=== PATIENT | female | born 1965 | race Caucasian/White ===

== ENCOUNTER 2019-08-20 13:11 | Emergency (ER) | payer OTHER, SELFPAY ==
[2019-08-20 13:34] VITALS: BP 133/61; PULSE 93; RESP 20; TEMP 37; O2SAT 96
--- NOTE | 2019-08-20 14:01 | ED.SKABFB ---
HPI - Skin/Abscess/Foreign Bdy General Chief complaint: Skin/Abscess/Foreign Body Stated complaint: Tick bite on stomach Time Seen by Provider: 08/20/19 14:11 Source: patient and RN notes reviewed Mode of arrival: ambulatory Limitations: no limitations History of Present Illness HPI narrative: 54-year-old female presents with concern for sore on her abdomen. Reports she is currently being treated with doxycycline since August 15, 2019 for a tick bite. Reports the area where she pulled the tick off is red and tender with a scab. Reports she has been using antibiotic ointment. Reports the tick bite was 1 month ago, the area became red 1 week after the bite. Reports her doctor saw the tick bite area on August 14 when she prescribed the doxycycline. She reports the area has not worsened since August 14. In a separate complaint she reports exacerbation of chronic neck pain. She denies any weakness in any extremity, decreased range of motion of the neck. MD complaint: insect bite/sting Related Data Home Medications Medication Instructions Recorded Confirmed tramadol 50 mg PO DAILY 08/20/19 08/20/19 Allergies Allergy/AdvReac Type Severity Reaction Status Date / Time cephalexin Allergy Intermediate Swelling Verified 08/20/19 13:52 ciprofloxacin Allergy Intermediate Swelling Verified 08/20/19 13:52 egg Allergy Unknown Unknown Unverified 08/20/19 13:52 sulfamethoxazole Allergy Unknown Rash Verified 08/20/19 13:52 trimethoprim Allergy Unknown Rash Verified 08/20/19 13:52 Review of Systems Review of Systems: Narrative: CONSTITUTIONAL: Denies malaise, chills, sweats, or fever. CARDIOVASCULAR: Denies chest pain, palpitations RESPIRATORY: Denies dyspnea. GASTROINTESTINAL: Denies abdominal pain, nausea, vomiting SKIN: Reports red tender area with scab where she sustained a tick bite on her abdomen MUSCULOSKELETAL: Denies back pain, joint pain, or myalgia. Reports chronic neck pain NEUROLOGIC: Denies numbness, weakness, or headache. All systems reviewed & are unremarkable except as noted in HPI and below PMFSH Comments At time of signature, agree with nursing past medical, surgical, social and family history. There is no relevant family history pertinent to the presenting complaint Exam Narrative: Exam Narrative: GENERAL: Well-appearing, well-nourished, and in no acute distress. HEAD: Normocephalic, atraumatic. EYES: PERRLA, conjunctivae clear, and EOMI. No nystagmus. ENT: Nares clear. Mucous membranes moist. NECK: Supple. CHEST: No respiratory distress. Speaks in full sentences. HEART: Regular rate and rhythm. EXTREMITIES: Normal range of motion. No edema. Normal strength and sensation. SKIN: Warm, dry, no rash. 3 cm x 2 cm area of erythema with mild induration, superficial no fluctuation, center scab approximately 0.5 cm NEURO: Alert and oriented x3. No focal deficits. Cranial nerves II through XII grossly intact PSYCH: Normal mood and affect Course Course Emergency Course: Discussed with patient treatment of insect bite, discussed not adding an additional antibiotic for cellulitis because the area has not evolved in the last 3 weeks, erythema is superficial. Patient is aware of diagnosis, understands and agrees to treatment plan. Anticipatory guidance given. Patient agrees to follow-up as directed and is aware of reasons to seek care at the emergency department. Portions of this record may have been created with voice recognition software Vital Signs Vital signs: Vital Signs Temperature 98.6 F 08/20/19 13:34 Pulse Rate 93 08/20/19 13:34 Respiratory Rate 08/20/19 13:34 Blood Pressure 133/61 08/20/19 13:34 Pulse Oximetry 96 08/20/19 13:34 Temperature 98.6 F 08/20/19 13:34 Pulse Rate 93 08/20/19 13:34 Respiratory Rate 08/20/19 13:34 Blood Pressure 133/61 08/20/19 13:34 Pulse Oximetry 96 08/20/19 13:34 Reviewed. MDM - Skin/Abscess/Foreign Bdy MDM Narrative Medical decision making connor
== END 2019-08-20 14:25 | disposition home or self-care (01) ==
PROVIDERS: Emergency Provider Nurse Practitioner; PCP Internal Medicine
DX: S30.861A Insect bite (nonvenomous) of abdominal wall, initial encounter (principal); M54.2 Cervicalgia; G89.29 Other chronic pain; W57.XXXA Bitten or stung by nonvenomous insect and other nonvenomous arthropods, initial encounter; I10 Essential (primary) hypertension; E11.9 Type 2 diabetes mellitus without complications; E78.00 Pure hypercholesterolemia, unspecified; Z79.4 Long term (current) use of insulin
CPT/HCPCS: 99211; G0463

== ENCOUNTER 2019-09-21 14:49 | Emergency (ER) | payer OTHER, SELFPAY ==
[2019-09-21 14:52] VITALS: BP 149/83; PULSE 94; RESP 20; TEMP 36.7; O2SAT 98
--- NOTE | 2019-09-21 15:15 | ED.SKABFB ---
HPI - Skin/Abscess/Foreign Bdy General Stated complaint: right breast abcess Time Seen by Provider: 09/21/19 15:15 Source: patient and RN notes reviewed History of Present Illness HPI narrative: Patient is a 54-year-old female who presents the urgent care with complaints of a possible abscess to the right breast. Patient states that she had a cyst removed from the exact same area approximately 2 to 3 years ago and it has now returned. Patient was treated with Augmentin on 08-28 for possible abscess of the breast and it has not worked . Patient states that in the past they also treated her with antibiotics and then sent her to surgery immediately after her doctor's appointment. Patient states that it is present in the exact same form. Denies of any fever, chills, nausea, vomiting. Denies any change in the area. States it is very painful. Denies of any history of breast cancer. Patient is anxious but otherwise no other acute distress noted. Patient aware of the plan of care. Related Data Home Medications Medication Instructions Recorded Confirmed albuterol sulfate 1 puff INHALATION DIRECTED PRN 08/20/19 09/21/19 albuterol sulfate 2.5 mg INHALATION DIRECTED PRN 08/20/19 09/21/19 cariprazine [Vraylar] 3 mg PO DAILY 08/20/19 09/21/19 cetirizine 10 mg PO DAILY 08/20/19 09/21/19 cholecalciferol (vitamin D3) 1,000 unit PO DAILY 08/20/19 09/21/19 [Vitamin D3] duloxetine 60 mg PO BID 08/20/19 09/21/19 famotidine 20 mg PO BID 08/20/19 09/21/19 gabapentin 300 mg PO DAILY 08/20/19 09/21/19 glimepiride 4 mg PO DAILY 08/20/19 09/21/19 hydrochlorothiazide 12.5 mg PO TID 08/20/19 09/21/19 hydroxyzine HCl 50 mg PO DAILY 08/20/19 09/21/19 ibuprofen 600 mg PO Q8-12H PRN 08/20/19 09/21/19 insulin glargine [Basaglar KwikPen 0 unit SUBCUT DIRECTED 08/20/19 09/21/19 U-100 Insulin] insulin lispro [Admelog SoloStar 0 unit SUBCUT DIRECTED 08/20/19 09/21/19 U-100 Insulin] losartan 50 mg PO DAILY 08/20/19 09/21/19 nicotine 1 patch TRANSDERMAL DAILY 08/20/19 09/21/19 pravastatin 40 mg PO DAILY 08/20/19 09/21/19 ropinirole 2 mg PO POST-TRANSFUSION 08/20/19 09/21/19 sitagliptin [Januvia] 100 mg PO DAILY 08/20/19 09/21/19 tramadol 50 mg PO DAILY 08/20/19 09/21/19 umeclidinium [Incruse Ellipta] 1 inh INHALATION DAILY 08/20/19 09/21/19 Allergies Allergy/AdvReac Type Severity Reaction Status Date / Time cephalexin Allergy Intermediate Swelling Verified 08/20/19 13:52 ciprofloxacin Allergy Intermediate Swelling Verified 08/20/19 13:52 egg Allergy Unknown Unknown Unverified 08/20/19 13:52 sulfamethoxazole Allergy Unknown Rash Verified 08/20/19 13:52 trimethoprim Allergy Unknown Rash Verified 08/20/19 13:52 peanut Allergy Rash Verified 09/21/19 15:11 Review of Systems Review of Systems: Narrative: CONSTITUTIONAL: Denies fever, chills, or sweats. EYES: Denies visual changes, redness, or discharge. ENT: Denies rhinorrhea, congestion, sore throat, or otalgia. CARDIOVASCULAR: Denies chest pain, palpitations, or edema. RESPIRATORY: Denies cough or dyspnea. GASTROINTESTINAL: Denies abdominal pain, nausea, vomiting, or diarrhea. GENITOURINARY: Denies dysuria or hematuria. SKIN: Reports of an abscess to the right breast MUSCULOSKELETAL: Denies back pain, joint pain, or myalgia. NEUROLOGIC: Denies headache, numbness, or weakness. All other systems reviewed are negative, except as documented in HPI. PMFSH Comments At the time of my signature, I reviewed and agree with the nursing past medical, surgical, social, and family history. There is no relevant family history pertinent to the patient complaint. Exam Narrative: Exam Narrative: GENERAL: This is a well-nourished, well-developed patient, in no apparent distress. HEAD: normocephalic, atraumatic. EYES: PERRL. Sclera clear/white. Vision is grossly intact. EARS: External ears normal NOSE: External nose normal with no obvious nasal discharge, nares without redness, no rhinorrhea. THROAT: Mucous
== END 2019-09-21 15:35 | disposition home or self-care (01) ==
PROVIDERS: Emergency Provider Nurse Practitioner Family; PCP Internal Medicine
DX: N63.10 Unspecified lump in the right breast, unspecified quadrant (principal); E78.00 Pure hypercholesterolemia, unspecified; J45.909 Unspecified asthma, uncomplicated; I10 Essential (primary) hypertension; K21.9 Gastro-esophageal reflux disease without esophagitis; E11.9 Type 2 diabetes mellitus without complications; Z79.4 Long term (current) use of insulin; Z79.84 Long term (current) use of oral hypoglycemic drugs
CPT/HCPCS: 99213; G0463

== ENCOUNTER 2019-11-26 16:42 | Emergency (ER) | payer OTHER, SELFPAY ==
[2019-11-26 16:48] VITALS: BP 146/66; PULSE 102; RESP 20; TEMP 36.8; O2SAT 96
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
[2019-11-26] MEDS: SILVER SULFADIAZINE 1% CR 50 GM JAR (*BKC) 1 APPLIC TOPICAL (17:30)
[2019-11-26] MEDS: KETOROLAC (*BKC) 60 MG/2 ML VIAL IM (17:30)
== END 2019-11-26 18:02 | disposition home or self-care (01) ==
PROVIDERS: Emergency Provider Nurse Practitioner Family
DX: T22.112A Burn of first degree of left forearm, initial encounter (principal); X10.2XXA Contact with fats and cooking oils, initial encounter; M19.90 Unspecified osteoarthritis, unspecified site; J45.909 Unspecified asthma, uncomplicated; E11.9 Type 2 diabetes mellitus without complications; K21.9 Gastro-esophageal reflux disease without esophagitis; E78.00 Pure hypercholesterolemia, unspecified; I10 Essential (primary) hypertension
CPT/HCPCS: 16020; 96372; 99213; A9270; G0463; J1885

== ENCOUNTER 2020-01-08 17:29 | Emergency (ER) | payer OTHER, SELFPAY ==
--- NOTE | ~2020-01-08 | XR_ITS ---
EXAMINATION: XR hand RT min 3V INDICATION: Right hand pain TECHNIQUE: Three views of the right hand are obtained. COMPARISON: Left wrist radiograph dated 06/18/2018 FINDINGS: There is no fracture, dislocation, or subluxation. The bones, soft tissues, and joint space s are normal. IMPRESSION: 1. No acute osseous abnormality. Reviewed, dictated and finalized at location A.
[2020-01-08 17:34] VITALS: BP 130/75; PULSE 105; RESP 20; TEMP 36.9; O2SAT 96
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
== END 2020-01-08 18:40 | disposition home or self-care (01) ==
PROVIDERS: Emergency Provider Registered Nurse; PCP Internal Medicine
DX: S60.221D Contusion of right hand, subsequent encounter (principal); W22.09XD Striking against other stationary object, subsequent encounter; M19.90 Unspecified osteoarthritis, unspecified site; K21.9 Gastro-esophageal reflux disease without esophagitis; E11.9 Type 2 diabetes mellitus without complications; E78.00 Pure hypercholesterolemia, unspecified; I10 Essential (primary) hypertension
CPT/HCPCS: 73130; 99213; G0463

== ENCOUNTER 2020-01-21 13:51 | Emergency (ER) | payer OTHER, SELFPAY ==
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
[2020-01-21 14:01] VITALS: BP 128/81; PULSE 101; RESP 20; TEMP 36.5; O2SAT 98
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
== END 2020-01-21 15:30 | disposition home or self-care (01) ==
PROVIDERS: Emergency Provider Registered Nurse; PCP Internal Medicine
DX: R07.89 Other chest pain (principal); M54.2 Cervicalgia; S70.11XA Contusion of right thigh, initial encounter; S70.12XA Contusion of left thigh, initial encounter; S80.12XA Contusion of left lower leg, initial encounter; V47.5XXA Car driver injured in collision with fixed or stationary object in traffic accident, initial encounter; F17.210 Nicotine dependence, cigarettes, uncomplicated; M19.90 Unspecified osteoarthritis, unspecified site; E11.9 Type 2 diabetes mellitus without complications; K21.9 Gastro-esophageal reflux disease without esophagitis; E78.00 Pure hypercholesterolemia, unspecified; I10 Essential (primary) hypertension
CPT/HCPCS: 71046; 72050; 99214; G0463

== ENCOUNTER 2020-03-12 14:12 | Emergency (ER) | payer OTHER, SELFPAY ==
[2020-03-12 14:22] VITALS: BP 185/115; PULSE 104; RESP 20; TEMP 36.9; O2SAT 97
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
== END 2020-03-12 14:50 | disposition home or self-care (01) ==
PROVIDERS: Emergency Provider Nurse Practitioner; PCP Internal Medicine
DX: T22.212A Burn of second degree of left forearm, initial encounter (principal); X77.8XXA Intentional self-harm by other hot objects, initial encounter; F17.210 Nicotine dependence, cigarettes, uncomplicated; M19.90 Unspecified osteoarthritis, unspecified site; J45.909 Unspecified asthma, uncomplicated; E11.9 Type 2 diabetes mellitus without complications; K21.9 Gastro-esophageal reflux disease without esophagitis; E78.00 Pure hypercholesterolemia, unspecified; I10 Essential (primary) hypertension; F43.10 Post-traumatic stress disorder, unspecified
CPT/HCPCS: 16020; 99212; G0463

== ENCOUNTER 2020-08-09 16:28 | Emergency (ER) | payer OTHER, SELFPAY ==
[2020-08-09 16:36] VITALS: BP 128/90; PULSE 98; RESP 16; TEMP 36.8; O2SAT 99
--- NOTE | 2020-08-09 16:38 | ED.SKABFB ---
HPI - Skin/Abscess/Foreign Bdy General Chief complaint: Skin/Abscess/Foreign Body Stated complaint: Fish hook in hand Time Seen by Provider: 08/09/20 16:38 Source: patient and RN notes reviewed History of Present Illness HPI narrative: Patient is a 55-year-old female who presents the urgent care with complaints of a fishhook stuck in the right hand. Patient states that she was trying to pull in a large turtle while fishing prior to arrival and the hook went through her right hand. Patient states that she has attempted to pull it out with pliers but it is really stuck . Patient is not up-to-date on her tetanus. No other acute complaints. No acute distress noted. Patient aware of the plan of care. Some parts of this dictation were generated by voice recognition software and may contain typographical and/or grammatical inaccuracies. Related Data Home Medications Medication Instructions Recorded Confirmed cariprazine [Vraylar] 4.5 mg PO DAILY 08/20/19 08/09/20 cetirizine 10 mg PO DAILY 08/20/19 08/09/20 cholecalciferol (vitamin D3) 1,000 unit PO DAILY 08/20/19 08/09/20 [Vitamin D3] duloxetine 60 mg PO BID 08/20/19 08/09/20 hydrochlorothiazide 12.5 mg PO TID 08/20/19 08/09/20 hydroxyzine HCl 50 mg PO DAILY 08/20/19 08/09/20 ibuprofen 600 mg PO Q8-12H PRN 08/20/19 08/09/20 losartan 50 mg PO DAILY 08/20/19 08/09/20 pravastatin 40 mg PO DAILY 08/20/19 08/09/20 ropinirole 2 mg PO POST-TRANSFUSION 08/20/19 08/09/20 tramadol 50 mg PO DAILY 08/20/19 08/09/20 Humalog Mix 75-25(U-100)Insuln 75 sliding scale dose SUBCUT 11/26/19 08/09/20 TIDWMEAL pen needle, diabetic [Unifine 11/26/19 01/08/20 Pentips] empagliflozin [Jardiance] 10 mg PO DAILY 01/08/20 08/09/20 umeclidinium [Incruse Ellipta] 1 inh INHALATION HS 01/08/20 08/09/20 albuterol sulfate 03/12/20 03/12/20 gabapentin 300 mg PO DAILY 03/12/20 08/09/20 albuterol sulfate [Ventolin HFA] 90 mcg INHALATION PRN PRN 08/09/20 08/09/20 Allergies Allergy/AdvReac Type Severity Reaction Status Date / Time cephalexin Allergy Intermediate Swelling Verified 08/09/20 16:45 ciprofloxacin Allergy Intermediate Swelling Verified 08/09/20 16:45 egg Allergy Unknown Unknown Verified 08/09/20 16:45 sulfamethoxazole Allergy Unknown Rash Verified 08/09/20 16:45 trimethoprim Allergy Unknown Rash Verified 08/09/20 16:45 peanut Allergy Rash Verified 08/09/20 16:45 Review of Systems Review of Systems: Narrative: CONSTITUTIONAL: Denies fever, chills, or sweats. EYES: Denies visual changes, redness, or discharge. ENT: Denies rhinorrhea, congestion, sore throat, or otalgia. CARDIOVASCULAR: Denies chest pain, palpitations, or edema. RESPIRATORY: Denies cough or dyspnea. GASTROINTESTINAL: Denies abdominal pain, nausea, vomiting, or diarrhea. GENITOURINARY: Denies dysuria or hematuria. SKIN: Reports of a fishhook stuck in the right hand MUSCULOSKELETAL: Denies back pain, joint pain, or myalgia. NEUROLOGIC: Denies headache, numbness, or weakness. All other systems reviewed are negative, except as documented in HPI. [facility] Past Medical History Medical History Anxiety Arthritis Asthma Depression Diabetes History of gastroesophageal reflux (GERD) Hx of migraines Hypercholesteremia Hypertension Neck pain Post traumatic stress disorder (PTSD) Surgical History Surgical History History of carpal tunnel surgery bilateral Hx of tubal ligation Family History Family History Father , COPD Smoker in home Mother Diabetes mellitus Grandparent Ovarian cancer Social History Social History (Updated 01/23/20 @ 16:09 by Valentina Joe NP) Smoking packs per day: 0.5 Smoking cigarettes per day: 10.0 Years smoked: 50 Smoking pack-years: 25.00 Smoking status: Current every day smoker Tobacco type: cigarettes S
[2020-08-09] MEDS: TETANUS,DIPHTHERIA,AC PERTUSSIS ADULT (0.5 ML) BOOSTRIX IM (17:10)
== END 2020-08-09 17:23 | disposition home or self-care (01) ==
PROVIDERS: Emergency Provider Nurse Practitioner Family; PCP Internal Medicine
DX: S61.441A Puncture wound with foreign body of right hand, initial encounter (principal); X58.XXXA Exposure to other specified factors, initial encounter; Z23 Encounter for immunization; F17.210 Nicotine dependence, cigarettes, uncomplicated; M19.90 Unspecified osteoarthritis, unspecified site; E11.9 Type 2 diabetes mellitus without complications; K21.9 Gastro-esophageal reflux disease without esophagitis; E78.00 Pure hypercholesterolemia, unspecified; I10 Essential (primary) hypertension; F41.9 Anxiety disorder, unspecified; F32.9 Major depressive disorder, single episode, unspecified; F43.10 Post-traumatic stress disorder, unspecified
CPT/HCPCS: 10120; 90471; 90715; 99213; G0463

== ENCOUNTER 2020-11-29 17:41 | Emergency (ER) | payer OTHER, SELFPAY ==
--- NOTE | ~2020-11-29 | XR_ITS ---
XR foot LT min 3V DATE: 11/29/2020 17:58 INDICATION: Dropped rock on top of foot. Dorsal distal bruising and pain TECHNIQUE: 4 views COMPARISON: None FINDINGS: Plantar calcaneal enthesopathy. No fracture or dislocation, periosteal reaction or bone adelfo truction. Joint spaces are preserved. No erosive change. IMPRESSION: No fracture or dislocation Plantar calcaneal enthesopathy Reviewed, dictated and finalized at location A.
[2020-11-29 17:47] VITALS: BP 142/95; PULSE 105; RESP 16; TEMP 36.2; O2SAT 97
--- NOTE | 2020-11-29 18:00 | PC.NURSE ---
PT DECLINED ICE AND WHEELCHAIR FOR COMFORT
--- NOTE | 2020-11-29 18:16 | ED.LOWEXIN ---
HPI - Extremity Injury (Lower) General Chief Complaint: Extremity Injury, Lower Stated Complaint: Left foot injury Time Seen by Provider: 11/29/20 18:16 Source: patient History of Present Illness HPI Narrative: Patient presents with left foot bruising and tenderness. Patient states 3 days ago she dropped a heavy rock on her left foot. Patient is here on the advice of her daughter to have an x-ray of her foot. Related Data Home Medications Medication Instructions Recorded Confirmed cariprazine [Vraylar] 4.5 mg PO DAILY 08/20/19 11/29/20 cetirizine 10 mg PO DAILY 08/20/19 11/29/20 cholecalciferol (vitamin D3) 1,000 unit PO DAILY 08/20/19 11/29/20 [Vitamin D3] duloxetine 60 mg PO BID 08/20/19 11/29/20 hydrochlorothiazide 12.5 mg PO TID 08/20/19 11/29/20 hydroxyzine HCl 50 mg PO DAILY 08/20/19 11/29/20 ibuprofen 600 mg PO Q8-12H PRN 08/20/19 11/29/20 losartan 50 mg PO DAILY 08/20/19 11/29/20 pravastatin 40 mg PO DAILY 08/20/19 11/29/20 ropinirole 2 mg PO POST-TRANSFUSION 08/20/19 11/29/20 tramadol 50 mg PO DAILY 08/20/19 11/29/20 Humalog Mix 75-25(U-100)Insuln 40 units SUBCUT BID 11/26/19 11/29/20 pen needle, diabetic [Unifine 11/26/19 01/08/20 Pentips] empagliflozin [Jardiance] 10 mg PO DAILY 01/08/20 11/29/20 umeclidinium [Incruse Ellipta] 1 inh INHALATION HS 01/08/20 11/29/20 albuterol sulfate 2.5 mg INHALATION Q4-6H 03/12/20 03/12/20 gabapentin 300 mg PO DAILY 03/12/20 11/29/20 albuterol sulfate [Ventolin HFA] 90 mcg INHALATION PRN PRN 08/09/20 11/29/20 Allergies Allergy/AdvReac Type Severity Reaction Status Date / Time cephalexin Allergy Intermediate Swelling Verified 08/09/20 16:45 ciprofloxacin Allergy Intermediate Swelling Verified 08/09/20 16:45 egg Allergy Unknown Unknown Verified 08/09/20 16:45 sulfamethoxazole Allergy Unknown Rash Verified 08/09/20 16:45 trimethoprim Allergy Unknown Rash Verified 08/09/20 16:45 peanut Allergy Rash Verified 08/09/20 16:45 Review of Systems Review of Systems: CONSTITUTIONAL: Denies fever, chills, or sweats. EYES: Denies visual changes, redness, or discharge. ENT: Denies rhinorrhea, congestion, sore throat, or otalgia. CARDIOVASCULAR: Denies chest pain, palpitations, or edema. RESPIRATORY: Denies cough or dyspnea. GASTROINTESTINAL: Denies abdominal pain, nausea, vomiting, or diarrhea. GENITOURINARY: Denies dysuria or hematuria. SKIN: Denies rash or itching. MUSCULOSKELETAL: Denies back pain, joint pain, or myalgia. NEUROLOGIC: Denies headache, numbness, or weakness. PSYCHIATRIC: Denies anxiety or depression. [facility] Past Medical History Medical History Anxiety Arthritis Asthma Depression Diabetes History of gastroesophageal reflux (GERD) Hx of migraines Hypercholesteremia Hypertension Neck pain Post traumatic stress disorder (PTSD) Surgical History Surgical History History of carpal tunnel surgery bilateral Hx of tubal ligation Family History Family History Father , COPD Smoker in home Mother Diabetes mellitus Grandparent Ovarian cancer Social History Social History (Updated 01/23/20 @ 16:09 by Valentina Joe NP) Smoking packs per day: 0.5 Smoking cigarettes per day: 10.0 Years smoked: 50 Smoking pack-years: 25.00 Smoking status: Current every day smoker Tobacco type: cigarettes Second hand tobacco smoke exposure: No Alcohol intake: never Substance use: never Gender identity (if verbalized by the patient): Female Comments At time of signature, agree with nursing past medical, surgical, social and family history. There is no relevant family history pertinent to the presenting complaint Exam Narrative: GENERAL: Well-appearing, well-nourished, and in no acute distress. HEAD: Normocephalic, atraumatic. EYES: PERRLA and EOMI. ENT: Nares clear, no r
== END 2020-11-29 18:37 | disposition home or self-care (01) ==
PROVIDERS: Emergency Provider Nurse Practitioner Family; PCP Internal Medicine
DX: S90.32XA Contusion of left foot, initial encounter (principal); W20.8XXA Other cause of strike by thrown, projected or falling object, initial encounter; F17.219 Nicotine dependence, cigarettes, with unspecified nicotine-induced disorders; M19.90 Unspecified osteoarthritis, unspecified site; J45.909 Unspecified asthma, uncomplicated; E11.9 Type 2 diabetes mellitus without complications; K21.9 Gastro-esophageal reflux disease without esophagitis; E78.00 Pure hypercholesterolemia, unspecified; I10 Essential (primary) hypertension; F41.9 Anxiety disorder, unspecified
CPT/HCPCS: 73630; 99213; G0463

== ENCOUNTER 2021-08-20 17:36 | Emergency (ER) | payer OTHER, SELFPAY ==
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
[2021-08-20 17:51] VITALS: BP 178/92; PULSE 118; RESP 16; TEMP 37.2; O2SAT 96
[2021-08-20 18:03] VITALS: BP 178/92; PULSE 118; RESP 16; TEMP 37.2; O2SAT 96
== END 2021-08-20 18:20 | disposition home or self-care (01) ==
PROVIDERS: Emergency Provider Nurse Practitioner; PCP Physician Assistant
DX: S69.91XA Unspecified injury of right wrist, hand and finger(s), initial encounter (principal); W22.09XA Striking against other stationary object, initial encounter; F17.210 Nicotine dependence, cigarettes, uncomplicated; M19.90 Unspecified osteoarthritis, unspecified site; J45.909 Unspecified asthma, uncomplicated; E11.9 Type 2 diabetes mellitus without complications; K21.9 Gastro-esophageal reflux disease without esophagitis; E78.00 Pure hypercholesterolemia, unspecified; I10 Essential (primary) hypertension
CPT/HCPCS: 73130; 99213; G0463

== ENCOUNTER 2022-09-20 14:41 | Emergency (ER) | payer OTHER, SELFPAY ==
[2022-09-20 14:46] VITALS: BP 143/87; PULSE 96; RESP 20; TEMP 36.1; O2SAT 96
--- NOTE | 2022-09-20 14:47 | ED.EYEPROB ---
HPI - Eye Problem General Chief complaint: Eye Problems Stated complaint: outside of left eye pain Time Seen by Provider: 09/20/22 14:47 Source: patient and RN notes reviewed History of Present Illness HPI Narrative: Patient is a 57-year-old female presents to urgent care with complaints of pain to the inner canthus of the left eye. Patient states that she has had minimal drainage but mostly pain. Denies any known injury or changes in vision. No acute distress noted. Patient states that she has used a warm compress. Patient aware of the care. Some parts of this dictation were generated by voice recognition software and may contain typographical and/or grammatical inaccuracies. Related Data Home Medications Medication Instructions Recorded Confirmed cetirizine 10 mg tablet 10 mg PO DAILY 08/20/19 08/20/21 cholecalciferol (vitamin D3) 25 1,000 unit PO DAILY 08/20/19 08/20/21 mcg (1,000 unit) tablet (Vitamin D3) hydrochlorothiazide 12.5 mg capsule 12.5 mg PO TID 08/20/19 08/20/21 ibuprofen 600 mg tablet 600 mg PO Q8-12H PRN Pain 08/20/19 08/20/21 losartan 50 mg tablet 50 mg PO DAILY 08/20/19 08/20/21 pravastatin 40 mg tablet 40 mg PO DAILY 08/20/19 08/20/21 ropinirole 2 mg tablet 2 mg PO POST-TRANSFUSION 08/20/19 08/20/21 tramadol 50 mg tablet 50 mg PO DAILY 08/20/19 08/20/21 Humalog Mix 75-25(U-100)Insuln 40 units subcut BID 11/26/19 08/20/21 pen needle, diabetic 32 gauge x 11/26/19 01/08/2032 (Unifine Pentips) empagliflozin 10 mg tablet 10 mg PO DAILY 01/08/20 08/20/21 (Jardiance) umeclidinium 62.5 mcg/actuation 1 inh inhalation HS 01/08/20 08/20/21 blister powder for inhalation (Incruse Ellipta) albuterol sulfate 2.5 mg/3 mL 2.5 mg inhalation Q4-6H 03/12/20 08/20/21 (0.083 %) solution for nebulization gabapentin 300 mg capsule 300 mg PO DAILY 03/12/20 08/20/21 albuterol sulfate 90 mcg/actuation 90 mcg inhalation PRN PRN 08/09/20 08/20/21 aerosol inhaler (Ventolin HFA) Shortness Of Breath Or Wheezing Allergies Allergy/AdvReac Type Severity Reaction Status Date / Time cephalexin Allergy Intermediate Swelling Verified 08/20/21 17:47 ciprofloxacin Allergy Intermediate Swelling Verified 08/20/21 17:47 egg Allergy Unknown Unknown Verified 08/20/21 17:47 sulfamethoxazole Allergy Unknown Rash Verified 08/20/21 17:47 trimethoprim Allergy Unknown Rash Verified 08/20/21 17:47 peanut Allergy Rash Verified 08/20/21 17:47 Review of Systems Review of Systems: CONSTITUTIONAL: Denies fever, chills, or sweats. EYES: Denies visual changes, redness, or discharge. Reports pain to the inner canthus of the ENT: Denies rhinorrhea, congestion, sore throat, or otalgia. CARDIOVASCULAR: Denies chest pain, palpitations, or edema. RESPIRATORY: Denies cough or dyspnea. GASTROINTESTINAL: Denies abdominal pain, nausea, vomiting, or diarrhea. GENITOURINARY: Denies dysuria or hematuria. SKIN: Denies rash or itching. MUSCULOSKELETAL: Denies back pain, joint pain, or myalgia. NEUROLOGIC: Denies headache, numbness, or weakness. All other systems reviewed are negative, except as documented in HPI. [facility] Past Medical History Medical History Anxiety Arthritis Asthma Depression Diabetes History of gastroesophageal reflux (GERD) Hx of migraines Hypercholesteremia Hypertension Neck pain Post traumatic stress disorder (PTSD) Surgical History Surgical History History of carpal tunnel surgery bilateral Hx of tubal ligation Family History Family History Father , COPD Smoker in home Mother Diabetes mellitus Grandparent Ovarian cancer Social History Social History (Updated 01/23/20 @ 16:09 by Valentina Joe NP) Smoking packs per day: 0.5 Smoking cigarettes per day: 10.0 Years smoked: 50 Smoking pack-years: 25.00 Smoking
== END 2022-09-20 15:10 | disposition home or self-care (01) ==
PROVIDERS: Emergency Provider Nurse Practitioner Family; PCP Internal Medicine
DX: H00.015 Hordeolum externum left lower eyelid (principal); F17.210 Nicotine dependence, cigarettes, uncomplicated; M19.90 Unspecified osteoarthritis, unspecified site; E11.9 Type 2 diabetes mellitus without complications; K21.9 Gastro-esophageal reflux disease without esophagitis; E78.00 Pure hypercholesterolemia, unspecified; I10 Essential (primary) hypertension
CPT/HCPCS: 99213; G0463

== ENCOUNTER 2023-06-08 19:50 | Emergency (ER) | payer OTHER, SELFPAY ==
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
[2023-06-08 19:56] VITALS: BP 155/95; PULSE 88; RESP 20; TEMP 37; O2SAT 99
--- NOTE | 2023-06-08 20:00 | ED.LOWEXIN ---
HPI - Extremity Injury (Lower) General Stated Complaint: Fall Injury/Right Knee Time Seen by Provider: 06/08/23 20:04 Source: patient Mode of arrival: ambulatory Limitations: no limitations History of Present Illness HPI Narrative: 58 y/o female presented for c/o right knee pain after a fall prior to arrival. States she tripped over a rug and may have twisted her knee. Endorses pain with ambulating. Denies numbness, tingling or weakness, denies deformity or swelling at this time. Denies any other injury. Pt drove herself. Related Data Home Medications Medication Instructions Recorded Confirmed cetirizine 10 mg tablet 10 mg PO DAILY 08/20/19 06/08/23 cholecalciferol (vitamin D3) 25 1,000 unit PO DAILY 08/20/19 06/08/23 mcg (1,000 unit) tablet (Vitamin D3) hydrochlorothiazide 12.5 mg capsule 12.5 mg PO TID 08/20/19 06/08/23 ibuprofen 600 mg tablet 600 mg PO Q8-12H PRN Pain 08/20/19 06/08/23 pen needle, diabetic 32 gauge x 11/26/19 06/08/23/32 (Unifine Pentips) empagliflozin 10 mg tablet 10 mg PO DAILY 01/08/20 06/08/23 (Jardiance) albuterol sulfate 2.5 mg/3 mL 2.5 mg inhalation Q4-6H 03/12/20 06/08/23 (0.083 %) solution for nebulization gabapentin 300 mg capsule 300 mg PO DAILY 03/12/20 06/08/23 albuterol sulfate 90 mcg/actuation 90 mcg inhalation PRN PRN 08/09/20 06/08/23 aerosol inhaler (Ventolin HFA) Shortness Of Breath Or Wheezing atorvastatin 40 mg tablet 40 mg PO DAILY 06/08/23 06/08/23 insulin lispro protamine-lispro 35 unit subcut BID 06/08/23 06/08/23 100 unit/mL (75-25) subcutaneous pen lidocaine 5 % topical patch 1 patch topical DAILY 06/08/23 06/08/23 Allergies Allergy/AdvReac Type Severity Reaction Status Date / Time cephalexin Allergy Intermediate Swelling Verified 06/08/23 20:02 ciprofloxacin Allergy Intermediate Swelling Verified 06/08/23 20:02 egg Allergy Unknown Unknown Verified 06/08/23 20:02 sulfamethoxazole Allergy Unknown Rash Verified 06/08/23 20:02 trimethoprim Allergy Unknown Rash Verified 06/08/23 20:02 peanut Allergy Rash Verified 06/08/23 20:02 Review of Systems Review of Systems: CONSTITUTIONAL: Denies body aches, fever, chills CARDIOVASCULAR: Denies chest pain, palpitations, or edema. RESPIRATORY: Denies cough or dyspnea. GASTROINTESTINAL: Denies abdominal pain, nausea, vomiting, or diarrhea. SKIN: Denies rash, itching, or wounds. MUSCULOSKELETAL: Reports right knee pain Denies back pain, or myalgia. NEUROLOGIC: Denies numbness, tingling, or weakness. All systems reviewed & are unremarkable except as noted in HPI and below PMFSH Past Medical History Medical History Anxiety Arthritis Asthma Depression Diabetes History of gastroesophageal reflux (GERD) Hx of migraines Hypercholesteremia Hypertension Neck pain Post traumatic stress disorder (PTSD) Surgical History Surgical History History of carpal tunnel surgery bilateral Hx of tubal ligation Family History Family History Father , COPD Smoker in home Mother Diabetes mellitus Grandparent Ovarian cancer Social History Social History Smoking packs per day: 0.5 Smoking cigarettes per day: 10.0 Years smoked: 50 Smoking pack-years: 25.00 Smoking status: Current every day smoker Tobacco type: cigarettes Second hand tobacco smoke exposure: No Alcohol intake: never Substance use: never Living arrangements: with family Occupation/Education: unemployed Gender identity (if verbalized by the patient): Female Comments At time of signature, I have reviewed and agree with nursing past medical, surgical, social and family history unless otherwise noted. Please see nursing chart for further information. There is no relevant family history pertinent to
== END 2023-06-08 20:53 | disposition home or self-care (01) ==
PROVIDERS: Emergency Provider Nurse Practitioner Family; PCP Internal Medicine
DX: M25.561 Pain in right knee (principal); F17.210 Nicotine dependence, cigarettes, uncomplicated; M19.90 Unspecified osteoarthritis, unspecified site; J45.909 Unspecified asthma, uncomplicated; Z79.4 Long term (current) use of insulin; E11.9 Type 2 diabetes mellitus without complications; K21.9 Gastro-esophageal reflux disease without esophagitis; E78.00 Pure hypercholesterolemia, unspecified; I10 Essential (primary) hypertension
CPT/HCPCS: 73564; 99213; G0463

== ENCOUNTER 2023-08-18 10:51 | Emergency (ER) | payer OTHER, SELFPAY ==
[2023-08-18 10:56] VITALS: BP 140/70; PULSE 91; RESP 18; TEMP 36.4; O2SAT 97
--- NOTE | 2023-08-18 11:07 | ED.EAR ---
HPI - Ear Problem General Chief complaint: Ear Stated complaint: Left Ear Pain Time Seen by Provider: 08/18/23 11:09 Source: patient Mode of arrival: ambulatory Limitations: no limitations History of Present Illness HPI Narrative: 58-year-old female presented for complaint of left ear pain over the past few days. Endorses slight decrease in hearing. Taking ibuprofen without any improvement. Tinnitus, dizziness, nausea vomiting, fevers or chills. MD Complaint: ear pain Related Data Home Medications Medication Instructions Recorded Confirmed cholecalciferol (vitamin D3) 25 1,000 unit PO DAILY 08/20/19 08/18/23 mcg (1,000 unit) tablet (Vitamin D3) pen needle, diabetic 32 gauge x 11/26/19 08/18/23 (Unifine Pentips) empagliflozin 10 mg tablet 10 mg PO DAILY 01/08/20 08/18/23 (Jardiance) albuterol sulfate 2.5 mg/3 mL 2.5 mg inhalation Q4-6H 03/12/20 08/18/23 (0.083 %) solution for nebulization gabapentin 300 mg capsule 300 mg PO DAILY 03/12/20 08/18/23 albuterol sulfate 90 mcg/actuation 90 mcg inhalation PRN PRN 08/09/20 08/18/23 aerosol inhaler (Ventolin HFA) Shortness Of Breath Or Wheezing insulin lispro protamine-lispro 35 unit subcut BID 06/08/23 08/18/23 100 unit/mL (75-25) subcutaneous pen aripiprazole 10 mg tablet 10 mg PO DAILY 08/18/23 08/18/23 ciprofloxacin HCl 0.3 % eye drops See Rx Instructions .Route .COMPLEX 08/18/23 08/18/23 escitalopram oxalate 10 mg tablet 10 mg PO DAILY 08/18/23 08/18/23 Allergies Allergy/AdvReac Type Severity Reaction Status Date / Time cephalexin Allergy Intermediate Swelling Verified 08/18/23 11:06 ciprofloxacin Allergy Intermediate Swelling Verified 08/18/23 11:06 egg Allergy Unknown Unknown Verified 08/18/23 11:06 sulfamethoxazole Allergy Unknown Rash Verified 08/18/23 11:06 trimethoprim Allergy Unknown Rash Verified 08/18/23 11:06 peanut Allergy Rash Verified 08/18/23 11:06 Review of Systems Review of Systems: CONSTITUTIONAL: Denies malaise, chills, or fever. EYES: Denies visual changes, redness, or discharge. ENT: Denies rhinorrhea, congestion, sinus pain, and sore throat. Reports ear pain CARDIOVASCULAR: Denies chest pain, palpitations, or edema. RESPIRATORY: Denies cough or dyspnea. GASTROINTESTINAL: Denies abdominal pain, nausea, vomiting, diarrhea SKIN: Denies rash or itching. MUSCULOSKELETAL: Denies myalgia. NEUROLOGIC: Denies headache. All systems reviewed & are unremarkable except as noted in HPI and below PMFSH Past Medical History Medical History Anxiety Arthritis Asthma Depression Diabetes History of gastroesophageal reflux (GERD) Hx of migraines Hypercholesteremia Hypertension Neck pain Post traumatic stress disorder (PTSD) Surgical History Surgical History History of carpal tunnel surgery bilateral Hx of tubal ligation Family History Family History Father , COPD Smoker in home Mother Diabetes mellitus Grandparent Ovarian cancer Social History Social History Smoking packs per day: 0.5 Smoking cigarettes per day: 10.0 Years smoked: 50 Smoking pack-years: 25.00 Smoking status: Current every day smoker Tobacco type: cigarettes Second hand tobacco smoke exposure: No Alcohol intake: never Substance use: never Living arrangements: with family Occupation/Education: unemployed Gender identity (if verbalized by the patient): Female Comments At time of signature, agree with nursing past medical, surgical, social and family history. There is no relevant family history pertinent to the presenting complaint Exam Narrative: GENERAL: Well-appearing EYES: PERRLA, conjunctivae clear ENT: Nares clear. Mucous membranes moist. Right TM pearly fuller with dull light refle
== END 2023-08-18 11:22 | disposition home or self-care (01) ==
PROVIDERS: Emergency Provider Nurse Practitioner Family; PCP Internal Medicine
DX: H60.92 Unspecified otitis externa, left ear (principal); F17.210 Nicotine dependence, cigarettes, uncomplicated; M19.90 Unspecified osteoarthritis, unspecified site; J45.909 Unspecified asthma, uncomplicated; E11.9 Type 2 diabetes mellitus without complications; K21.9 Gastro-esophageal reflux disease without esophagitis; E78.00 Pure hypercholesterolemia, unspecified; I10 Essential (primary) hypertension; F41.9 Anxiety disorder, unspecified; F32.A Depression, unspecified
CPT/HCPCS: 99213; G0463

== ENCOUNTER 2024-08-31 18:20 | Emergency (ER) | payer OTHER, SELFPAY ==
--- OUTSIDE RECORDS SUMMARY | 2024-08-31 18:23 | XMS_ITS | Referral Summary ---
Author Organization [facility] Address [address] [place] [id number] Care Team Providers Care Tuber Helper Name Role Phone Len Ramsey MD Primary Care Provider [phone] Gill Drew MINK SLICER Unavailable [phone] Allergies Active Allergy Reactions Criticality Noted Date Comments Adhesive Rash Medium 12/10/2017 redness and blistering Caffeine Hives Medium 02/28/2016 Cephalexin Swelling Medium Chocolate Hives Medium 09/28/2017 Ciprofloxacin Swelling Medium Egg Derived Hives,Other (See comments) Medium 02/28/2016 Pt does not know Eggshell Membrane Hives Medium 09/28/2017 Metformin Diarrhea Low 12/24/2015 Nsaids (Non-Steroidal Anti-Inflammatory Drug) Itching Low 06/14/2018 Nuts Other (See comments) Low 07/16/2016 Pt does not know Shellfish Containing Products Hives Medium 09/28/2017 Sulfa (Sulfonamide Antibiotics) Vomiting Low 05/16/2018 Sulfasalazine Other (See comments) Low 07/16/2016 Pt does not know [place] Hives Medium 02/28/2016 Medications cetirizine (ZyrTEC) 10 mg tablet take 1 tablet (10MG) by oral route every day 0 0 Active rOPINIRole (REQUIP) 2 mg tablet Take 1 tablet (2 mg total) by mouth nightly Active hydroCHLOROthia zide (MICROZIDE) 12.5 mg capsule Take 1 capsule (12.5 mg total) by mouth daily Active losartan (COZAAR) 50 mg tablet Take 1 tablet (50 mg total) by mouth daily Active albuterol HFA (PROVENTIL HFA,VENTOLIN HFA,PROAIR HFA) 90 mcg/actuation inhalerIndicati ons:Bronchospas tic Pulmonary Disease Inhale 2 puffs every 4 (four) hours as needed for wheezing or shortness of breath 1 Inhaler 9 Active ibuprofen (ADVIL,MOTRIN) 600 mg tablet 0 Active gabapentin (NEURONTIN) 300 mg capsule 0 Active Incruse Ellipta 62.5 mcg/actuation blister with device 0 Active albuterol 2.5 mg /3 mL (0.083 %) nebulizer solution 2 Active atorvastatin (LIPITOR) 40 mg tablet 2 Active famotidine (PEPCID) 20 mg tablet 2 Active lamoTRIgine (LaMICtal) 25 mg tablet 2 Active lidocaine (LIDODERM) 5 % 3 Active baclofen (LIORESAL) 20 mg tablet 3 Active pen needle, diabetic 32 gauge x 5/32 needle Use to inject insulin up to 4times/day. E11.65 400 each 3 3 Active insulin degludec-liragl utide (XULTOPHY) 100 unit-3.6 mg /mL (3 mL) insulin pen penIndications: type 2 diabetes mellitus Inject 30 Units under the skin daily E11.65 30 mL 4 4 Active empagliflozin (JARDIANCE) 25 mg tabletIndicatio ns:type 2 diabetes mellitus Take 1 tablet (25 mg total) by mouth daily e11.65 90 tablet 3 4 12/08/19 25 Active cyclobenzaprine (FLEXERIL) 10 mg tablet TAKE 1 TABLET BY MOUTH THREE TIMES DAILY FOR UP TO 10 DAYS NEEDED FOR SHOULDER PAIN 4 Active lancets misc 1 each by other route daily Use to monitor blood sugar 2x daily. E11.65 200 each 3 4 Active blood-glucose meter kit Use daily as directed for monitoring of blood sugar for diabetes. E11.65 1 kit 4 Active blood glucose diagnostic (glucose blood) strip Check blood sugar 2x times a day or as directed. E11.65 200 each 4 4 Active Active Problems Problem Noted Date Diagnosed Date Class 2 severe obesity due t o excess calories with serious comorbidity and body mass index (BMI) of 39.0 to 39.9 in adult 12/16/2021 Assessment & Plan (04/03/2024 3:20 PM DISASTER RECOVERY ANALYST): This is a chronic condition which continues to improve Most likely due to insulin deficiency related to Uncontrolled diabetes 14 lbs. Weight loss since last office visit Encouraged healthy eating which includes a low carb diet. Avoiding processed foods, sweets and fried foods. Encouraged 30 minutes of walking at least 5 days per week Discussed that exercise can be broken down into small sessions- for example 2- 15 minutes sessions or 3- 10 minutes sessions. Assessment & Plan (12/13/2023 2:34 PM CDT): This is a chronic condition which continues 3 lbs. Weight loss since last office visit Encouraged healthy eating which includes a low carb diet. Avoiding processed foods, sweets and fried foods. Encouraged 30 minutes of walking at least 5 days per week Assessment & Plan (04/21/2023 2:20 PM DISASTER RECOVERY ANALYST): This is a chronic condition which continues to improve 2 lb weight loss since last office visit Encouraged healthy eating, small portion sizes and exercise Discussed eating vegetables such as tomatoes, lettuce, pickles Assessment & Plan (01/19/2023 2:41 PM CDT): This is a chronic condition which continues 10 lb weight loss since last office visit due to [id number] diabetes Encouraged to take medications eat healthy and exercise Assessment & Plan (06/23/2022 11:06 AM CDT): This is a chronic condition which is improving with 10lb weight loss since last office visit. Encouraged healthy eating and exercise Continue Victoza to promote weight loss Assessment & Plan (03/24/2022 7:46 AM DISASTER RECOVERY ANALYST): This is a chronic condition which is worsening Encouraged healthy eating and exercise Continue Victoza to promote weight loss Assessment & Plan (12/16/2021 10:12 AM CDT): This is a chronic condition which is worsening Encouraged healthy eating and exercise Continue Victoza to promote weight loss Hyperlipidemia associated with type 2 diabetes kaitlin padgett 09/30/2020 Assessment & Plan (04/03/2024 3:21 PM DISASTER RECOVERY ANALYST): This is a chronic condition which is elevated, not at goal . Goal is LDL less than 70 Continue atorvastatin Encouraged to eat healthy, include fresh fruits and vegetables daily and avoid eating fried foods more than once per week. Assessment & Plan (12/13/2023 2:33 PM CDT): This is a chronic condition which is not at goal . Goal is LDL less than 70 Continue atorvastatin. Most likely not taking this medication Encouraged to eat healthy, include fresh fruits and vegetables daily and avoid eating fried foods more than once per week. Assessment & Plan (04/21/2023 2:19 PM DISASTER RECOVERY ANALYST): This is a chronic condition which is not at goal of LDL less than 70 Continue atorvastatin Encouraged to eat healthy, include fresh fruits and vegetables daily and avoid eating fried foods more than once per week. Encouraged to take medications as prescribed. Assessment & Plan (01/19/2023 2:41 PM CDT): This is a chronic condition which is not at goal of LDL less than 70 due to lack of medication compliance Continue atorvastatin Encouraged to eat healthy, include fresh fruits and vegetables daily and avoid eating fried foods more than once per week. Encouraged to take medications as prescribed. Assessment & Plan (10/16/2022 2:36 PM CDT): This is a chronic condition which is not at goal of LDL less than 70 Continue atorvastatin Encouraged to eat healthy, include fresh fruits and vegetables daily and avoid eating fried foods more than once per week. Encouraged to take medications as prescribed. Assessment & Plan (06/23/2022 11:05 AM CDT): This is a chronic condition which is not at goal of less than 70. Personally reviewed lipid panel. continue atorvastatin 40 mg daily (high intensity). Encouraged to eat healthy, include fresh fruits and vegetables daily and avoid eating fried foods more than once per week. Please take medications as prescribed. Assessment & Plan (03/24/2022 7:45 AM DISASTER RECOVERY ANALYST): This is a chronic condition which is not at goal. Goal is less than 70. Personally reviewed lipid panel. continue atorvastatin 40 mg daily (high intensity). Encouraged to eat healthy, include fresh fruits and vegetables daily and avoid eating fried foods more than once per week. Please take medications as prescribed. Assessment & Plan (12/16/2021 10:14 AM CDT): This is a chronic condition which is not at goal. Goal is less than 70. Personally reviewed lipid panel. continue atorvastatin 40 mg daily (high intensity). Encouraged to eat healthy, include fresh fruits and vegetables daily and avoid eating fried foods more than once per week. Please take medications as prescribed. Assessment & Plan (09/15/2021 2:33 PM CDT): This is a chronic condition which is worsening and not at goal. Goal is less than 70. Personally reviewed lipid panel. continue atorvastatin 40 mg daily (high intensity). Encouraged to eat healthy, include fresh fruits and vegetables daily and avoid eating fried foods more than once per week. Please take medications as prescribed. Assessment & Plan (06/13/2021 1:54 PM DISASTER RECOVERY ANALYST): This is a chronic condition which is worsening and not at goal. Goal is less than 70. Personally reviewed lipid panel. LDL -156 on atorvastatin 40 mg daily (high intensity). Encouraged to eat healthy, include fresh fruits and vegetables daily and avoid eating fried foods more than once per week. Please take medications as prescribed. Assessment & Plan (03/31/2021 2:15 PM DISASTER RECOVERY ANALYST): This is a chronic condition which is worsening and not at goal. Goal is less than 70. Personally reviewed lipid panel. LDL -156 on atorvastatin 40 mg daily (high intensity). Encouraged to eat healthy, include fresh fruits and vegetables daily and avoid eating fried foods more than once per week. Please take medications as prescribed. Assessment & Plan (02/12/2021 1:52 PM DISASTER RECOVERY ANALYST): This is a chronic condition which is worsening and not at goal. Goal is less than 70. Personally reviewed lipid panel. LDL -156 (09/23) changed Pravastatin (moderate intensity) to atorvastatin 40 mg daily (high intensity). Encouraged to eat healthy, include fresh fruits and vegetables daily and avoid eating fried foods more than once per week. Please take medications as prescribed. Assessment & Plan (12/31/2020 1:09 PM CDT): This is a chronic condition which is worsening and not at goal. Goal is less than 70. Personally reviewed lipid panel. LDL -156 (09/23) changed Pravastatin (moderate intensity) to atorvastatin 40 mg daily (high intensity). Encouraged to eat healthy, include fresh fruits and vegetables daily and avoid eating fried foods more than once per week. Please take medications as prescribed. Assessment & Plan (09/30/2020 2:02 PM CDT): This is a chronic condition which is worsening and not at goal. Goal is less than 70. Personally reviewed lipid panel. LDL -156 (09/23) changed Pravastatin (moderate intensity) to atorvastatin 40 mg daily (high intensity). Encouraged to eat healthy, include fresh fruits and vegetables daily and avoid eating fried foods more than once per week. Please take medications as prescribed. Hypertension associated with diabetes 06/28/2020 Assessment & Plan (04/03/2024 3:21 PM DISASTER RECOVERY ANALYST): This is a chronic condition which is at goal. Goal is less than 140/90 Continue losartan/hydrochlorothiazide Encouraged to monitor weight and B/P at home. Assessment & Plan (12/13/2023 2:33 PM CDT): This is a chronic condition which is at goal. Goal is less than 140/90 Continue losartan Encouraged to monitor weight and B/P at home. Encouraged to void caffeine and excessive alcohol consumption as this will elevate B/P Assessment & Plan (04/21/2023 2:19 PM DISASTER RECOVERY ANALYST): This is a chronic condition which is at goal of less than 140/90 after 5 minutes of rest Personally reviewed labs. Continue losartan, hydrochlorothiazide Encouraged to monitor weight and B/P at home Encouraged to take medications as prescribed. Assessment & Plan (01/19/2023 2:41 PM CDT): This is a chronic condition which is at goal of less than 140/90 Personally reviewed labs. Continue losartan hydrochlorothiazide Encouraged to monitor weight and B/P at home Encouraged to take medications as prescribed. Assessment & Plan (10/16/2022 2:36 PM CDT): This is a chronic condition which is at goal of less than 140/90 Personally reviewed labs. Continue hydrochlorothiazide/losartan Encouraged to monitor weight and B/P at home Encouraged to take medications as prescribed. Assessment & Plan (06/23/2022 11:05 AM CDT): This is a chronic condition which is at goal of <140/90 Personally reviewed labs. Continue on HCTZ, losartan Avoid caffeine, caffeine will raise blood pressure and excessive alcohol consumption. Monitor your weight and B/P. Encouraged to take medications as prescribed. Assessment & Plan (03/24/2022 7:46 AM DISASTER RECOVERY ANALYST): This is a chronic condition which is at goal, Goal is <140/90 Personally reviewed labs. Continue on HCTZ, losartan Avoid caffeine, caffeine will raise blood pressure and excessive alcohol consumption. Monitor your weight and B/P. Encouraged to take medications as prescribed. Assessment & Plan (12/16/2021 10:15 AM CDT): This is a chronic condition which is at goal, Goal is <140/90 Personally reviewed labs. Continue on HCTZ, losartan Avoid caffeine, caffeine will raise blood pressure and excessive alcohol consumption. Monitor your weight and B/P. Encouraged to take medications as prescribed. Assessment & Plan (09/30/2020 1:48 PM CDT): This is a chronic condition and is at goal. Goal is <140/90 Personally reviewed labs. B/P today- 126/86 , currently on losartan and HCTZ Goal blood pressure is <140/90. Avoid caffeine, caffeine will raise blood pressure and excessive alcohol consumption. Monitor your weight and B/P. Please take medications as prescribed. Assessment & Plan (06/28/2020 2:57 PM CDT): This is a chronic condition and is stable, controlled, at goal on current therapy. Goal is <140/90 Personally reviewed labs. Avoid caffeine, caffeine will raise blood pressure and excessive alcohol consumption. Monitor your weight and B/P. Please take medications as prescribed. B/P today- 110/68 , currently on losartan and HCTZ Arthritis of lumbar spine 09/29/2017 Type 2 diabetes mellitus wit h hyperglycemia, without long-term current use of insulin Assessment & Plan (04/03/2024 3:20 PM DISASTER RECOVERY ANALYST): This is a chronic condition which is elevated, not at goal, worsening. Goal is less than 7%. Personally reviewed most recent A1c - Lab Results Component Value Date HGBA1C 12.5 04/03/2024 Personally reviewed POC blood sugar- elevated, not at goal of 80-180 Lab Results Component Value Date POCGLU 222 04/03/2024 Medication- continue Jardiance 25 mg daily, encouraged her to take xultophy 30 units daily as prescribed. Previously on Victoza, 70/30 insulin, 70/25 insulin, Lantus, humalog, glimperide, januvia, Humulin R, humulin N. Monitor blood sugar 2 times a day.. Encouraged annual eye exam. Monofilament foot exam completed. 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 Goal is <30 Continue losartan, hydrochlorothiazide Assessment & Plan (12/13/2023 2:32 PM CDT): This is a chronic condition which is worsening, not at goal . Goal is less than 7-8%. Personally reviewed most recent A1c - Lab Results Component Value Date HGBA1C 12.1 12/13/2023 Personally reviewed POC blood sugar- not at goal of 80-180 Lab Results Component Value Date POCGLU 360 12/13/2023 Medication- continue Jardiance 25 mg daily, start xultophy 30 units daily. Previously on Victoza, 70/30 insulin, 70/25 insulin, Lantus, humalog, glimperide, januvia, Humulin R, humulin N. Monitor blood sugar daily Encouraged annual eye exam. Monofilament foot exam completed. 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 Goal is <30 Continue losartan Assessment & Plan (04/21/2023 2:19 PM DISASTER RECOVERY ANALYST): This is a chronic condition which is improving but not at goal of less than 7%. Personally reviewed most recent A1c - Lab Results Component Value Date HGBA1C 8.9 04/21/2023 Personally reviewed POC blood sugar- at goal 80-180 Lab Results Component Value Date POCGLU 115 04/21/2023 Medication- continue Victoza 1.8mg daily, Jardiance 25 mg daily, stop 70/30 insulin as she was not taking it anyway Monitor blood sugar daily Encouraged annual eye exam. Monofilament foot exam completed. loss of protective senses. Treated with Gabapentin Personally reviewed CMP eGFR- 102 Kidney function- normal Urine microalbumin/creatinine ratio - at goal <30 treated with losartan, hydrochlorothiazide B/P today- at goal of <140/90 after 5 minutes of rest continue losartan, hydrochlorothiazide Personally reviewed lipid panel. Not at Goal of less than 70. Continue atorvastatin Assessment & Plan (01/19/2023 2:40 PM CDT): This is a chronic condition which is out of control , worsening not at goal of less than 7% due to medication noncompliance Personally reviewed most recent A1c - Lab Results Component Value Date HGBA1C 11.2 01/19/2023 Personally reviewed POC blood sugar- not at goal 80-180 Lab Results Component Value Date POCGLU 205 01/19/2023 Medication- Continue Victoza 1.8mg daily, Jardiance 25 mg daily, continue 70/25 35 units twice daily. Monitor blood sugar daily Encouraged annual eye exam. Monofilament foot exam completed. loss of protective senses. Treated with Gabapentin Personally reviewed CMP eGFR- 102 Kidney function- normal Urine microalbumin/creatinine ratio - at goal <30 treated with losartan/hydrochlorothiazide B/P today- at goal of <140/90. continue losartan, hydrochlorothiazide Personally reviewed lipid panel. at Goal of less than 70. Continue atorvastatin Assessment & Plan (10/16/2022 2:35 PM CDT): This is a chronic condition which is improving, but out of control and not at goal of less than 7% due to lack of medication compliance. Personally reviewed most recent A1c - Lab Results Component Value Date HGBA1C 10.8 10/16/2022 Personally reviewed POC blood sugar- not at goal 80-180 Lab Results Component Value Date POCGLU 220 10/16/2022 Medication- Continue Victoza 1.8mg daily, Jardiance 25 mg daily, continue 70/25 35 units twice daily. Monitor blood sugar 2x times a day. Encouraged annual eye exam. Monofilament foot exam completed. loss of protective senses. Treated with Gabapentin Personally reviewed CMP eGFR- 102 Kidney function- normal Urine microalbumin/creatinine ratio - at goal <30 treated with losartan hydrochlorothiazide B/P today- not at goal of <140/90. continue losartan hydrochlorothiazide Personally reviewed lipid panel. Not at Goal of less than 70. Continue atorvastatin Assessment & Plan (06/23/2022 11:05 AM CDT): This is a chronic condition which is out of control, worsening not at goal of less than 7%. Due to lack of monitor and medication noncompliance. Personally reviewed most recent A1c - Lab Results Component Value Date HGBA1C 11.3 06/23/2022 Personally reviewed POC blood sugar- not at goal 80-180 Lab Results Component Value Date POCGLU 361 06/23/2022 Medication- Continue Continue Victoza to 1.8mg daily, decreased Humalog 75/25 35 units twice a day. continue Jardiance 25 mg daily. Encouraged to take medication as prescribed. Monitor blood sugar 2x times a day. Encouraged annual eye exam. last dilated eye exam was at [facility] Monofilament foot exam completed, loss of protective senses. Treated with Gabapentin. Does not feel this has helped. Urine microalbumin/creatinine ratio - At goal <30. normal. continue HCTZ , losartan. Personally reviewed labs: BUN,creatinine- GFR- >60 Kidney function- normal B/P today-at goal blood pressure is <140/90. Continue losartan and HCTZ. Personally reviewed LDL -126 on atorvastatin 40 mg daily. Not at Goal of less than 70. No history of macrovascular disease - [place], [place]. Encouraged to take medications as prescribed. Labs per care everywhere- transcribed into [facility]. Assessment & Plan (03/24/2022 7:45 AM DISASTER RECOVERY ANALYST): This is a chronic condition which is not at goal due to lack of Victoza for 1- 1/2 weeks Personally reviewed last A1c- 8.1% poc glucose - 106 Not at goal of 80-180. Medication- Continue Victoza to 1.8mg daily, decreased Humalog 75/25 35 units twice a day. continue Jardiance 25 mg daily. Encouraged to take medication as prescribed. Monitor blood sugar 2x times a day. Encouraged annual eye exam. last dilated eye exam was at [facility] Monofilament foot exam completed, loss of protective senses. Treated with Gabapentin. Does not feel this has helped. Urine microalbumin/creatinine ratio - <30 normal. continue HCTZ , losartan. At goal <30 Personally reviewed labs: BUN,creatinine- GFR- >60 Kidney function- normal B/P today-at goal blood pressure is <140/90.Continue losartan and HCTZ. Personally reviewed LDL -126 on atorvastatin 40 mg daily. Not at Goal of less than 70. No history of macrovascular disease - [place]. Encouraged to take medications as prescribed. Labs per care everywhere- transcribed into [facility]. Assessment & Plan (12/16/2021 10:16 AM CDT): This is a chronic condition which is at goal with hypoglycemia. Personally reviewed last A1c- 6.4 % States is now taking medication as prescribed. Not at goal less than 7%. poc glucose in 78. Not at goal of 80-180. Treated with glucose tablets while in the office Medication- Continue Victoza to 1.8mg daily, decreased Humalog 75/25 35 units twice a day. continue Jardiance 25 mg daily. Encouraged to take medication as prescribed. Monitor blood sugar 2x times a day. Encouraged annual eye exam. last dilated eye exam was at [facility] Monofilament foot exam completed, loss of protective senses. Treated with Gabapentin. Does not feel this has helped. Urine microalbumin/creatinine ratio - <30 normal. continue HCTZ , losartan. At goal <30 Personally reviewed labs: BUN,creatinine- GFR- >60 Kidney function- normal B/P today-at goal. Continue losartan and HCTZ. Goal blood pressure is <140/90. Personally reviewed LDL -126 on atorvastatin 40 mg daily. Not at Goal of less than 70. No history of macrovascular disease - [place]. Encouraged to take medications as prescribed. Labs per care everywhere- transcribed into [facility]. Assessment & Plan (09/15/2021 2:32 PM CDT): This is a chronic condition which is uncontrolled with hyperglycemia, not at goal. Personally reviewed last A1c- 10% States is now taking medication as prescribed. Not at goal less than 7%. poc glucose in 139. Not at goal of 80-180. Medication- Continue Victoza to 1.8mg daily,continue Humalog 75/25 45 units twice a day. continue Jardiance 25 mg daily. Encouraged to take medication as prescribed. Monitor blood sugar 2x times a day. Encouraged annual eye exam. last dilated eye exam was at [facility] Monofilament foot exam completed, loss of protective senses. Treated with Gabapentin. Does not feel this has helped. Urine microalbumin/creatinine ratio - <30 normal. continue HCTZ , At goal <30 Personally reviewed labs: BUN,creatinine- GFR- >60 Kidney function- normal B/P today- 144/86 , currently on losartan and HCTZ Goal blood pressure is <140/90. Personally reviewed LDL -126 on atorvastatin 40 mg daily. Not at Goal of less than 70. No history of macrovascular disease - [place]. Encouraged to take medications as prescribed. Labs per care everywhere- transcribed into [employer]. Assessment & Plan (06/13/2021 2:08 PM DISASTER RECOVERY ANALYST): This is a chronic condition which is uncontrolled with hyperglycemia, not at goal. Not taking medication Personally reviewed A1c- decreased to 11.2 States is now taking medication as prescribed. Not at goal less than 7%. poc glucose in 268. Not at goal of 80-180. Medication- Continue Victoza to 1.8mg daily,continue Humalog 75/25 45 units twice a day. continue Jardiance 25 mg daily. Encouraged to take medication as prescribed. Monitor blood sugar 2x times a day. Encouraged annual eye exam. last dilated eye exam was at [facility] Monofilament foot exam completed, loss of protective senses. Treated with Gabapentin. Does not feel this has helped. Urine microalbumin/creatinine ratio - <30 normal. currently HCTZ , At goal <30 Personally reviewed labs: BUN- 11, creatinine- 0.67 GFR- 98 Kidney function- normal B/P today- 124/80 , currently on losartan and HCTZ Goal blood pressure is <140/90. Personally reviewed LDL -156 on atorvastatin 40 mg daily. Not at Goal of less than 70. No history of macrovascular disease - [place], [place]. Encouraged to take medications as prescribed. Assessment & Plan (03/31/2021 2:12 PM DISASTER RECOVERY ANALYST): This is a chronic condition which is uncontrolled with hyperglycemia, improving, but not at goal. Personally reviewed A1c- decreased to 10.7 States is now taking medication as prescribed. Not at goal less than 7%. poc glucose in 92. At goal of 80-180. Medication- Continue Victoza to 1.8mg daily, increase Humalog 75/25 to 45 units twice a day. continue Jardiance 25 mg daily. She reports she has been taking her insulin consistently. Monitor blood sugar 2x times a day. Encouraged annual eye exam. last dilated eye exam was at [facility] foot exam completed, loss of protective senses. Treated with Gabapentin. Does not feel this has helped. Urine microalbumin/creatinine ratio - <30 normal. currently HCTZ , At goal <30 Personally reviewed labs: BUN- 11, creatinine- 0.67 GFR- 98 Kidney function- normal B/P today- 122/82 , currently on losartan and HCTZ Goal blood pressure is <140/90. Personally reviewed LDL -156 on atorvastatin 40 mg daily. Not at Goal of less than 70. No history of macrovascular disease - [place]. Encouraged to take medications as prescribed. Assessment & Plan (02/12/2021 2:05 PM DISASTER RECOVERY ANALYST): This is a chronic condition which is uncontrolled with hyperglycemia, improving, but not at goal. Personally reviewed A1c today- decreased to 10.7 today from 11.5. States is now taking medication as prescribed. Not at goal less than 7% Medication- Continue Victoza to 1.8mg daily, increase Humalog 75/25 to 45 units twice a day. continue Jardiance 25 mg daily. She reports she has not been taking her insulin consistently. Monitor blood sugar 2x times a day. Encouraged annual eye exam. last dilated eye exam was at [facility] foot exam completed, loss of protective senses. Treated with Gabapentin. Does not feel this has helped. Urine microalbumin/creatinine ratio - <30 normal. currently HCTZ , At goal <30 Personally reviewed labs: (01/22) BUN- 11, creatinine- 0.67 GFR- 98 Kidney function- normal B/P today- 138/78 , currently on losartan and HCTZ Goal blood pressure is <140/90. Personally reviewed LDL -156 on atorvastatin 40 mg daily. Not at Goal of less than 70. No history of macrovascular disease - [place]. Encouraged to take medications as prescribed. Assessment & Plan (12/31/2020 2:04 PM CDT): This is a chronic condition which is uncontrolled with hyperglycemia, improving, but not at goal. Personally reviewed A1c today- 11.5 due to medication noncompliance. Not at goal less than 7% Medication- Continue Victoza to 1.8mg daily, increase Humalog 75/25 to 45 units twice a day. continue Jardiance 25 mg daily. She reports she has not been taking her insulin consistently. Monitor blood sugar 2x times a day. Encouraged annual eye exam. last dilated eye exam was at [facility] foot exam completed, loss of protective senses. Treated with Gabapentin. Does not feel this has helped. Urine microalbumin/creatinine ratio - <30 normal. currently HCTZ , At goal <30 Personally reviewed labs: (01/22) BUN- 11, creatinine- 0.67 GFR- 98 Kidney function- normal B/P today- 126/84 , currently on losartan and HCTZ Goal blood pressure is <140/90. Personally reviewed LDL -156 (09/23) changed Pravastatin (moderate intensity) to atorvastatin 40 mg daily (high intensity). Not at Goal of less than 70. No history of macrovascular disease - [place]. Encouraged to take medications as prescribed. Assessment & Plan (09/30/2020 2:03 PM CDT): This is a chronic condition which is uncontrolled with hyperglycemia, improving, but not at goal. Personally reviewed A1c today- down to 9.6 from 10.1- Not at goal less than 7% Medication- Continue Victoza to 1.8mg daily, Humalog 75/25 to 40 units twice a day. Increase Jardiance 25 mg daily. She reports she has not been taking her insulin consistently but, she is back on track now. Monitor blood sugar 2x times a day. Encouraged annual eye exam. last dilated eye exam was at [facility] foot exam completed, loss of protective senses. Treated with Gabapentin. Does not feel this has helped. Urine microalbumin/creatinine ratio - <30 normal. currently HCTZ , At goal <30 Personally reviewed labs: (01/22) BUN- 14, creatinine- 0.92 GFR- 70 Kidney function- normal B/P today- 126/86 , currently on losartan and HCTZ Goal blood pressure is <140/90. Personally reviewed LDL -156 (09/23) changed Pravastatin (moderate intensity) to atorvastatin 40 mg daily (high intensity). Not at Goal of less than 70. No history of macrovascular disease - [place]. Encouraged to take medications as prescribed. Assessment & Plan (06/28/2020 2:50 PM CDT): This is a chronic condition which is uncontrolled with hyperglycemia, improving, but not at goal. Personally reviewed A1c today- 10.1- down from 10.4 Not at goal less than 7% Medication- Continue Victoza to 1.8mg daily, Continue Humalog 75/25 to 40 units twice a day. She reports she has not been taking her insulin. She states she was doing good but then encountered some family problems and this caused her to get off track. Monitor blood sugar 2x times a day. Encouraged annual eye exam. last dilated eye exam was at [facility] foot exam completed, loss of protective senses. Treated with Gabapentin. Does not feel this has helped. Urine microalbumin/creatinine ratio - <30 normal. currently HCTZ , At goal <30 Personally reviewed labs: BUN- 14, creatinine- 0.92 GFR- 70 Kidney function- normal B/P today- 110/68 , currently on losartan and HCTZ Goal blood pressure is <140/90. Personally reviewed LDL -104 (01/08/20) currently on pravastatin 40 mg. Not at Goal of less than 70. Will repeat in 2020. No history of macrovascular disease - [place]. Assessment & Plan (03/25/2020 2:47 PM DISASTER RECOVERY ANALYST): This is a chronic condition which is uncontrolled with hyperglycemia, improving, but not at goal. Personally reviewed A1c today- 10.4- down from 11.1 Not at goal less than 7% Medication- stop jardiance due to vaginal yeast infections. We will resume if A1c decreases to a lower level. Increase Victoza to 1.8mg daily, Increase Humalog 75/25 to 40 units twice a day. She reports she is taking her medication as prescribed. She states her daughter fills her medicine and she is taking them. [facility] called to review medication list. Monitor blood sugar 2x times a day. Encouraged annual eye exam. last dilated eye exam was at [facility] foot exam completed, loss of protective senses. Treated with Gabapentin. Does not feel this has helped. Urine microalbumin/creatinine ratio - <30 normal. currently HCTZ , At goal <30 Personally reviewed labs: BUN- 14, creatinine- 0.92 GFR- 70 Kidney function- normal B/P today- 124/76 , currently on losartan and HCTZ Goal blood pressure is <140/90. Personally reviewed LDL -104 (01/08/20) currently on pravastatin 40 mg. Not at Goal of less than 70. Will repeat in 2020. No history of macrovascular disease - [place]. Assessment & Plan (01/23/2020 12:00 PM CDT): This is a chronic condition which is uncontrolled with hyperglycemia and worsening. Last A1c- 11.1 (10.5.20) from Dr. Len Ramsey's office Medication- Continue on Humalog 75/25 35 units twice a day STOP Januvia 100mg. Start Victoza 0.6mg injection daily for 2 weeks and then increase to 1.2mg daily. Jardiance 10 mg p.o. daily Diflucan 150 mg 1 tab today and repeat in 72 hrs for vaginal itching. She is a poor historian about her medications, but does say she takes her medications. Monitor blood sugar twice daily. New Verio glucometer was provided Call office if blood sugars is dropping below 80. Call office if your blood sugar is greater than 250 for 3 days. Surveillance of Diabetes complications last dilated eye exam is unknown. She has an appt for an eye exam on 01/29/20 Abnormal microfilament test- loss of protective sensation to feet. Gabapentin 300 mg at bedtime, she does not feel this has helped Urine microalbumin/creatinine ratio was not obtained because she was unable to void BP today- 130/78 currently on losartan 50 mg once daily, HCTZ 12.5mg daily LDL -104 on 01/08/2020, currently on pravastatin 40 mg p.o. daily No history of macrovascular disease - [place]. Assessment & Plan (09/22/2019 4:10 PM CDT): This is a chronic condition which is uncontrolled with hyperglycemia. She told me she was taken Jardiance 10 mg p.o. daily however this is not on the medication list. She is a poor historian about her medications, but does say she takes her pills. Her daughter does help her keep her medications straight. Labs reviewed from Dr. Ramsey's office from 02/02/2019 Medication- since she reports missing injections, she feels she can take 2 injections daily. Her insulin was switched to 70/30 35 units in the a.m. and p.m.. She was asked to call blood sugars in 1 week to evaluate the insulin dosage and we will adjust accordingly. Hopefully with the decrease in insulin injections this will improve her compliance. Monitor blood sugar twice daily Call office if blood sugars is dropping below 80. Call office if your blood sugar is greater than 250 for 3 days. Surveillance of Diabetes complications last dilated eye exam is unknown. She was encouraged to get a dilated eye exam Abnormal microfilament test- loss of protective sensation to feet. Gabapentin 300 mg at bedtime Urine microalbumin/creatinine ratio was not obtained because she was unable to void BP today- 124/84, currently on losartan 50 mg once daily LDL - 36 on 02/02/2019, currently on pravastatin 40 mg p.o. daily history of macrovascular disease - [place]. Resolved Problems Problem Noted Date Diagnosed Date Resolved Date Morbid (severe) obesity due to excess calories 12/16/2021 03/24/2022 Assessment & Plan (12/16/2021 10:13 AM CDT): This is a chronic condition which is worsening Encouraged healthy eating and exercise [facility] Acute pain of left shoulder 10/28/2020 12/16/2021 Dizziness 10/27/2020 12/16/2021 Altered mental status 10/27/20202021 Vaginal itching 01/23/2020 03/25/2020 Assessment & Plan (01/23/2020 12:01 PM CDT): Diflucan 150mg 1 tablet today and repeat 1 tablet in 72 hrs. This is related to high A1c level and is a common side effect of Jardiance in woman with diabetes, Instructed to notify PMD if symptoms are not relieved after Diflucan treatment. Hip pain, acute, right 09/29/201712/16 Fall 09/29/2017 12/16/2021 Morbid obesity (CMS/HCC) 09/29/2017 Right foot pain 09/29/2017 03/25/2020 Contusion of right hip 12/16 Social History Tobacco Use Types Packs/Day Years Used Date Smoking Tobacco: Every Day Cigarettes Smokeless Tobacco: Never Tobacco Cessation:Ready to Q uit: Not Asked; Counseling Given: Not Answered Alcohol Use Standard Drinks/Week Comments Not Currently 0 (1 standard drink = 0.6 oz pur e alcohol) socially AUDIT-C Answer Date Recorded Frequency of Alcohol Consumption Never 01/03/2019 Average Number of Drinks Not on file 019 Frequency of Binge Drinking Not on file 04/2018 PHQ-2 Answer Date Recorded PHQ-2 Total Score (If total score is 3 or more points, staff should administer the PHQ-9) 0 10/27/2020 Comments No Sex and Gender Information Value Date Recorded Sex Assigned at Not on file Legal Sex Female 10:31 AM DISASTER RECOVERY ANALYST Gender Identity Not on file Sexual Orientation Not on file Last Filed Vital Signs Vital Sign Reading Time Taken Comments Blood Pressure 116/72 04/03/2024 1:09 PM DISASTER RECOVERY ANALYST Pulse 84 10/29/2020 7:35 AM CDT Temperature 36.4 C (97.6 F) 10/29/2020 7:35 AM CDT Respiratory Rate 16 10/29/2020 7:35 AM CDT Oxygen Saturation 95% 10/29/2020 11: 50 AM CDT Inhaled Oxygen Concentration - - Weight 92.9 kg (204 lb 14.4 oz) 04/03/2024 1:09 PM DISASTER RECOVERY ANALYST Height 157.5 cm (5' 2) 04/03/2024 1:09 PM DISASTER RECOVERY ANALYST Body Mass Index 37.48 04/03/2024 1:09 PM DISASTER RECOVERY ANALYST Plan of Treatment Not on file Procedures Procedure Name Priority Date/Time Associated Diagnosis Comments POCT HEMOGLOBIN A1C Routine 04/03/2024 1:14 PM DISASTER RECOVERY ANALYST Type 2 diabetes mellitus with hyperglycemia, with long-term current use of insulin (HCC) EGFR Routine 12/13/2023 2:16 PM CDT Type 2 diabetes mellitus with hyperglycemia, without long-term current use of insulin (HCC) LIPID PANEL Routine 12/13/2023 2:16 PM CDT Type 2 diabetes mellitus with hyperglycemia, without long-term current use of insulin (HCC) ALBUMIN CREATININE RATIO, URINE Routine 12/13/2023 2:16 PM CDT Type 2 diabetes mellitus with hyperglycemia, without long-term current use of insulin (HCC) SCREENING MAMMOGRAM BILATERAL W RADHIKA Schedule Routine, Read Routine (OP Routine) 11/12/2021 8:23 AM CDT Encounter for screening mammogram for malignant neoplasm of breast DIABETIC EYE EXAM Routine 01/29/2020 from Last 3 Months or Most Recently Relevant to Health Maintenance Results * (ABNORMAL) POCT hemoglobin A1c (04/03/2024 1:14 PM DISASTER RECOVERY ANALYST) Hemoglobin A1C, POC 12.5 4.0 - 5.6 % Blood 04/03/2024 1:14 PM DISASTER RECOVERY ANALYST us Gill Drew NP POINT OF CARE TEST ORDERABLES F inal Result * eGFR (12/13/2023 2:16 PM CDT) eGFR >90 >=60 mL/min/1. 73 m2 Comment: Interpretive Data Reference Interval Normal >/= 90 mL/min/1.73m2 Mildly decreased* 60 - 89 mL/min/1.73m2 Mildly to moderately decreased 45 - 59 mL/min/1.73m2 Moderately to severely decreased 30 - 44 mL/min/1.73m2 Severely decreased 15 - 29 mL/min/1.73m2 Kidney Failure < 15 mL/min/1.73m2 *Relative to young adult level Estimated glomerular filtration rate is determined by the 2020 CKD-EPI equation recommended by the National Kidney Foundation (A Unifying Approach to GFR Estimation: Recommendations of the NKF-ASK Task Force on Reassessing the Inclusion of Race in Diagnosing Kidney Disease, JASN 2020). The CKD-EPI equation should not be used for patients with unstable renal function and has not been validated in children and those over 70. Current interpretive data was last reviewed 2021. Blood 12/13/2023 2:16 PM CDT 12/13/2023 5:58 PM CDT us Gill Drew NP LAB BLOOD ORDERABLES Final Resu lt [facility] [address] [place] [address] * Albumin Creatinine Ratio, Urine (12/13/2023 2:16 PM CDT) Albumin Ur <12.0 mg/L Comment: Interpretive Data No reference range established. Current interpretive data was last revised 2018. Creatinine Ur 40.5 mg/dL [facility] Comment: Interpretive Data No reference range established. Current interpretive data was last revised 2018. Albumin Creatinine Ratio, Ur See Comment 1 - 29 [facility]TO Comment:Unable to calculate Urine 12/13/2023 2:16 PM CDT 12/13/2023 5:54 PM CDT us Gill Drew NP LAB URINE ORDERABLES Final Resu lt [facility] [address] Department [place] [address] * (ABNORMAL) Lipid panel (12/13/2023 2:16 PM CDT) Cholesterol 227(H) 30 - 199 mg/dL Comment: Interpretive Data Ages < or = 19 years Acceptable: <170 mg/dL Borderline high: 170-199 mg/dL High: >or= 200 mg/dL Ages > or = 20 years Desirable: <200 mg/dL Borderline high: 200-239 mg/dL High: >or= 240 mg/dL Literature References: 1. Expert Panel on Integrated Guidelines for Cardiovascular Health and Risk Reduction in Children and Adolescents. Pediatrics 2011;128:S213 2. NCEP Expert Panel. Circulation 2004;110:227 Current Interpretive Data was last revised on 2017. Triglycerides 134 <=149 mg/dL [facility] Comment: Interpretive Data Ages < or = 9 years Acceptable: <75 mg/dL Borderline high: 75-99 mg/dL High: >or= 100 mg/dL Ages 10 to 20 years Acceptable: <90 mg/dL Borderline high: 90-129 mg/dL High: >or= 130 mg/dL Ages > or = 20 years Desirable: <150 mg/dL Borderline high: 150-199 mg/dL High: 200-499 mg/dL Very high: >or= 499 mg/dL Literature References: 1. Expert Panel on Integrated Guidelines for Cardiovascular Health and Risk Reduction in Children and Adolescents. Pediatrics 2011;128:S213 2. NCEP Expert Panel. Circulation 2004;110:227 Current Interpretive Data was last revised on 2017. HDL 48 >=40 mg/dL [facility] Comment: Interpretive Data Ages < or = 19 years Acceptable: >45 mg/dL Borderline low: 40-45 mg/dL Low: <40 mg/dL Ages > or = 20 years Desirable: >or= 60 mg/dL Low: <40 mg/dL Literature References: 1. Expert Panel on Integrated Guidelines for Cardiovascular Health and Risk Reduction in Children and Adolescents. Pediatrics 2011;128:S213 2. NCEP Expert Panel. Circulation 2004;110:227 Current Interpretive Data was last revised on 2017. LDL, calculated 155(H) <=129 mg/dL [facility] Comment: Interpretive Data Ages < or = 19 years Acceptable: <110 mg/dL Borderline high: 110-129 mg/dL High: >or= 130 mg/dL Ages > or = 20 years Optimal: <100 mg/dL Near optimal: 100-129 mg/dL Borderline high: 130-159 mg/dL High: >160 mg/dL Calculated using the Mohsen LDL-C estimating equation. This equation was implemented on 2023. Prior to this date LDL-C was estimated using the Friedewald equation. Literature References: 1. Expert Panel on Integrated Guidelines for Cardiovascular Health and Risk Reduction in Children and Adolescents. Pediatrics 2011;128:S213 2. NCEP Expert Panel. Circulation 2004;110:227 3. Mohsen Pelaez et al. FAB Cardiol. 2019August 03;5(5):540-548. doi: [email or web address] Current Interpretive Data was last revised on 2023. Non-HDL Cholesterol 179 mg/dL [facility] Comment: Interpretive Data Ages < or = 19 years Acceptable: <120 mg/dL Borderline high: 120-144 mg/dL High: >145 mg/dL Ages > or = 20 years When triglycerides are >200 mg/dL, Non-HDL cholesterol is a secondary target of therapy with treatment goals that are 30 mg/dL greater than the LDL cholesterol target. Literature References: 1. Expert Panel on Integrated Guidelines for Cardiovascular Health and Risk Reduction in Children and Adolescents. Pediatrics 2011;128:S213 2. NCEP Expert Panel. Circulation 2004;110:227 Current Interpretive Data was last revised on 2017. Chol/HDL ratio 5 [facility] Blood 12/13/2023 2:16 PM CDT 12/13/2023 5:54 PM CDT Narrative NAND[facility] - 12/13/2023 6:16 PM CDT These lab test should be done fasting. This means do not eat or drink for at least 12 hours prior to getting your blood drawn. us Gill Drew MINK SLICER LAB [place] [address] [address] [place] [address] * Screening Mammogram Bilateral W Radhika (11/12/2021 8:23 AM CDT) Anatomical Region Laterality Modality Breast Bilateral Mammography 11/12/2021 12:1 0 PM CDT Impressions 11/12/2021 12:10 PM CDT There is no mammographic evidence of malignancy. A 1 year screening mammogram is recommended. BI-RADS: 1 - Negative. The patient has been or will be contacted. The patient will be entered into a reminder system with a target due date of 1 year for her next mammogram. Electronically signed by: Edgar Yang M.D. Narrative 11/12/2021 12:10 PM CDT EXAMINATION: SCREENING MAMMOGRAM BILATERAL W RADHIKA ORDERING HEALTHCARE PROVIDER: LEN RAMSEY HISTORY: Routine screening mammography. COMPARISON: None available. TECHNIQUE: CC and MLO views of the bilateral breasts were obtained with digital technique using breast tomosynthesis with C view. Computer aided detection was utilized. FINDINGS: DENSITY: There are scattered fibroglandular elements in the bilateral breasts. BREASTS: There are no suspicious masses, suspicious calcifications, or other suspicious findings in either breast. There has been no suspicious interval change. Len Ramsey MD IMG MAMMO PROCEDURES Final Re sult * Diabetic Eye Exam (01/29/2020) Historical Provider HEALTH MAINTENANCE Final Result from Last 3 Months or Most Recently Relevant to Health Maintenance Insurance [facility] Advance Directives For more information, please contact: [phone] * Full Code (Latest Code Status on File) Date Activated Date Inactivated Comments 10/27/2020 6:21 PM 10/29/2020 6:48 PM * Full Code Date Activated Date Inactivated Comments 09/28/2017 11:10 PM 10/01/2017 6:31 PM Care Teams Tuber Helper Relationship Specialty Start Date End Date Len Ramsey MD [address] [place] [address] PCP - General 12/27/18 Gill Drew, MINK SLICER [address] [place] [place] [address] Nurse Practitioner Endocrinology Diabetes & Metabolism 02/05/20
--- OUTSIDE RECORDS SUMMARY | 2024-08-31 18:23 | XMS_ITS | Encounter Summary ---
Author Organization [facility] Address [address] [place] [id number] Care Team Providers Care Landscape Contractor Name Role Phone Joan Myers MD Primary Care Provider [phone] Gill Drew HEAT TREATING BLUER Unavailable [phone] Encounter Details Date Type Department Care Team (Late st Contact Info) Description 02/17/2021 Orders Only [facility] [address] [place] [address] Joan Myers MD [address] [place] [address] Social History Tobacco Use Types Packs/Day Years Used Date Smoking Tobacco: Every Day Cigarettes Smokeless Tobacco: Never Alcohol Use Standard Drinks/Week Comments Not Currently [...] on file Legal Sex 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
--- OUTSIDE RECORDS SUMMARY | 2024-08-31 18:23 | XMS_ITS | Clinical Summary ---
Author Organization [facility] Address [address] [place] [id number] Care Team Providers Care Glove Stitcher Name Role Phone Len Ramsey MD Primary Care Provider [phone] Gill Drew SHINGLE PACKER Unavailable [phone] Allergies Active Allergy Reactions Criticality Noted [...] comments) Low 07/16/2016 Pt does not know [place] Hives Medium 02/28/2016 Medications cetirizine (ZyrTEC) 10 [...] 12/16/2021 Assessment & Plan (04/03/2024 3:20 PM FINANCE SPECIALIST): This is a chronic condition which continues [...] week Assessment & Plan (04/21/2023 2:20 PM FINANCE SPECIALIST): This is a chronic condition which continues to improve 2 lb weight loss since last office visit Encouraged healthy eating, small portion sizes and exercise Discussed eating vegetables such as tomatoes, lettuce, pickles Assessment & Plan (01/19/2023 2:41 PM CDT): This is a chronic condition which continues 10 lb weight loss since last office visit due to [id number] diabetes Encouraged to take medications eat healthy and exercise Assessment & Plan (06/23/2022 11:06 AM CDT): This is a chronic condition which is improving with 10lb weight loss since last office visit. Encouraged healthy eating and exercise Continue Victoza to promote weight loss Assessment & Plan (03/24/2022 7:46 AM FINANCE SPECIALIST): This is a chronic condition which is worsening Encouraged healthy eating and exercise Continue Victoza to promote weight loss Assessment & Plan (12/16/2021 10:12 AM CDT): This is a chronic condition which is worsening Encouraged healthy eating and exercise Continue Victoza to promote weight loss Hyperlipidemia associated with type 2 diabetes kaitlin padgett 09/30/2020 Assessment & Plan (04/03/2024 3:21 PM FINANCE SPECIALIST): This is a chronic condition which is [...] week. Assessment & Plan (04/21/2023 2:19 PM FINANCE SPECIALIST): This is a chronic condition which is [...] prescribed. Assessment & Plan (03/24/2022 7:45 AM FINANCE SPECIALIST): This is a chronic condition which is [...] prescribed. Assessment & Plan (06/13/2021 1:54 PM FINANCE SPECIALIST): This is a chronic condition which is worsening and not at goal. Goal is less than 70. Personally reviewed lipid panel. LDL -156 on atorvastatin 40 mg daily (high intensity). Encouraged to eat healthy, include fresh fruits and vegetables daily and avoid eating fried foods more than once per week. Please take medications as prescribed. Assessment & Plan (03/31/2021 2:15 PM FINANCE SPECIALIST): This is a chronic condition which is worsening and not at goal. Goal is less than 70. Personally reviewed lipid panel. LDL -156 on atorvastatin 40 mg daily (high intensity). Encouraged to eat healthy, include fresh fruits and vegetables daily and avoid eating fried foods more than once per week. Please take medications as prescribed. Assessment & Plan (02/12/2021 1:52 PM FINANCE SPECIALIST): This is a chronic condition which is [...] 06/28/2020 Assessment & Plan (04/03/2024 3:21 PM FINANCE SPECIALIST): This is a chronic condition which is [...] B/P Assessment & Plan (04/21/2023 2:19 PM FINANCE SPECIALIST): This is a chronic condition which is [...] prescribed. Assessment & Plan (03/24/2022 7:46 AM FINANCE SPECIALIST): This is a chronic condition which is [...] insulin Assessment & Plan (04/03/2024 3:20 PM FINANCE SPECIALIST): This is a chronic condition which is [...] losartan Assessment & Plan (04/21/2023 2:19 PM FINANCE SPECIALIST): This is a chronic condition which is [...] exam. last dilated eye exam was at [facility] foot exam completed, loss of [...] No history of macrovascular disease - [place]. Encouraged to take medications as prescribed. Labs per care everywhere- transcribed into [facility]. Assessment & Plan (03/24/2022 7:45 AM FINANCE SPECIALIST): This is a chronic condition which is [...] exam. last dilated eye exam was at [facility] foot exam completed, loss of [...] No history of macrovascular disease - [place]. Encouraged to take medications as prescribed. Labs per care everywhere- transcribed into [facility]. Assessment & Plan (12/16/2021 10:16 AM CDT): [...] exam. last dilated eye exam was at [facility] foot exam completed, loss of [...] No history of macrovascular disease - [place]. Encouraged to take medications as prescribed. Labs per care everywhere- transcribed into [facility]. Assessment & Plan (09/15/2021 2:32 PM CDT): [...] exam. last dilated eye exam was at [facility] foot exam completed, loss of [...] No history of macrovascular disease - [place]. Encouraged to take medications as prescribed. Labs per care everywhere- transcribed into [facility]. Assessment & Plan (06/13/2021 2:08 PM FINANCE SPECIALIST): This is a chronic condition which is [...] exam. last dilated eye exam was at [facility] foot exam completed, loss of [...] No history of macrovascular disease - [place]. Encouraged to take medications as prescribed. Assessment & Plan (03/31/2021 2:12 PM FINANCE SPECIALIST): This is a chronic condition which is [...] exam. last dilated eye exam was at [facility] foot exam completed, loss of [...] No history of macrovascular disease - [place]. Encouraged to take medications as prescribed. Assessment & Plan (02/12/2021 2:05 PM FINANCE SPECIALIST): This is a chronic condition which is [...] exam. last dilated eye exam was at [facility] foot exam completed, loss of [...] No history of macrovascular disease - [place]. Encouraged to take medications as prescribed. Assessment [...] exam. last dilated eye exam was at [facility] foot exam completed, loss of [...] No history of macrovascular disease - [place]. Encouraged to take medications as prescribed. Assessment [...] exam. last dilated eye exam was at [facility] foot exam completed, loss of [...] No history of macrovascular disease - [place]. Encouraged to take medications as prescribed. Assessment [...] exam. last dilated eye exam was at [facility] foot exam completed, loss of [...] No history of macrovascular disease - [place]. Assessment & Plan (03/25/2020 2:47 PM FINANCE SPECIALIST): This is a chronic condition which is [...] her medicine and she is taking them. [facility] called to review medication list. Monitor blood sugar 2x times a day. Encouraged annual eye exam. last dilated eye exam was at [facility] foot exam completed, loss of [...] No history of macrovascular disease - [place]. Assessment & Plan (01/23/2020 12:00 PM CDT): [...] No history of macrovascular disease - [place]. Assessment & Plan (09/22/2019 4:10 PM CDT): [...] daily history of macrovascular disease - [place]. Resolved Problems Problem Noted Date Diagnosed Date Resolved Date Morbid (severe) obesity due to excess calories 12/16/2021 03/24/2022 Assessment & Plan (12/16/2021 10:13 AM CDT): This is a chronic condition which is worsening Encouraged healthy eating and exercise Continue Victoza to promote weight loss Acute pain of [...] 09/29/2017 03/25/2020 Contusion of right hip 12/16 Surgical History Surgery Date Site/Laterality Comments TUBAL LIGATION Bilateral tubal ligation CARPAL TUNNEL RELEASE Carpal tunnel release Medical History Medical History Date Comments Arthritis Asthma Diabetes mellitus (HCC) Hypertension Hypothyroidism Depression Anxiety Social anxiety disorder Migraine Vaginal itching 01/23/2020 Right foot pain 09/29/2017 Altered mental status 10/27/2020 Contusion of right hip Dizziness 10/27/2020 Fall 09/29/2017 Hip pain, acute, right 09/29/2017 Acute pain of left shoulder 10/28/2020 Family History Medical History Relation Name Comments Lung cancer Maternal Grandfather Cancer, lung; Breast cancer Maternal Grandmother Cancer , breast; Diabetes Mother Diabetes mellit us; Hypertension Mother Hypertension; Seizures Mother Seizure disorde r; Arthritis Other 1 Family history of arthritis; Mental illness Other 2 Family histor y of Mental illness; Relation Name Status Comments Maternal Grandfather Maternal Grandmother Mother Other 1 Other 2 Social History Tobacco Use Types Packs/Day Years [...] on file Legal Sex Female 10:31 AM FINANCE SPECIALIST Gender Identity Not on file Sexual Orientation Not on file Obstetrics History Para Term AB IAB SAB Ectopic Multiple Livin g Live Births 3 3 3 Date Outcome GA Total Labor Labor/2nd/3rd Weight Sex Type Anes PTL Abiola A1 A5 Name Clin Term Term Term Last Filed Vital Signs Vital Sign Reading Time Taken Comments Blood Pressure 116/72 04/03/2024 1:09 PM FINANCE SPECIALIST Pulse 84 10/29/2020 7:35 AM CDT Temperature 36.4 C (97.6 F) 10/29/2020 7:35 AM CDT Respiratory Rate 16 10/29/2020 7:35 AM CDT Oxygen Saturation 95% 10/29/2020 11: 50 AM CDT Inhaled Oxygen Concentration - - Weight 92.9 kg (204 lb 14.4 oz) 04/03/2024 1:09 PM FINANCE SPECIALIST Height 157.5 cm (5' 2) 04/03/2024 1:09 PM FINANCE SPECIALIST Body Mass Index 37.48 04/03/2024 1:09 PM FINANCE SPECIALIST Plan of Treatment Health Maintenance Due Date Last Done Comments Cervical Cancer Screening 1965 Colon Cancer Screening-Colonoscopy 1965 Hepatitis C Screening 1965 Hepatitis B Screening 01/20/1982 Regular Well Visit/Exam 18-64 01/20/1982 Zoster Vaccine (1 of 2) 01/20/2014 Pneumococcal vaccine <65 (2 of 2 - PCV) 03/24/2018 03/24/2017 Depression Screening 10/27/2021 10/27/2020 Dilated Eye Exam 01/28/2022 01/29/2020 Breast Cancer Screening-Mammogram 11/12/2022 022 Hemoglobin A1C 10/02/2024 04/03/2024, 09/0 12/2023, 04/21/2023, Additional history exists Influenza Vaccine (Season Ended) 2024 Albumin Creatinine Ratio, Urine 12/12/2024 , 06/23/2022 Lipid Panel 12/12/2024 12/13/2023, 06/04, 07/15/2021, Additional history exists eGFR 12/12/2024 12/13/2023, 080 07/2022, 11/06/2022, Additional history exists Foot Exam 04/03/2025 04/03/2024, 0 12/2023, 04/21/2023, Additional history exists DTaP/Tdap/Td Vaccine (2 - Td or Tdap) 04/05/2025 04/05/2015 Procedures Procedure Name Priority Date/Time Associated Diagnosis Comments POCT HEMOGLOBIN A1C Routine 04/03/2024 1:14 PM FINANCE SPECIALIST Type 2 diabetes mellitus with hyperglycemia, with [...] of insulin (HCC) SCREENING MAMMOGRAM BILATERAL W RADHIAK Schedule Routine, Read Routine (OP Routine) 11/12/2021 8:23 AM CDT Encounter for screening mammogram for malignant neoplasm of breast DIABETIC EYE EXAM Routine 01/29/2020 from Last 3 Months or Most Recently Relevant to Health Maintenance Results * (ABNORMAL) POCT hemoglobin A1c (04/03/2024 1:14 PM FINANCE SPECIALIST) Hemoglobin A1C, POC 12.5 4.0 - 5.6 % Blood 04/03/2024 1:14 PM FINANCE SPECIALIST Gill Drew NP POINT OF CARE TEST [...] 2:16 PM CDT 12/13/2023 5:58 PM CDT Gill Drew NP LAB BLOOD ORDERABLES Final Resu lt [facility] [id number] Department [place] [address] * Albumin Creatinine Ratio, Urine [...] 12/13/2023 5:54 PM CDT us Gill Drew SHINGLE PACKER LAB URINE ORDERABLES Final Resu lt [facility] [id number] Department [place] [address] * (ABNORMAL) Lipid panel (12/13/2023 2:16 PM [...] revised on 2017. Chol/HDL ratio 5 [facility] Blood 12/13/2023 2:16 PM CDT 12/13/2023 5:54 PM CDT Narrative [facility] - 12/13/2023 6:16 PM CDT These lab test should be done fasting. This means do not eat or drink for at least 12 hours prior to getting your blood drawn. Gill Drew NP LAB BLOOD ORDERABLES Final Resu lt [facility] [address] Department [place] [address] * Screening Mammogram Bilateral W Radhika (11/12/2021 [...] Most Recently Relevant to Health Maintenance Insurance [facility] Advance Directives For more information, please contact: [phone] * Full Code (Latest Code Status on File) Date Activated Date Inactivated Comments 10/27/2020 6:21 PM 10/29/2020 6:48 PM * Full Code Date Activated Date Inactivated Comments 09/28/2017 11:10 PM 10/01/2017 6:31 PM Care Teams Glove Stitcher Relationship Specialty Start Date End Date Len Ramsey MD [address] [place] [address] PCP - General 12/27/18 Gill Drew, ALBA [address] [place] [address] Nurse Practitioner Endocrinology Diabetes & Metabolism 02/05/20
--- OUTSIDE RECORDS SUMMARY | 2024-08-31 18:23 | XMS_ITS | Encounter Summary ---
Author Organization [facility] Address [address] [address] Phone Care Team Providers Care Tie Worker Name Role Phone Beverly Gibson Primary Care Provider [phone] Joan Myers MD Primary Care Provider [phone] Reason for Visit * Reason Comments Medication Refill Encounter Details Date Type Department Care Team (Late st Contact Info) Description 10/06/2019 Refill [facility] - Endocrinology - [place] [place] [phone] Alan Lundberg MD [address] [address] Medication Refill Social History Tobacco Use Types Packs/Day Years Used Date Smoking Tobacco: Every Day Cigarettes 0.5 30 Smokeless Tobacco: Never Alcohol Use Standard Drinks/Week Comments No 0 (1 standard drink = 0.6 oz pur e alcohol) Sexually Active Control Partners Comments Yes Male Comments No Sex and Gender Information Value Date Recorded Sex Assigned at Not on file Legal Sex Female 10:24 PM CDT Gender Identity Not on file Sexual Orientation Not on file documented as of this encounter Miscellaneous Notes * Telephone Encounter - Adele Greco CMA - 10/09/2019 3:11 PM CDT Patient has Fajardo and is getting this from a different provider. documented in this encounter Plan of Treatment Not on file documented as of this encounter Visit Diagnoses Not on filedocumented in this encounter Care Teams Tie Worker Relationship Specialty Start Date End Date Beverly Gibson PA [address] [place] [address] PCP - General Adult Medicine 12/07/17 05/18/20 Joan Myers MD [address] [place], [place] [id number] PCP - General Internal Medicine 05/19/20 documented as of this encounter
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
--- NOTE | 2024-08-31 18:29 | ECG_ITS ---
Test Date: 2024-08-31 18:32:05 Measurements Intervals [place] Rate: 76 P: 16 SD: 168 QRS: -48 QRSD: 78 T: 30 QT: 361 QTc: 407 Interpretive Statements SINUS RHYTHM WITH OCCASIONAL SUPRAVENTRICULAR PREMATURE COMPLEXES LOW QRS VOLTAGE IN PRECORDIAL LEADS [QRS DEFLECTION < 1.0 mV IN CHEST LEADS] LEFT ANTERIOR FASCICULAR BLOCK [QRS AXIS <= -45, QR IN I, RS IN II] MINIMAL VOLTAGE CRITERIA FOR LVH, CONSIDER NORMAL VARIANT [MEETS CRITERIA IN ONE OF: R(aVL), S(V1), R(V5), R(V5/V6)+S(V1)] WARNING: DATA QUALITY MAY AFFECT INTERPRETATION No previous ECG available for comparison Electronically Signed On 09-01-2024 15:02:30 CDT by Melvin Wolf M.D.
--- NOTE | 2024-08-31 18:40 | ED.CHESTPAIN ---
HPI - Chest Pain General Chief Complaint: Chest Pain Stated Complaint: headache/chest pain Time Seen by Provider: 08/31/24 18:41 Source: patient Mode of arrival: ambulatory Limitations: no limitations History of Present Illness HPI narrative: 59-year-old female presented for complaint of a headache and chest pain and heart racing. Endorses intermittent chest pain and heart racing since 08/20, which was the anniversary of her son's murder. Pt rates headache 01/12, took aspirin today. Head pain is in the front and base of skull. Endorses face feels tingling at times. Pt quit smoking 08/03. Denies n/v/d/f/c. Related Data Home Medications ?Medication ?Instructions ?Recorded ?Confirmed ?Last Taken ?Type cholecalciferol (vitamin D3) 25 1,000 unit PO DAILY 08/20/19 08/18/23 Unknown History mcg (1,000 unit) tablet (Vitamin D3) pen needle, diabetic 32 gauge x 11/26/19 08/18/23 Unknown History (Unifine Pentips) empagliflozin 10 mg tablet 10 mg PO DAILY 01/08/20 08/18/23 Unknown History (Jardiance) albuterol sulfate 2.5 mg/3 mL 2.5 mg inhalation Q4-6H 03/12/20 08/18/23 Unknown History (0.083 %) solution for nebulization gabapentin 300 mg capsule 300 mg PO DAILY 03/12/20 08/18/23 Unknown History albuterol sulfate 90 mcg/actuation 90 mcg inhalation PRN PRN 08/09/20 08/18/23 Unknown History aerosol inhaler (Ventolin HFA) Shortness Of Breath Or Wheezing insulin lispro protamine-lispro 35 unit subcut BID 06/08/23 08/18/23 Unknown History 100 unit/mL (75-25) subcutaneous pen aripiprazole 10 mg tablet 10 mg PO DAILY 08/18/23 08/18/23 Unknown History ciprofloxacin HCl 0.3 % eye drops See Rx Instructions .Route .COMPLEX 08/18/23 08/18/23 Unknown History escitalopram oxalate 10 mg tablet 10 mg PO DAILY 08/18/23 08/18/23 Unknown History atorvastatin 40 mg tablet mg 08/31/24 Unknown History cetirizine 10 mg tablet mg 08/31/24 Unknown History cyclobenzaprine 10 mg tablet mg 08/31/24 Unknown History diclofenac sodium 50 mg mg PO 08/31/24 Unknown History tablet,delayed release glimepiride 4 mg tablet mg 08/31/24 Unknown History insulin degludec 100 subcut 08/31/24 Unknown History unit-liraglutide 3.6 mg/mL(3 mL) subcutaneous pen (Xultophy 100/3.6) lidocaine 5 % topical patch patch 08/31/24 Unknown History umeclidinium 62.5 mcg/actuation inhalation 08/31/24 Unknown History blister powder for inhalation (Incruse Ellipta) Allergies Allergy/AdvReac Type Severity Reaction Status Date / Time cephalexin Allergy Intermediate Swelling Verified 08/31/24 18:46 ciprofloxacin Allergy Intermediate Swelling Verified 08/31/24 18:46 egg Allergy Unknown Unknown Verified 08/31/24 18:46 sulfamethoxazole Allergy Unknown Rash Verified 08/31/24 18:46 trimethoprim Allergy Unknown Rash Verified 08/31/24 18:46 peanut Allergy Rash Verified 08/31/24 18:46 Review of Systems Review of Systems: per HPI All systems reviewed & are unremarkable except as noted in HPI and below PMFSH Past Medical History Medical History Anxiety Arthritis Asthma Depression Diabetes History of gastroesophageal reflux (GERD) Hx of migraines Hypercholesteremia Hypertension Neck pain Post traumatic stress disorder (PTSD) Surgical History Surgical History History of carpal tunnel surgery bilateral Hx of tubal ligation Family History Family History Father , COPD Smoker in home Mother Diabetes mellitus Grandparent Ovarian cancer Social History Social History Smoking packs per day: 0.5 Smoking cigarettes per day: 10.0 Years smoked: 50 Smoking pack-years: 25.00 Smoking status: Current every day smoker Tobacco type: cigarettes Second hand tobacco smoke exposure: No Alcohol intake: never Substance use: never Living arrangements: with family Occupation/Education: unemployed Gender identity (if verbalized by the patient): Female Comments At time of signature, I have reviewed and agree with nursing past medical, surgical, social and family history unless otherwise noted. Please see nursing chart for further information. There is no relevant family history pertinent to the presenting complaint Exam Narrative: GENERAL: mildly ill-appearing; sitting in dark room and guarding head EYES: EOMI. No redness or drainage. Conjunctivae normal. ENT: Mucous membranes pink and moist. NECK: Normal AROM. CHEST: No respiratory distress. Clear to auscultation. HEART: Regular rate and rhythm. No murmur appreciated. Normal peripheral pulses. EXTREMITIES: Normal range of motion. No edema. SKIN: Warm, dry, no rash. Capillary refill normal. Normal skin turgor. NEURO: No focal deficits. Alert and oriented x3. Gait steady. PSYCH: Normal affect. Appears anxious. Course Course Emergency Course: Patient is aware of diagnosis, understands and agrees to treatment plan. Anticipatory guidance given. Patient agrees to follow-up as directed and is aware of reasons to seek care at the emergency department. Portions of this record may have been created with voice recognition software Level of Care: Express Care Visit MDM - Chest Pain MDM Narrative Medical decision making narrative: Reviewed EKG with pt. patient presented with complaint of a headache 01/12, she declines Tylenol. States she wants to take aspirin when she leaves. Patient says she is agreeable to attempt to go to the ER at this time for chest pain and heart racing. Requests [facility]. Differential Diagnosis Differential diagnosis: Likely pneumothorax, stable angina, unstable angina pectoris, atypical chest pain, costochondritis, chest pain and biliary colic ECG Data EKG #1: Attestation: I personally reviewed and interpreted this ECG as follows: (NSR with PAC Rate 76, [place] 168, QRS 78, QT/ QTC 361/392) ECG completion date: 08/31/24 ECG completion time: 18:32 Prior ECG tracings: not available for review EKG Interpretation: normal rate and sinus rhythm Discharge Plan Discharge Clinical Impression: Chest pain, Headache Patient Disposition: Acute Care Hospital Condition: Stable Patient Language: Japanese Prescriptions: No Action Jardiance 10 mg Tablet 10 mg PO DAILY albuterol sulfate 2.5 mg /3 mL (0.083 %) solution for nebulization 2.5 mg inhalation Q4-6H gabapentin 300 mg capsule 300 mg PO DAILY albuterol sulfate [Ventolin HFA] 90 mcg/actuation HFA aerosol inhaler 90 mcg INHALATION PRN PRN (Reason: Shortness Of Breath Or Wheezing) insulin lispro protamin-lispro 100 unit/mL (75-25) insulin pen 35 unit SUBCUT BID cyclobenzaprine 10 mg tablet atorvastatin 40 mg tablet cetirizine 10 mg tablet glimepiride 4 mg tablet lidocaine 5 % adhesive patch,medicated diclofenac sodium 50 mg tablet,delayed release (DR/EC) PO Incruse Ellipta 62.5 mcg/actuation blister with device INHALATION Xultophy 100/3.6 100 unit-3.6 mg /mL (3 mL) insulin pen SUBCUT cholecalciferol (vitamin D3) [Vitamin D3] 25 mcg (1,000 unit) tablet 1,000 unit PO DAILY (DME) pen needle, diabetic [Unifine Pentips] 32 gauge x 5/32 Needle MISCELLANEOUS escitalopram oxalate 10 mg tablet 10 mg PO DAILY ciprofloxacin HCl 0.3 % drops See Rx Instructions .ROUTE .COMPLEX Rx Instructions: DIRECTED aripiprazole 10 mg tablet 10 mg PO DAILY [id number]-[id number]-SC 3.5-10,000-1 mg/mL-unit/mL-% drops,suspension 4 drp LEFT EAR TID 10 Days Qty: 10 0RF ibuprofen 800 mg tablet 800 mg PO TID PRN (Reason: pain) Qty: 15 0RF Follow-up/Referrals: Isabella Hobson RN [Primary Care Provider] - Time of Disposition: 18:57
[2024-08-31 18:47] VITALS: BP 152/72; PULSE 84; RESP 16; TEMP 36.6; O2SAT 98
== END 2024-08-31 19:04 | disposition short-term general hospital (02) ==
PROVIDERS: Emergency Provider Nurse Practitioner Family; PCP Nurse Practitioner Family
DX: R07.9 Chest pain, unspecified (principal); R51.9 Headache, unspecified; M19.90 Unspecified osteoarthritis, unspecified site; J45.909 Unspecified asthma, uncomplicated; E11.9 Type 2 diabetes mellitus without complications; Z79.4 Long term (current) use of insulin; K21.9 Gastro-esophageal reflux disease without esophagitis; E78.00 Pure hypercholesterolemia, unspecified; I10 Essential (primary) hypertension; F41.9 Anxiety disorder, unspecified; F32.A Depression, unspecified; Z87.891 Personal history of nicotine dependence
CPT/HCPCS: 93005; 99213; G0463

== ENCOUNTER 2024-12-14 09:35 | Emergency (ER) | payer OTHER, SELFPAY ==
[2024-12-14 09:44] VITALS: BP 154/85; PULSE 82; RESP 16; TEMP 36.6; O2SAT 98
--- NOTE | 2024-12-14 09:51 | ED.EAR ---
HPI - Ear Problem General Chief complaint: Ear Stated complaint: Ear pain Time Seen by Provider: 12/14/24 09:52 Source: patient, RN notes reviewed and old records reviewed Mode of arrival: ambulatory Limitations: no limitations History of Present Illness HPI Narrative: 59-year-old female presents to the [facility] with a 2 day history of left ear pain. Reports that it feels like things are draining, swollen. Did take 1 ibuprofen today. History of otitis externus. Patient is diabetic. Per her glucose monitor her current blood sugar 162 Related Data Home Medications ?Medication ?Instructions ?Recorded ?Confirmed ?Last Taken ?Type cholecalciferol (vitamin D3) 25 1,000 unit PO DAILY 08/20/19 08/18/23 Unknown History mcg (1,000 unit) tablet (Vitamin D3) pen needle, diabetic 32 gauge x 11/26/19 08/18/23 Unknown History (Unifine Pentips) empagliflozin 10 mg tablet 10 mg PO DAILY 01/08/20 08/18/23 Unknown History (Jardiance) albuterol sulfate 2.5 mg/3 mL 2.5 mg inhalation Q4-6H 03/12/20 08/18/23 Unknown History (0.083 %) solution for nebulization gabapentin 300 mg capsule 300 mg PO DAILY 03/12/20 08/18/23 Unknown History albuterol sulfate 90 mcg/actuation 90 mcg inhalation PRN PRN 08/09/20 08/18/23 Unknown History aerosol inhaler (Ventolin HFA) Shortness Of Breath Or Wheezing insulin lispro protamine-lispro 35 unit subcut BID 06/08/23 08/18/23 Unknown History 100 unit/mL (75-25) subcutaneous pen aripiprazole 10 mg tablet 10 mg PO DAILY 08/18/23 08/18/23 Unknown History escitalopram oxalate 10 mg tablet 10 mg PO DAILY 08/18/23 08/18/23 Unknown History atorvastatin 40 mg tablet mg 08/31/24 Unknown History cetirizine 10 mg tablet mg 08/31/24 Unknown History diclofenac sodium 50 mg mg PO 08/31/24 Unknown History tablet,delayed release glimepiride 4 mg tablet mg 08/31/24 Unknown History insulin degludec 100 subcut 08/31/24 Unknown History unit-liraglutide 3.6 mg/mL(3 mL) subcutaneous pen (Xultophy 100/3.6) lidocaine 5 % topical patch patch 08/31/24 Unknown History umeclidinium 62.5 mcg/actuation inhalation 08/31/24 Unknown History blister powder for inhalation (Incruse Ellipta) Allergies Allergy/AdvReac Type Severity Reaction Status Date / Time cephalexin Allergy Intermediate Swelling Verified 08/31/24 18:46 ciprofloxacin Allergy Intermediate Swelling Verified 08/31/24 18:46 egg Allergy Unknown Unknown Verified 08/31/24 18:46 sulfamethoxazole Allergy Unknown Rash Verified 08/31/24 18:46 trimethoprim Allergy Unknown Rash Verified 08/31/24 18:46 peanut Allergy Rash Verified 08/31/24 18:46 Review of Systems Review of Systems: All systems reviewed & are unremarkable except as noted in HPI and below Constitutional: Constitutional: Reports no additional constitutional complaints ENT: Reports as per HPI Cardiovascular: Cardiovascular: Reports no additional cardiovascular complaints, Denies chest pain and Denies dyspnea Respiratory: Respiratory: Reports no additional respiratory complaints, Denies chest congestion, Denies cough and Denies dyspnea Musculoskeletal: Musculoskeletal: Reports no additional musculoskeletal complaints Integumentary/Breasts: Skin/Breast: Reports system reviewed and no additional complaints, except as docu PMFSH Past Medical History Medical History Anxiety Arthritis Asthma Hx of migraines Neck pain Depression Hypercholesteremia History of gastroesophageal reflux (GERD) Post traumatic stress disorder (PTSD) Hypertension Diabetes Surgical History Surgical History Hx of tubal ligation History of carpal tunnel surgery bilateral Family History Family History Father , COPD Smoker in home Mother Diabetes mellitus Grandparent Ovarian cancer Social History Social History Smoking packs per day: 0.5 Smoking cigarettes per day: 10.0 Years smoked: 50 Smoking pack-years: 25.00 Smoking status: Current every day smoker Tobacco type: cigarettes Second hand tobacco smoke exposure: No Alcohol intake: never Substance use: never Living arrangements: with family Occupation/Education: unemployed Gender identity (if verbalized by the patient): Female Comments At the time of my signature, I reviewed and agree with the nursing past medical, surgical, social, and family history. There is no relevant family history pertinent to the patient complaint. Exam Const: General: cooperative, healthy appearing, comfortable, no acute distress, well developed, alert and well nourished Nutritional Appearance: well nourished and obese Orientation/consciousness: patient oriented x3 Limitations: no limitations HENMT: Head: normal to inspection Ears: external ears normal, TM's normal bilaterally, mastoids normal, no periauricular adenopathy and Abnormal EAC present erythema on the left, edema on the left and EAC tenderness on the left; no foreign body and no otic discharge Face/Nose/Sinus: Normal external nose present and No nasal discharge present Mouth: Yes Normal oral and palatal mucosa present, Yes lip normal, Yes tongue normal and Yes moist mucous membranes Eyes: General: appearance normal, both eyes and all related structures Alignment and Position: alignment normal Neck: Neck: normal visual inspection, full ROM, no lymphadenopathy and no meningeal signs Chest: Chest palpation & inspection: normal inspection of the chest Resp: Effort & Inspection: normal respiratory effort and able to speak in complete sentences Cardio: Rate: regular rate Skin: General skin exam: normal color and no rashes or lesions noted Neuro: General: patient oriented x3, gait normal, moves all extremities and no meningeal signs Cognition (Neuro): normal cognition Speech: normal speech Gait exam (Neuro): Normal gait present Extrem: General: normal to inspection, full ROM, capillary refill normal and normal gait Psych: Appearance: grossly normal and well kempt Mental Status: mental status grossly normal Speech and movement: Normal speech and movement present and Clear speech present Affect: normal affect Attitude: cooperative Course Course Level of Care: Express Care Visit Vital Signs Vital signs: Vital Signs Temperature 98 F 12/14/24 09:44 Pulse Rate 82 12/14/24 09:44 Respiratory Rate 16 12/14/24 09:44 Blood Pressure 154/85 H 12/14/24 09:44 Pulse Oximetry 98 12/14/24 09:44 Oxygen Delivery Room Air 12/14/24 09:44 Temperature 98 F 12/14/24 09:44 Pulse Rate 82 12/14/24 09:44 Respiratory Rate 16 12/14/24 09:44 Blood Pressure 154/85 H 12/14/24 09:44 Pulse Oximetry 98 12/14/24 09:44 Oxygen Delivery Room Air 12/14/24 09:44 Reviewed Medical Decision Making MDM Narrative Medical decision making narrative: Patient sitting comfortably in exam room. Nontoxic, vitals stable. Patient in no acute distress Patient presents 2 day history of left ear pain, erythema noted to the ear canal, TM within normal limits Patient appropriate for outpatient treatment of otitis externa Due to patient's allergies of Cipro will prescribe Cortisporin Discharge instructions reviewed with patient, as well as provided in writing per nursing staff. The instructions also include specific and strict return/GO TO THE ER as well as f/u information. All questions have been answered, and the patient deny any further questions with discharge and discharge plan. Some parts of this dictation were generated by voice recognition software and may contain typographical and/or grammatical inaccuracies. Differential Diagnosis Differential Diagnosis: Otitis media, serous otitis, otitis externa Medical Records Medical records reviewed: Yes I reviewed the external patient's medical records. Vital Signs Vital Signs: Vital Signs Temperature 98 F 12/14/24 09:44 Pulse Rate 82 12/14/24 09:44 Respiratory Rate 16 12/14/24 09:44 Blood Pressure 154/85 H 12/14/24 09:44 Pulse Oximetry 98 12/14/24 09:44 Oxygen Delivery Room Air 12/14/24 09:44 Temperature 98 F 12/14/24 09:44 Pulse Rate 82 12/14/24 09:44 Respiratory Rate 16 12/14/24 09:44 Blood Pressure 154/85 H 12/14/24 09:44 Pulse Oximetry 98 12/14/24 09:44 Oxygen Delivery Room Air 12/14/24 09:44 Reviewed Lab Data Lab results reviewed: Yes I reviewed the patient's lab results. Labs: Reviewed Critical Care Time Critical Care Time Critical Care Time: No Discharge Plan Discharge Clinical Impression: Acute otitis externa of left ear Patient Disposition: Home Condition: Stable Instructions: Swimmer's Ear (AC) Additional Instructions: Today your blood pressure was 154/85. Follow-up with primary care provider this week Do not put anything in your ears to include hearing aids or Q-tips. Take Motrin alternating with Tylenol as needed for pain For new or worsening symptoms go directly to the emergency room Patient Language: Italian Prescriptions: New gxsvszbz-ztffasuzy-WQ 3.5-10,000-1 mg/mL-unit/mL-% drops,suspension 4 drp LEFT EAR Q6H 7 Days Qty: 10 0RF No Action Jardiance 10 mg Tablet 10 mg PO DAILY albuterol sulfate 2.5 mg /3 mL (0.083 %) solution for nebulization 2.5 mg inhalation Q4-6H gabapentin 300 mg capsule 300 mg PO DAILY albuterol sulfate [Ventolin HFA] 90 mcg/actuation HFA aerosol inhaler 90 mcg INHALATION PRN PRN (Reason: Shortness Of Breath Or Wheezing) insulin lispro protamin-lispro 100 unit/mL (75-25) insulin pen 35 unit SUBCUT BID atorvastatin 40 mg tablet cetirizine 10 mg tablet glimepiride 4 mg tablet lidocaine 5 % adhesive patch,medicated diclofenac sodium 50 mg tablet,delayed release (DR/EC) PO Incruse Ellipta 62.5 mcg/actuation blister with device INHALATION Xultophy 100/3.6 100 unit-3.6 mg /mL (3 mL) insulin pen SUBCUT cholecalciferol (vitamin D3) [Vitamin D3] 25 mcg (1,000 unit) tablet 1,000 unit PO DAILY (DME) pen needle, diabetic [Unifine Pentips] 32 gauge x 5/32 Needle MISCELLANEOUS escitalopram oxalate 10 mg tablet 10 mg PO DAILY aripiprazole 10 mg tablet 10 mg PO DAILY ibuprofen 800 mg tablet 800 mg PO TID PRN (Reason: pain) Qty: 15 0RF Follow-up/Referrals: PHYSICIAN NOT ON STAFF,NONSTAFF [Primary Care Provider] Time of Disposition: 10:01
--- OUTSIDE RECORDS SUMMARY | 2024-12-14 10:16 | XMS_ITS | Encounter Summary ---
Author Organization [facility] Address [address] [place] [id number] Care Team Providers Care Cranberry Sorter Name Role Phone Joan Myers MD Primary Care Provider [phone] Gill Drew BENDING PRESS OPERATOR Unavailable [phone] Encounter Details Date Type Department Care Team (Late st Contact Info) Description 02/17/[address] 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
--- OUTSIDE RECORDS SUMMARY | 2024-12-14 10:16 | XMS_ITS | Clinical Summary ---
Author Organization [facility] Address [address] [place] [id number] Care Team Providers Care Aircraft Maintenance Instructor Name Role Phone Joan Ramsey MD Primary Care Provider Gill Drew PARKING ENFORCEMENT MANAGER Unavailable [phone] Allergies Active Allergy Reactions Criticality Noted [...] comments) Low 07/16/2016 Pt does not know Elaine Hives Medium 02/28/2016 Medications cetirizine (ZyrTEC) 10 mg tablet take 1 tablet (10MG) by oral route every day 0 02/26/20 10 Active rOPINIRole (REQUIP) 2 mg tablet Take [...] wheezing or shortness of breath 1 Inhaler 12/29/19 19 Active ibuprofen (ADVIL,MOTRIN) 600 mg tablet 09/08/19 20 Active Incruse Ellipta 62.5 mcg/actuation blister with device 01/03/20 20 Active albuterol 2.5 mg /3 mL (0.083 %) nebulizer solution 08/23/19 22 Active famotidine (PEPCID) 20 mg tablet 11/05/19 22 Active lamoTRIgine (LaMICtal) 25 mg tablet 03/17/20 22 Active lidocaine (LIDODERM) 5 % 06/10/19 23 Active baclofen (LIORESAL) 20 mg tablet 10/16/19 23 Active pen needle, diabetic 32 gauge x 5/32 needle Use to inject insulin up to 4times/day. E11.65 400 each 3 01/20/20 23 Active empagliflozin (JARDIANCE) 25 mg tabletIndicatio ns:type 2 diabetes mellitus Take 1 tablet (25 mg total) by mouth daily e11.65 90 tablet 3 12/13/19 24 Active cyclobenzaprine (FLEXERIL) 10 mg tablet TAKE 1 TABLET BY MOUTH THREE TIMES DAILY FOR UP TO 10 DAYS NEEDED FOR SHOULDER PAIN 02/07/20 24 Active lancets misc 1 each by other route daily Use to monitor blood sugar 2x daily. E11.65 200 each 3 04/03/20 24 Active blood-glucose meter kit Use daily as directed for monitoring of blood sugar for diabetes. E11.65 1 kit 04/03/20 24 Active blood glucose diagnostic (glucose blood) strip Check blood sugar 2x times a day or as directed. E11.65 200 each 4 04/03/20 24 Active alcohol swabs pads, medicated APPLY 1 PAD TOPICALLY THREE TIMES DAILY 06/10/19 25 Active subcutaneous insulin pump (MiniMed 780G Insulin Pump) misc Inject 1 Device under the skin continuously Medtronic 780G Insulin pump with Guardian 4 transmittor and Guardian 4 sensors with 7 day extend insertion set. E11.65 1 each 09/06/19 25 Active atorvastatin (LIPITOR) 40 mg tablet Take 1 tablet (40 mg total) by mouth daily 90 tablet 4 09/07/19 25 Active insulin lispro (HumaLOG, ADMELOG) 100 unit/mL vial for injection Infuse insulin via Medtronic 780g insulin pump. Total daily dose of insulin-75 units Ell.65 70 mL 3 09/29/19 25 026 Active blood glucose diagnostic (Accu-Chek Guide test strips) strip Use to monitor glucose and calibrate Medtronic 780G insulin pump 4 times daily 400 strip 3 09/29/19 25 Active Guardian 4 Glucose Sensor device USE as directed TO monitor blood glucose. CHANGE sensor every 5-7 DAYS. 11/24/19 25 Active Guardian 4 Transmitter device USE with [employer] 4 Sensors TO monitor blood glucose as directed 11/24/19 25 Active FeroSuL 325 mg (65 mg iron) tablet TAKE TABLET BY MOUTH EVERY DAY 11/14/19 25 Active gabapentin (NEURONTIN) 300 mg capsuleIndicati ons:Diabetic Peripheral Neuropathy,Neur opathic Pain Take 1 capsule (300 mg total) by mouth nightly 90 capsule 4 12/08/19 25 Active gabapentin (NEURONTIN) 300 mg capsule 01/03/20 025 Discontin ued(Reord er) glimepiride (AMARYL) 4 mg tablet Take 1 tablet (4 mg total) by mouth daily 06/08/19 025 Discontin ued(Thera py completed ) Active Problems Problem Noted Date Diagnosed Date Medtronic 780g Insulin pump in place 12/07/2024 Assessment & Plan (12/07/2024 1:44 PM CDT): This is a chronic condition which is improved but, not at goal. Download reviewed from 11/23/2024 to 12/06/2024 Type of insulin pump- Medtronics 780g Pump settings : Basal- 1 IC - 9 ISF-35 Active insulin time 2hrs. TARGET GLUCOSE- 100-110 Avg BG- 204 +/- 45 mg/dl Avg Total daily insulin- 25.5 units Avg daily basal - 22 units (87 %) Avg daily bolus - 3 units (13%) Interpretation-33% time in range. 67% hyperglycemia. 0 hypoglycemia. In smart guard 19% of the time. Manual mode 77%. Sensor wear 50%. She just started wearing her guardian sensor I expect more improvement as her time on the pump continues Insulin pump management New insulin pump initiated. Initial bolus dosing challenges improving. Blood glucose high but expected to improve with pump acclimation. Sensor requires two weeks for accurate calibration. Patient appreciates reduced need for finger sticks. - Continue insulin pump and sensor use. - Educated on bolus dosing and pump management. - Advised using a baby sock or special clothing to secure pump. - Scheduled follow-up with Marga for support and questions. Caregiver stress 12/07/2024 Class 3 severe obesity due t o excess calories with serious comorbidity and body mass index (BMI) of 40.0 to 44.9 in adult 12/16/2021 Assessment & Plan (04/03/2024 3:20 PM RANCH SUPERVISOR): This is a chronic condition which continues [...] week Assessment & Plan (04/21/2023 2:20 PM RANCH SUPERVISOR): This is a chronic condition which continues to improve 2 lb weight loss since last office visit Encouraged healthy eating, small portion sizes and exercise Discussed eating vegetables such as tomatoes, lettuce, pickles Assessment & Plan (01/19/2023 2:41 PM CDT): This is a chronic condition which continues 10 lb weight loss since last office visit due to [id number] diabetes Encouraged to take medications eat healthy and exercise Assessment & Plan (06/23/2022 11:06 AM CDT): This is a chronic condition which is improving with 10lb weight loss since last office visit. Encouraged healthy eating and exercise Continue Victoza to promote weight loss Assessment & Plan (03/24/2022 7:46 AM RANCH SUPERVISOR): This is a chronic condition which is worsening Encouraged healthy eating and exercise Continue Victoza to promote weight loss Assessment & Plan (12/16/2021 10:12 AM CDT): This is a chronic condition which is worsening Encouraged healthy eating and exercise Continue Victoza to promote weight loss Hyperlipidemia associated with type 2 diabetes kaitlin padgett 09/30/2020 Assessment & Plan (04/03/2024 3:21 PM RANCH SUPERVISOR): This is a chronic condition which is [...] week. Assessment & Plan (04/21/2023 2:19 PM RANCH SUPERVISOR): This is a chronic condition which is [...] prescribed. Assessment & Plan (03/24/2022 7:45 AM RANCH SUPERVISOR): This is a chronic condition which is [...] prescribed. Assessment & Plan (06/13/2021 1:54 PM RANCH SUPERVISOR): This is a chronic condition which is worsening and not at goal. Goal is less than 70. Personally reviewed lipid panel. LDL -156 on atorvastatin 40 mg daily (high intensity). Encouraged to eat healthy, include fresh fruits and vegetables daily and avoid eating fried foods more than once per week. Please take medications as prescribed. Assessment & Plan (03/31/2021 2:15 PM RANCH SUPERVISOR): This is a chronic condition which is worsening and not at goal. Goal is less than 70. Personally reviewed lipid panel. LDL -156 on atorvastatin 40 mg daily (high intensity). Encouraged to eat healthy, include fresh fruits and vegetables daily and avoid eating fried foods more than once per week. Please take medications as prescribed. Assessment & Plan (02/12/2021 1:52 PM RANCH SUPERVISOR): This is a chronic condition which is [...] 06/28/2020 Assessment & Plan (04/03/2024 3:21 PM RANCH SUPERVISOR): This is a chronic condition which is [...] B/P Assessment & Plan (04/21/2023 2:19 PM RANCH SUPERVISOR): This is a chronic condition which is [...] prescribed. Assessment & Plan (03/24/2022 7:46 AM RANCH SUPERVISOR): This is a chronic condition which is [...] Type 2 diabetes mellitus wit h hyperglycemia, with long-term current use of insulin Assessment & Plan (04/03/2024 3:20 PM RANCH SUPERVISOR): This is a chronic condition which is [...] losartan Assessment & Plan (04/21/2023 2:19 PM RANCH SUPERVISOR): This is a chronic condition which is [...] exam. last dilated eye exam was at [facility] Mon[facility] foot exam completed, loss of [...] No history of macrovascular disease - CVA, CA. Encouraged to take medications as prescribed. Labs per care everywhere- transcribed into [email or web address]. Assessment & Plan (03/24/2022 7:45 AM RANCH SUPERVISOR): This is a chronic condition which is [...] exam. last dilated eye exam was at [facility]of[facility] foot exam completed, loss of [...] No history of macrovascular disease - CVA, CA. Encouraged to take medications as prescribed. Labs per care everywhere- transcribed into [email or web address]. Assessment & Plan (12/16/2021 10:16 AM CDT): [...] exam. last dilated eye exam was at [facility] foot exam completed, loss of [...] No history of macrovascular disease - CVA, CA. Encouraged to take medications as prescribed. Labs per care everywhere- transcribed into [email or web address]. Assessment & Plan (09/15/2021 2:32 PM CDT): [...] exam. last dilated eye exam was at [facility] foot exam completed, loss of [...] No history of macrovascular disease - CVA, CA. Encouraged to take medications as prescribed. Labs per care everywhere- transcribed into [email or web address]. Assessment & Plan (06/13/2021 2:08 PM RANCH SUPERVISOR): This is a chronic condition which is [...] exam. last dilated eye exam was at [facility] foot exam completed, loss of [...] No history of macrovascular disease - CVA, CA. Encouraged to take medications as prescribed. Assessment & Plan (03/31/2021 2:12 PM RANCH SUPERVISOR): This is a chronic condition which is [...] exam. last dilated eye exam was at [facility]of[facility] foot exam completed, loss of [...] No history of macrovascular disease - CVA, CA. Encouraged to take medications as prescribed. Assessment & Plan (02/12/2021 2:05 PM RANCH SUPERVISOR): This is a chronic condition which is [...] exam. last dilated eye exam was at [facility] Monof[facility] foot exam completed, loss of [...] No history of macrovascular disease - CVA, CA. Encouraged to take medications as prescribed. Assessment [...] exam. last dilated eye exam was at [facility] Monof[facility] foot exam completed, loss of [...] No history of macrovascular disease - CVA, CA. Encouraged to take medications as prescribed. Assessment [...] exam. last dilated eye exam was at [facility] Monofil[facility] foot exam completed, loss of [...] No history of macrovascular disease - CVA, CA. Encouraged to take medications as prescribed. Assessment [...] exam. last dilated eye exam was at [facility] Monof[facility] foot exam completed, loss of [...] No history of macrovascular disease - CVA, CA. Assessment & Plan (03/25/2020 2:47 PM RANCH SUPERVISOR): This is a chronic condition which is [...] her medicine and she is taking them. [facility] called to review medication list. Monitor blood sugar 2x times a day. Encouraged annual eye exam. last dilated eye exam was at [facility] Monofil[facility] foot exam completed, loss of [...] No history of macrovascular disease - CVA, CA. Assessment & Plan (01/23/2020 12:00 PM CDT): This is a chronic condition which is uncontrolled with hyperglycemia and worsening. Last A1c- 11.1 (10.5.20) from Dr. Joan Ramsey's office Medication- Continue on Humalog 75/25 [...] No history of macrovascular disease - CVA, CA. Assessment & Plan (09/22/2019 4:10 PM CDT): [...] daily history of macrovascular disease - CVA, CA. Resolved Problems Problem Noted Date Diagnosed Date Resolved Date Homelessness 09/05/2024 12/07/2024 Morbid (severe) obesity due to excess calories 12/16/2021 03/24/2022 Assessment & Plan (12/16/2021 10:13 AM CDT): This is a chronic condition which is worsening Encouraged healthy eating and exercise Continue Vicza to promote weight loss Acute pain of [...] 09/29/2017 03/25/2020 Contusion of right hip 12/16 Encounters Date Type Department Care Team Description 12/07/2024 1:00 PM CDT Office Visit [facility] at [address] [id number] Gill Drew, PARKING ENFORCEMENT MANAGER Type 2 diabetes mellitus with hyperglycemia, with long-term current use of insulin (HCC) (Primary Dx); Hypertension associated with diabetes (HCC); Hyperlipidemia associated with type 2 diabetes mellitus (HCC); Caregiver stress; Medtronic 780g Insulin pump in place; Class 3 severe obesity due to excess calories with serious comorbidity and body mass index (BMI) of 40.0 to 44.9 in adult 09/27/2024 Telephone [facility] at [address] [place] [phone] Gill Drew PARKING ENFORCEMENT MANAGER from Last 3 Months Surgical History Surgery Date Site/Laterality Comments TUBAL [...] 09/29/2017 Acute pain of left shoulder 10/28/2020 Homelessness 09/05/2024 Family History Medical History Relation Name Comments [...] on file Legal Sex Female 10:31 AM RANCH SUPERVISOR Gender Identity Not on file Sexual Orientation Not on file Obstetrics History Para Term AB IAB SAB Ectopic Multiple Livin g Live Births 3 3 3 Date Outcome GA Total Labor Labor/2nd/3rd Weight Sex Type Anes PTL Abiola A1 A5 Name Clin Term Term Term Last Filed Vital Signs Vital Sign Reading Time Taken Comments Blood Pressure 112/60 12/07/2024 1:03 PM CDT Pulse 84 10/29/2020 7:35 AM CDT Temperature 36.4 C (97.6 F) 10/29/2020 7:35 AM CDT Respiratory Rate 16 10/29/2020 7:35 AM CDT Oxygen Saturation 95% 10/29/2020 11:50 AM CDT Inhaled Oxygen Concentration - - Weight 109.8 kg (242 lb) 12/07/2024 1:03 PM CDT Height 157.5 cm (5' 2) 12/07/2024 1:03 PM CDT Body Mass Index 44.26 12/07/2024 1:03 PM CDT Plan of Treatment Health Maintenance Due Date Last Done Comments Cervical Cancer Screening 1965 Colon Cancer Screening-Colonoscopy 1965 Hepatitis C Screening 1965 Hepatitis B Screening 01/20/1982 Regular Well Visit/Exam 18-64 01/20/1982 Zoster Vaccine (1 of 2) 01/20/2014 Pneumococcal vaccine <65 (2 of 2 - PCV) 03/24/2018 03/24/2017 Depression Screening 10/27/2021 10/27/2020 Dilated Eye Exam 01/28/2022 01/29/2020 Breast Cancer Screening-Mammogram 11/12/2022 022 Influenza Vaccine (#1) 2024 Foot Exam 04/03/2025 04/03/2024, 0 12/2023, 04/21/2023, Additional history exists Hemoglobin A1C 06/06/2025 12/07/2024, 060 06/2024, 04/03/2024, Additional history exists Albumin Creatinine Ratio, Urine 09/05/2025 09/05/2024, 12/13/2023, 06/23/2022 Lipid Panel 09/05/2025 09/05/2024, 09/0 12/2023, 06/23/2022, Additional history exists eGFR 09/05/2025 09/05/2024, 090 12/2023, 11/06/2022, Additional history exists DTaP/Tdap/Td Vaccine (3 - Td or Tdap) 08/09/2030 08/09/2020, 04/05/2015 Procedures Procedure Name Priority Date/Time Associated Diagnosis Comments POCT HEMOGLOBIN A1C Routine 12/07/2024 1:11 PM CDT Type 2 diabetes mellitus with hyperglycemia, with long-term current use of insulin (HCC) POCT GLUCOSE Routine 12/07/2024 1:04 PM CDT Type 2 diabetes mellitus with hyperglycemia, with long-term current use of insulin (HCC) ALBUMIN CREATININE RATIO, URINE Routine 09/05/2024 1:20 PM CDT Type 2 diabetes mellitus with hyperglycemia, without long-term current use of insulin (HCC) Hypertension associated with diabetes (HCC) Hyperlipidemia associated with type 2 diabetes mellitus (HCC) EGFR Routine 09/05/2024 1:18 PM CDT Type 2 diabetes mellitus with hyperglycemia, without long-term current use of insulin (HCC) Hypertension associated with diabetes (HCC) Hyperlipidemia associated with type 2 diabetes mellitus (HCC) LIPID PANEL Routine 09/05/2024 1:18 PM CDT Type 2 diabetes mellitus with hyperglycemia, without long-term current use of insulin (HCC) Hypertension associated with diabetes (HCC) Hyperlipidemia associated with type 2 diabetes mellitus (HCC) SCREENING MAMMOGRAM BILATERAL W JOSE Schedule Routine, Read Routine (OP Routine) 11/12/2021 8:23 AM CDT Encounter for screening mammogram for malignant neoplasm of breast DIABETIC EYE EXAM Routine 01/29/2020 from Last 3 Months or Most Recently Relevant to Health Maintenance Results * (ABNORMAL) POCT hemoglobin A1c (12/07/2024 1:11 PM CDT) Hemoglobin A1C, POC 10.3(A) 4.0 - 5.6 % Blood 12/07/2024 1:11 PM CDT us Gill K. Rajendra PARKING ENFORCEMENT MANAGER POINT OF CARE TEST ORDERABLES F inal Result * POCT glucose (12/07/2024 1:04 PM CDT) Pathologist [facility] Glucose Blood, POC 255 Normal Fasting 70 - 100, Random <200 mg/dL Blood 12/07/2024 1:04 PM CDT Gill Drew PARKING ENFORCEMENT MANAGER POINT OF CARE TEST ORDERABLES F inal Result * Albumin Creatinine Ratio, Urine (09/05/2024 1:20 PM CDT) [facility] Albumin Ur <12.0 mg/L Comment: Interpretive Data No reference range established. Current interpretive data was last revised 2018. Testing performed by: [address] [address] Creatinine Ur 149.7 mg/dL [facility] Comment: Interpretive Data No reference range established. Current interpretive data was last revised 2018. Testing performed by: [address] [address] Albumin Creatinine Ratio, Ur <8 1 - 29 mg/g [facility] Comment:Testing performed by : [address] [id number] Urine 09/05/2024 1:20 PM CDT 09/05/2024 9:20 PM CDT Gill Drew PARKING ENFORCEMENT MANAGER LAB URINE ORDERABLES Final Resu lt [address] Department [place] [address] * eGFR (09/05/2024 1:18 PM CDT) [facility] eGFR >90 >=60 mL/min/1. 73 m2 Comment: [...] Current interpretive data was last reviewed 2021. Testing performed by: [facility], [address] [place] [address]., [id number] Blood 09/05/2024 1:18 PM CDT 09/05/2024 9:33 PM CDT us Gill Drew PARKING ENFORCEMENT MANAGER LAB BLOOD ORDERABLES Final Resu lt [facility] [id number] [facility] Department of Laboratories [place], [place] [id number] * (ABNORMAL) Lipid panel (09/05/2024 1:18 PM CDT) Cholesterol 233(H) 30 - 199 mg/dL Comment: Interpretive Data [...] Interpretive Data was last revised on 2017. Testing performed by: [facility], [address] [place] [address]., [id number] Triglycerides 107 <=149 mg/dL [facility] Comment: Interpretive Data [...] Interpretive Data was last revised on 2017. Testing performed by: [facility], [address] [place] [address]., [id number] HDL 53 >=40 mg/dL [facility] Comment: Interpretive Data Ages < or = [...] Interpretive Data was last revised on 2017. Testing performed by: [facility], [address] [place] [address]., [id number] LDL, calculated 161(H) <=129 mg/dL [facility] Comment: Interpretive Data Ages < or = [...] NCEP Expert Panel. Circulation 2004;110:227 3. Mohsen Archer al. FAB Cardiol. 2020 August 03;5(5):540-548. doi: 10.1001/[email or web address] Current Interpretive Data was last revised on 2023. Testing performed by: [facility], [address] [place] [address]., [id number] Non-HDL Cholesterol 180 mg/dL [facility] Comment: Interpretive Data Ages < or = [...] Interpretive Data was last revised on 2017. Testing performed by: [facility], [address] [place] [address]., [id number] Chol/HDL ratio 4 [facility] Comment:Testing performed by : [address] [id number] Blood 09/05/2024 1:18 PM CDT 09/05/2024 9:19 PM CDT Narrative [facility] - 09/05/2024 9:52 PM CDT These lab test should be done fasting. This means do not eat or drink for at least 12 hours prior to getting your blood drawn. Has the patient been fasting for 8 hours or more?->Yes us Gill Drew NP LAB BLOOD ORDERABLES Final Resu lt [facility] [id number] [place] [address] Department [place] [address] * Screening Mammogram Bilateral W Jose (11/12/2021 8:23 AM CDT) Anatomical Region Laterality [...] PM CDT EXAMINATION: SCREENING MAMMOGRAM BILATERAL W JOSE ORDERING HEALTHCARE PROVIDER: JOAN RAMSEY HISTORY: Routine screening mammography. COMPARISON: None [...] There has been no suspicious interval change. Joan Ramsey MD IMG MAMMO PROCEDURES Final Re sult * Diabetic Eye Exam (01/29/2020) Historical Provider HEALTH MAINTENANCE Final Result from Last 3 Months or Most Recently Relevant to Health Maintenance Insurance [facility] Advance Directives For more information, please contact: [phone] * Full Code (Latest Code Status on File) Date Activated Date Inactivated Comments 10/27/2020 6:21 PM 10/29/2020 6:48 PM * Full Code Date Activated Date Inactivated Comments 09/28/2017 11:10 PM 10/01/2017 6:31 PM Care Teams Aircraft Maintenance Instructor Relationship Specialty Start Date End Date Joan Ramsey MD [address] [place] [address] PCP - General 12/27/18 Gill Drew NP [address] [place] [address] Nurse Practitioner Endocrinology Diabetes & Metabolism 02/05/20
--- OUTSIDE RECORDS SUMMARY | 2024-12-14 10:17 | XMS_ITS | Clinical Summary ---
Author Organization [facility] Address [address] [place] [address] Phone Care Team Providers Care Property Preservation Specialist Name Role Phone Joan Myers MD Primary Care Provider [phone] Allergies Active Allergy Reactions Criticality Noted Date [...] by mouth daily. 30 Capsule 2 Active HYDROcodone-neha taminophen (NORCO) 10-325 MG TabletIndicatio [...] Asthma Anxiety GERD (gastroesophageal reflux disease) Hyperlipidemia Encounters Date Type Department Care Team Description 09/13/2024 6:30 PM CDT - 09/13/2024 6:54 PM CDT Emergency [facility] Emergency [address] [place] [address] Darian Khanna, TAIWO Infectious otitis externa, right Discharge Disposition: Discharged to home or Selfcare 09/13/2024 Travel from Last 3 Months Family History Medical History Relation Name Comments [...] Sign Reading Time Taken Comments Blood Pressure 144/80 09/13/2024 6:28 PM CDT Pulse 93 09/13/2024 6:28 PM CDT Temperature 36.7 C (98 F) 09/13/2024 6:28 PM CDT Respiratory Rate 16 09/13/2024 6:28 PM CDT Oxygen Saturation 97% 09/13/2024 6:28 PM CDT Inhaled Oxygen Concentration - - Weight 94.3 kg (208 lb) 09/13/2024 6:28 PM CDT Height 157.5 cm (5' 2) 09/13/2024 6:28 PM CDT Body Mass Index 38.04 09/13/2024 6:28 PM CDT Plan of Treatment Health Maintenance Due Date Last Done Comments Diabetes: Foot Exam 1965 Hepatitis C Virus (HCV) Screening 1965 Pap Smear 01/20/1985 Cervical Cancer Screening (CCS) 01/20/1994 HPV/Cotest 01/20/1994 Cologuard 01/20/2009 Colonoscopy 01/20/2009 Colorectal Cancer Screening 01/20/2009 Immunochemical Fecal Occult Blood 01/20/2009 Zoster Immunization (1 of 2) 01/20/2014 Pneumococcal Immunization (50+ years) (2 of 2 - PCV) 03/24/2018 03/24/2017 Diabetes: Eye Exam 10/18/2019 10/17/2018 Mammogram 11/12/2022 11/12/2021 Diabetes: Nephropathy Screening 11/07/2023 11/06/2022, 07/05/2021, 05/19/2020, Additional history exists Respiratory Syncytial Virus (RSV) Immunization (Adult) (1 - Risk 60-74 years 1-dose series) 2024 Influenza Immunization (#1) 2024 SARS-COV-2 Immunization ( - season) 2024 Diabetes: Hemoglobin A1c 03/07/2025 025, 12/13/2023, 01/19/2023, Additional history exists Pneumococcal Immunization Combined Discontinued 03/24/2017 DTaP/Tdap/Td Immunization Discontinued 08/09/2020, 04/2015 TdaP Immunization Completed 08/09/2020, 04/05/2015 Hepatitis B Immunization Aged Out No longer eligible based on patient's age to complete this topic Human Papillomavirus (HPV) Immunization Aged Out No longer eligible based [...] - 144 mmol/L 11/06/2022 1:53 AM CDT [facility] POTASSIUM 4.0 3.5 - 5.1 mmol/L 11/06/2022 1:53 AM [facility] CHLORIDE 101 100 - 110 mmol/L 11/06/2022 1:53 AM [facility] CO2, VENOUS 25 22 - 32 mmol/L 11/06/2022 1:53 AM [facility] ANION GAP 14.0 8.0 - 20.0 mmol/L 11/06/2022 1:53 AM [facility] GLUCOSE 194(H) 70 - 99 mg/dL 11/06/2022 1:53 AM [facility] BUN 12 6 - 20 mg/dL 11/06/2022 1:53 AM [facility] CREATININE, BLOOD 0.75 0.60 - 1.10 mg/dL 11/06/2022 1:53 AM [facility] BUN/CREATININE RATIO 16 12 - 20 ratio 11/06/2022 1:53 AM [facility] TOTAL PROTEIN 5.9(L) 6.0 - 8.3 g/dL 11/06/2022 1:53 AM [facility] ALBUMIN 3.5 3.5 - 5.2 g/dL 11/06/2022 1:53 AM [facility] Comment: The colormetric methods used for the determination of Albumin may lead to falsely elevated test results in patients suffering from renal failure or insufficiency due to interference with other proteins. A/G RATIO 1.5 1.0 - 2.0 11/06/2022 1:53 AM [facility] CALCIUM 8.5(L) 8.7 - 10.5 mg/dL 11/06/2022 1:53 AM [facility] T BILI 0.4 0.2 - 1.2 mg/dL 11/06/2022 1:53 AM [facility] SGOT (AST) 16 <=32 U/L 11/06/2022 1:53 AM [facility] SGPT (ALT) 14 <=41 U/L 11/06/2022 1:53 AM CDT [facility] ALKALINE PHOSPHATASE 89 35 - 105 U/L 11/06/2022 1:53 AM CDT [facility] GFR, ESTIMATED >60 >=60 11/06/2022 1:53 AM CDT [facility] Comment: Creatinine Clearance is the preferred criteria for selecting drug dose adjustments in renally impaired patients. The GFR is provided as additional pertinent clinical information. GFR is reported in mL/min/1.73 sq m. Calculation based on the Chronic Kidney Disease Epidemiology Collaboration (CKD- EPI) equation refit without adjustment for race. GFR, EST. >60 >=60 023 1:53 AM CDT [facility] GFR, EST. NONAFRICAN >60 >=60 11/06/2022 1:53 AM CDT [facility] Blood Venipuncture / Unknown 11/06/2022 12:07 AM CDT 11/06/2022 1:22 AM CDT us Armin Arreola MD CHEMISTRY ORDERABLES Toya l Result [facility] [address] [place] [address] * HEMOGLOBIN, A1C (01/08/2020) HGB-A1C 11.1 % Blood 01/08/2020 us Joan Myers MD CHEMISTRY ORDERABLES Final Re sult from Last 3 Months or Most Recently Relevant to Health Maintenance Insurance [employer] [facility] [employer] Advance [...] measures to stabilize the patient. Care Teams Property Preservation Specialist Relationship Specialty Start Date End Date Joan Myers MD [address] [place] [address] PCP - General Internal Medicine 05/19/20
== END 2024-12-14 10:06 | disposition home or self-care (01) ==
PROVIDERS: Emergency Provider Nurse Practitioner
DX: H60.92 Unspecified otitis externa, left ear (principal); F17.210 Nicotine dependence, cigarettes, uncomplicated; I10 Essential (primary) hypertension; E11.9 Type 2 diabetes mellitus without complications; Z79.85 Long-term (current) use of injectable non-insulin antidiabetic drugs; Z79.4 Long term (current) use of insulin; E78.00 Pure hypercholesterolemia, unspecified; K21.9 Gastro-esophageal reflux disease without esophagitis; J45.909 Unspecified asthma, uncomplicated; M19.90 Unspecified osteoarthritis, unspecified site; F41.9 Anxiety disorder, unspecified; F32.A Depression, unspecified
CPT/HCPCS: 99213; G0463

== ENCOUNTER 2025-01-06 09:21 | Emergency (ER) | payer OTHER, SELFPAY ==
--- NOTE | ~2025-01-06 | XR_ITS ---
Examination: XR wrist RT min 3V, XR hand RT min 3V Clinical History: fall last night, pain Comparison: Right hand x-rays 01/08/2020 Technique: 4 views right wrist, 3 views right hand Findings/impression: Right wrist: 1. No fracture or dislocation. Right hand: 1. No fracture or dislocation. Reviewed, dictated and finalized at location R.
--- OUTSIDE RECORDS SUMMARY | 2025-01-06 09:23 | XMS_ITS | Encounter Summary ---
Author Organization [facility] Address [address] [place] [id number] Care Team Providers Care Roaster Helper Name Role Phone Joan Myers MD Primary Care Provider [phone] Gill Drew AUTOMOTIVE ASSEMBLER Unavailable [phone] Encounter Details Date Type Department Care Team (Late st Contact Info) Description 02/17/2021 Orders Only [facility] [address] [place] [address] Joan Myers MD [address] [place] [address] Social History Tobacco Use Types [...] on file Legal Sex Female 10:31 AM CLINICAL LABORATORY MANAGER Gender Identity Not on file Sexual Orientation Not on file documented as of this encounter Plan of Treatment Not on file documented as of this encounter Visit Diagnoses Not on filedocumented in this encounter Care Teams Roaster Helper Relationship Specialty Start Date End Date Joan Myers MD [address] [place] [address] PCP - General 12/27/18 Gill Drew NP [address] [place] [address] Nurse Practitioner Endocrinology Diabetes & Metabolism 02/05/20 documented as of this encounter
--- OUTSIDE RECORDS SUMMARY | 2025-01-06 09:23 | XMS_ITS | Clinical Summary ---
Author Organization [facility] Address [address] [place] [id number] Care Team Providers Care Guide Winder Name Role Phone Len Ramsey MD Primary Care Provider [phone] Gill Drew PLASTIC TECHNICIAN Unavailable [phone] Allergies Active Allergy Reactions Criticality Noted [...] comments) Low 07/16/2016 Pt does not know [place] Hives Medium 02/28/2016 Medications cetirizine (ZyrTEC) 10 [...] ibuprofen (ADVIL,MOTRIN) 600 mg tablet 0 Active Incruse Ellipta 62.5 mcg/actuation blister with device 0 Active albuterol 2.5 mg /3 mL (0.083 %) nebulizer solution 2 Active famotidine (PEPCID) 20 mg tablet 2 Active lamoTRIgine (LaMICtal) 25 mg tablet 2 Active lidocaine (LIDODERM) 5 % 3 Active baclofen (LIORESAL) 20 mg tablet 3 Active pen needle, diabetic 32 gauge x 5/32 needle Use to inject insulin up to 4times/day. E11.65 400 each 3 3 Active empagliflozin (JARDIANCE) 25 mg tabletIndicatio ns:type 2 diabetes mellitus Take 1 tablet (25 mg total) by mouth daily e11.65 90 tablet 3 4 Active cyclobenzaprine (FLEXERIL) 10 mg tablet TAKE [...] directed. E11.65 200 each 4 4 Active alcohol swabs pads, medicated APPLY 1 PAD TOPICALLY THREE TIMES DAILY 5 Active subcutaneous insulin pump (MiniMed 780G Insulin Pump) misc Inject 1 Device under the skin continuously Medtronic 780G Insulin pump with Guardian 4 transmittor and Guardian 4 sensors with 7 day extend insertion set. E11.65 1 each 5 Active atorvastatin (LIPITOR) 40 mg tablet Take 1 tablet (40 mg total) by mouth daily 90 tablet 4 Active insulin lispro (HumaLOG, ADMELOG) 100 unit/mL vial for injection Infuse insulin via Medtronic 780g insulin pump. Total daily dose of insulin-75 units Ell.65 70 mL 3 5 09/29/19 Active blood glucose diagnostic (Accu-Chek Guide test strips) strip Use to monitor glucose and calibrate Medtronic 780G insulin pump 4 times daily 400 strip 3 5 Active Guardian 4 Glucose Sensor device USE as directed TO monitor blood glucose. CHANGE sensor every 5-7 DAYS. 5 Active Guardian 4 Transmitter device USE with Guardian 4 Sensors TO monitor blood glucose as directed Active FeroSuL 325 mg (65 mg iron) tablet TAKE TABLET BY MOUTH EVERY DAY Active gabapentin (NEURONTIN) 300 mg capsuleIndicati ons:Diabetic Peripheral Neuropathy,Neur opathic Pain Take 1 capsule (300 mg total) by mouth nightly 90 capsule 4 Active Active Problems Problem Noted Date Diagnosed Date Medtronic 780g Insulin pump in place 12/07/2024 Assessment & Plan (12/21/2024 12:13 PM CDT): This is a chronic condition which is improved but, not at goal. Download reviewed from 12/07/2024 to 12/20/2024 Type of insulin pump- Medtronics 780g Pump settings : Basal- 1 IC - 9 ISF-35 Active insulin time 2hrs. TARGET GLUCOSE- 100-110 Avg BG- 178 +/- 47 mg/dl Avg Total daily insulin- 47 units Avg daily basal - 24 units (50 %) Avg daily bolus - 24 units (50%) Interpretation-54% time in range. 467% hyperglycemia. 0 hypoglycemia. In smart guard 92%, manual mode -8%. Assessment & Plan (12/07/2024 1:44 PM CDT): [...] follow-up with Marga for support and questions. Stress 12/07/2024 Class 3 severe obesity due t o excess calories with serious comorbidity and body mass index (BMI) of 40.0 to 44.9 in adult 12/16/2021 Assessment & Plan (04/03/2024 3:20 PM MACHINE IRONER): This is a chronic condition which continues [...] week Assessment & Plan (04/21/2023 2:20 PM MACHINE IRONER): This is a chronic condition which continues to improve 2 lb weight loss since last office visit Encouraged healthy eating, small portion sizes and exercise Discussed eating vegetables such as tomatoes, lettuce, pickles Assessment & Plan (01/19/2023 2:41 PM CDT): This is a chronic condition which continues 10 lb weight loss since last office visit due to xfe-ic-idnngbo diabetes Encouraged to take medications eat healthy and exercise Assessment & Plan (06/23/2022 11:06 AM CDT): This is a chronic condition which is improving with 10lb weight loss since last office visit. Encouraged healthy eating and exercise Continue Victoza to promote weight loss Assessment & Plan (03/24/2022 7:46 AM MACHINE IRONER): This is a chronic condition which is worsening Encouraged healthy eating and exercise Continue Victoza to promote weight loss Assessment & Plan (12/16/2021 10:12 AM CDT): This is a chronic condition which is worsening Encouraged healthy eating and exercise Continue Victoza to promote weight loss Hyperlipidemia associated with type 2 diabetes kaitlin padgett 09/30/2020 Assessment & Plan (04/03/2024 3:21 PM MACHINE IRONER): This is a chronic condition which is [...] week. Assessment & Plan (04/21/2023 2:19 PM MACHINE IRONER): This is a chronic condition which is [...] prescribed. Assessment & Plan (03/24/2022 7:45 AM MACHINE IRONER): This is a chronic condition which is [...] prescribed. Assessment & Plan (06/13/2021 1:54 PM MACHINE IRONER): This is a chronic condition which is worsening and not at goal. Goal is less than 70. Personally reviewed lipid panel. LDL -156 on atorvastatin 40 mg daily (high intensity). Encouraged to eat healthy, include fresh fruits and vegetables daily and avoid eating fried foods more than once per week. Please take medications as prescribed. Assessment & Plan (03/31/2021 2:15 PM MACHINE IRONER): This is a chronic condition which is worsening and not at goal. Goal is less than 70. Personally reviewed lipid panel. LDL -156 on atorvastatin 40 mg daily (high intensity). Encouraged to eat healthy, include fresh fruits and vegetables daily and avoid eating fried foods more than once per week. Please take medications as prescribed. Assessment & Plan (02/12/2021 1:52 PM MACHINE IRONER): This is a chronic condition which is [...] 06/28/2020 Assessment & Plan (04/03/2024 3:21 PM MACHINE IRONER): This is a chronic condition which is [...] B/P Assessment & Plan (04/21/2023 2:19 PM MACHINE IRONER): This is a chronic condition which is [...] prescribed. Assessment & Plan (03/24/2022 7:46 AM MACHINE IRONER): This is a chronic condition which is [...] insulin Assessment & Plan (04/03/2024 3:20 PM MACHINE IRONER): This is a chronic condition which is [...] losartan Assessment & Plan (04/21/2023 2:19 PM MACHINE IRONER): This is a chronic condition which is [...] exam. last dilated eye exam was at [facility] foot exam completed, loss of [...] No history of macrovascular disease - CVA, OR. Encouraged to take medications as prescribed. Labs per care everywhere- transcribed into [employer]. Assessment & Plan (03/24/2022 7:45 AM MACHINE IRONER): This is a chronic condition which is [...] exam. last dilated eye exam was at [facility] foot exam completed, loss of [...] No history of macrovascular disease - CVA, OR. Encouraged to take medications as prescribed. Labs per care everywhere- transcribed into [employer]. Assessment & Plan (12/16/2021 10:16 AM CDT): [...] exam. last dilated eye exam was at [facility] foot exam completed, loss of [...] No history of macrovascular disease - CVA, OR. Encouraged to take medications as prescribed. Labs per care everywhere- transcribed into [employer]. Assessment & Plan (09/15/2021 2:32 PM CDT): [...] exam. last dilated eye exam was at [facility] foot exam completed, loss of [...] No history of macrovascular disease - CVA, OR. Encouraged to take medications as prescribed. Labs per care everywhere- transcribed into [employer]. Assessment & Plan (06/13/2021 2:08 PM MACHINE IRONER): This is a chronic condition which is [...] exam. last dilated eye exam was at [facility] foot exam completed, loss of [...] No history of macrovascular disease - CVA, OR. Encouraged to take medications as prescribed. Assessment & Plan (03/31/2021 2:12 PM MACHINE IRONER): This is a chronic condition which is [...] exam. last dilated eye exam was at [facility] foot exam completed, loss of [...] No history of macrovascular disease - CVA, OR. Encouraged to take medications as prescribed. Assessment & Plan (02/12/2021 2:05 PM MACHINE IRONER): This is a chronic condition which is [...] exam. last dilated eye exam was at [facility] foot exam completed, loss of [...] No history of macrovascular disease - CVA, OR. Encouraged to take medications as prescribed. Assessment [...] exam. last dilated eye exam was at [facility] foot exam completed, loss of [...] No history of macrovascular disease - CVA, OR. Encouraged to take medications as prescribed. Assessment [...] exam. last dilated eye exam was at [facility] foot exam completed, loss of [...] No history of macrovascular disease - CVA, OR. Encouraged to take medications as prescribed. Assessment [...] exam. last dilated eye exam was at [facility] foot exam completed, loss of [...] No history of macrovascular disease - CVA, OR. Assessment & Plan (03/25/2020 2:47 PM MACHINE IRONER): This is a chronic condition which is [...] her medicine and she is taking them. [facility] called to review medication list. Monitor blood sugar 2x times a day. Encouraged annual eye exam. last dilated eye exam was at [facility] foot exam completed, loss of [...] No history of macrovascular disease - CVA, OR. Assessment & Plan (01/23/2020 12:00 PM CDT): This is a chronic condition which is uncontrolled with hyperglycemia and worsening. Last A1c- 11.1 (..20) from Dr. Len Ramsey's office Medication- Continue [...] No history of macrovascular disease - CVA, OR. Assessment & Plan (09/22/2019 4:10 PM CDT): [...] daily history of macrovascular disease - CVA, OR. Resolved Problems Problem Noted Date Diagnosed Date Resolved Date Homelessness 09/05/2024 12/07/2024 Morbid (severe) obesity due to excess calories 12/16/2021 03/24/2022 Assessment & Plan (12/16/2021 10:13 AM CDT): This is a chronic condition which is worsening Encouraged healthy eating and exercise Continue [facility] to promote weight loss Acute pain of [...] Encounters Date Type Department Care Team Description 12/21/2024 12:30 PM CDT Office Visit [facility] at [address] [place] [address] Gill Drew NP Type 2 diabetes mellitus with hyperglycemia, with long-term current use of insulin (HCC) (Primary Dx); Stress; Hypertension associated with diabetes (HCC); Medtronic 780g Insulin pump in place; Class 3 severe obesity due to excess calories with serious comorbidity and body mass index (BMI) of 40.0 to 44.9 in adult 12/07/2024 1:00 PM CDT Office Visit [facility] at [address] [place] [address] Gill Drew NP Type 2 diabetes mellitus with hyperglycemia, with long-term current use of insulin (HCC) (Primary Dx); Hypertension associated with diabetes (HCC); Hyperlipidemia associated with type 2 diabetes mellitus (HCC); Caregiver stress; Medtronic 780g Insulin pump in place; Class 3 severe obesity due to excess calories with serious comorbidity and body mass index (BMI) of 40.0 to 44.9 in adult from Last 3 Months Surgical History Surgery Date Site/Laterality Comments TUBAL LIGATION Bilateral tubal ligation CARPAL TUNNEL RELEASE Carpal tunnel release Medical History Medical History Date Comments Arthritis Asthma Diabetes mellitus Hypertension Hypothyroidism Depression Anxiety Social anxiety disorder [...] on file Legal Sex Female 10:31 AM MACHINE IRONER Gender Identity Not on file Sexual Orientation Not on file Obstetrics History Para Term AB IAB SAB Ectopic Multiple Livin g Live Births 3 3 3 Date Outcome GA Total Labor Labor/3rd Weight Sex Type Anes PTL Abiola A1 A5 Name Clin Term Term Term Last Filed Vital Signs Vital Sign Reading Time Taken Comments Blood Pressure 114/50 12/21/2024 11:34 AM CDT Pulse 84 10/29/2020 7:35 AM CDT Temperature 36.4 C (97.6 F) 10/29/2020 7:35 AM CDT Respiratory Rate 16 10/29/2020 7:35 AM CDT Oxygen Saturation 95% 10/29/2020 11:50 AM CDT Inhaled Oxygen Concentration - - Weight 112 kg (247 lb) 12/21/2024 11:34 AM CDT Height 157.5 cm (5' 2) 12/07/2024 1:03 PM CDT Body Mass Index 45.18 12/07/2024 1:03 PM CDT Plan of Treatment [...] Vaccine (#1) 2024 Foot Exam 04/03/2025 04/03/2024, 09/0 12/2023, 04/21/2023, Additional history exists Hemoglobin A1C 06/06/2025 12/07/2024, 060 06/2024, 04/03/2024, Additional history exists Albumin Creatinine Ratio, Urine 09/05/2025 09/05/2024, 12/13/2023, 06/23/2022 Lipid Panel 09/05/2025 09/05/2024, 09/0 12/2023, 06/23/2022, Additional history exists eGFR 09/05/2025 09/05/2024, 09/0 12/2023, 11/06/2022, Additional history exists DTaP/Tdap/Td Vaccine [...] diabetes mellitus (HCC) SCREENING MAMMOGRAM BILATERAL W RADHIKA Schedule [...] 5.6 % Blood 12/07/2024 1:11 PM CDT Gill Drew NP POINT OF CARE TEST ORDERABLES F inal Result * POCT glucose (12/07/2024 1:04 PM CDT) Glucose Blood, POC 255 Normal Fasting 70 - 100, Random <200 mg/dL Blood 12/07/2024 1:04 PM CDT Gill Drew PLASTIC TECHNICIAN POINT OF CARE TEST ORDERABLES F inal Result * Albumin Creatinine Ratio, Urine (09/05/2024 1:20 PM CDT) Albumin Ur <12.0 mg/L Comment: Interpretive Data No reference range established. Current interpretive data was last revised 2018. Testing performed by: [facility], [address] [place] [address]., [id number] Creatinine Ur 149.7 mg/dL [facility] Comment: Interpretive Data No reference range established. Current interpretive data was last revised 2018. Testing performed by: [facility], [address] [place] [address]., [id number] Albumin Creatinine Ratio, Ur <8 1 - 29 mg/g [facility] Comment:Testing performed by : [facility], [address] [place] [address]., [id number] Urine 09/05/2024 1:20 PM CDT 09/05/2024 9:20 PM CDT us Gill Drew PLASTIC TECHNICIAN LAB URINE ORDERABLES Final Resu lt Performing Organization Address [facility] Co de Phone Number [facility] [place] [address] [address] [place] [address] * eGFR (09/05/2024 1:18 PM CDT) eGFR >90 >=60 mL/min/1. 73 [...] was last reviewed 2021. Testing performed by: [facility], [address] [place] [address]., [id number] Blood 09/05/2024 1:18 PM CDT 09/05/2024 9:33 PM CDT Gill Drew PLASTIC TECHNICIAN LAB BLOOD ORDERABLES Final Resu lt Performing Organization Address [facility] Co de Phone Number NANDO [place]TO [phone] [address] [place] [address] * (ABNORMAL) Lipid panel (09/05/2024 1:18 PM [...] last revised on 2017. Testing performed by: [facility], [address] [place] [address]., [id number] Triglycerides 107 <=149 mg/dL [facility] Comment: Interpretive Data Ages < or = [...] last revised on 2017. Testing performed by: [facility], [address] [place] [address]., [id number] HDL 53 >=40 mg/dL [facility] Comment: Interpretive Data Ages < or = [...] last revised on 2017. Testing performed by: [address] [address] LDL, calculated 161(H) <=129 mg/dL [facility] Comment: Interpretive Data Ages < or = [...] last revised on 2023. Testing performed by: [address] [address] Non-HDL Cholesterol 180 mg/dL [facility] Comment: Interpretive [...] last revised on 2017. Testing performed by: [address] [address] Chol/HDL ratio 4 [facility] Comment:Testing performed by : [address] [id number] Blood 09/05/2024 1:18 PM CDT 09/05/2024 9:19 PM CDT Narrative [facility] - 09/05/2024 9:52 PM CDT These lab test should be done fasting. This means do not eat or drink for at least 12 hours prior to getting your blood drawn. Has the patient been fasting for 8 hours or more?->Yes us Gill Drew PLASTIC TECHNICIAN LAB [place]LOOD [place] [address] [address] [place] [address] * Screening Mammogram Bilateral W Radhika (11/12/2021 [...] Most Recently Relevant to Health Maintenance Insurance [facility] Advance Directives For more information, please contact: [phone] * Full Code (Latest Code Status on File) Date Activated Date Inactivated Comments 10/27/2020 6:21 PM 10/29/2020 6:48 PM * Full Code Date Activated Date Inactivated Comments 09/28/2017 11:10 PM 10/01/2017 6:31 PM Care Teams Guide Winder Relationship Specialty Start Date End Date Len Ramsey MD [address] [place] [address] PCP - General 12/27/18 Gill Drew, PLASTIC TECHNICIAN [address] [place] [address] Nurse Practitioner Endocrinology Diabetes & Metabolism 02/05/20
[2025-01-06 09:24] VITALS: BP 155/90; PULSE 82; RESP 16; TEMP 36.4; O2SAT 97
--- NOTE | 2025-01-06 10:40 | ED.FALL ---
HPI - Fall General Chief Complaint: Extremity Injury, Upper Stated Complaint: right hand/wrist injury Time Seen by Provider: 01/06/25 10:00 Source: patient and RN notes reviewed Mode of arrival: ambulatory Limitations: no limitations History of Present Illness HPI Narrative: 59-year-old female presents Express Care complaining of fall yesterday. Patient was using a pelvic restroom she did not realize the floor was slippery and she slipped trying to catch herself on the sink and fell landing on her right arm. Patient is complaining of right wrist/hand pain, primarily to the lateral side. Also complaining of right 4th and 5th digit pain. Patient denies hitting her head, no loss of consciousness, no neck pain, back pain, numbness, tingling, or any other injuries or symptoms. Patient says she took her tramadol with no relief. Patient has not tried anything else to help with symptoms. Related Data Home Medications ?Medication ?Instructions ?Recorded ?Confirmed ?Last Taken ?Type pen needle, diabetic 32 gauge x 11/26/19 08/18/23 Unknown History (Unifine Pentips) gabapentin 300 mg capsule 300 mg PO DAILY 03/12/20 08/18/23 Unknown History atorvastatin 40 mg tablet mg 08/31/24 Unknown History cetirizine 10 mg tablet mg 08/31/24 Unknown History insulin lispro 100 unit/mL 01/06/25 Unknown History subcutaneous solution tramadol 50 mg tablet mg 01/06/25 Unknown History Allergies Allergy/AdvReac Type Severity Reaction Status Date / Time cephalexin Allergy Intermediate Swelling Verified 01/06/25 09:31 ciprofloxacin Allergy Intermediate Swelling Verified 01/06/25 09:31 egg Allergy Unknown Unknown Verified 01/06/25 09:31 shellfish derived Allergy Unknown Unknown Verified 01/06/25 09:31 sulfamethoxazole Allergy Unknown Rash Verified 01/06/25 09:31 trimethoprim Allergy Unknown Rash Verified 01/06/25 09:31 peanut Allergy Rash Verified 01/06/25 09:31 Review of Systems Review of Systems: CONSTITUTIONAL: Denies fever, chills, or sweats. EYES: Denies visual changes, redness, or discharge. ENT: Denies rhinorrhea, congestion, sore throat, or otalgia. CARDIOVASCULAR: Denies chest pain, palpitations, dizziness, lightheadedness, or edema. RESPIRATORY: Denies cough or dyspnea. GASTROINTESTINAL: Denies abdominal pain, nausea, vomiting, or diarrhea. GENITOURINARY: Denies dysuria or hematuria. SKIN: Denies rash, wound, or itching. MUSCULOSKELETAL: Denies back pain, joint pain, or myalgia. Positive for right hand and wrist injury NEUROLOGIC: Denies headache, numbness, loss of consciousness, seizures, or weakness. PSYCHIATRIC: Denies anxiety or depression. All other systems reviewed are negative, except as documented in HPI. [facility] Past Medical History Medical History Anxiety Arthritis Asthma Hx of migraines Neck pain Depression Hypercholesteremia History of gastroesophageal reflux (GERD) Post traumatic stress disorder (PTSD) Hypertension Diabetes Surgical History Surgical History Hx of tubal ligation History of carpal tunnel surgery bilateral Family History Family History Father , COPD Smoker in home Mother Diabetes mellitus Grandparent Ovarian cancer Social History Social History Smoking packs per day: 0.5 Smoking cigarettes per day: 10.0 Years smoked: 50 Smoking pack-years: 25.00 Smoking status: Current every day smoker Tobacco type: cigarettes Second hand tobacco smoke exposure: No Alcohol intake: never Substance use: never Living arrangements: with family Occupation/Education: unemployed Gender identity (if verbalized by the patient): Female Comments At the time of my signature, I reviewed and agree with the nursing past medical, surgical, social, and family history. There is no relevant family history pertinent to the patient complaint. Exam Narrative: GENERAL: This is a well-nourished, well-developed adult, in no apparent distress. They are non ill-appearing, nontoxic appearing. HEAD: normocephalic, atraumatic. EYES: Sclera clear/white. Vision is grossly intact. Conjunctiva normal. Extraocular movement intact. Pupils PERRLA. EARS: External ears normal Hearing grossly intact. NOSE: External nose normal THROAT: Mucous membranes moist NECK: Neck supple CARDIOVASCULAR: Regular rate and rhythm RESPIRATORY: Respiratory rate normal, respiratory effort nonlabored, no respiratory distress NEURO: awake, alert, and oriented to person, place and time. There were no obvious focal neurologic abnormalities. EXTREMITIES: Right wrist/hand: No obvious deformity, injury, swelling, bruising, redness. Limited range of motion due to pain. Lateral wrist is tender to palpate. Fifth and 4th digit or it tender to palpate. Tenderness to palpation to lateral hand. Capillary refill less than 3 seconds. Right radial Pulse 2 +palpable. Normal sensation. Neurovascular status intact distal injury. Patient able to wiggle her fingers, make a fist, stop sign, thumbs-up sign, and okay sign. Radial, ulnar, median nerve distribution intact. No snuffbox tenderness. BACK: Nontender without deformity. Course Course Emergency Course: Portions of this record may have been created with voice recognition software Level of Care: Express Care Visit Vital Signs Vital signs: Vital Signs Temperature 97.6 F 01/06/25 09:24 Pulse Rate 82 01/06/25 09:24 Respiratory Rate 16 01/06/25 09:24 Blood Pressure 155/90 H 01/06/25 09:24 Pulse Oximetry 97 01/06/25 09:24 Oxygen Delivery Room Air 01/06/25 09:24 Temperature 97.6 F 01/06/25 09:24 Pulse Rate 82 01/06/25 09:24 Respiratory Rate 16 01/06/25 09:24 Blood Pressure 155/90 H 01/06/25 09:24 Pulse Oximetry 97 01/06/25 09:24 Oxygen Delivery Room Air 01/06/25 09:24 Reviewed MDM - Fall MDM Narrative Medical decision making narrative: X-ray right wrist and right hand are negative for any fractures or acute findings. Patient given Jordin wrap for compression. Prescription Motrin send the patient pharmacy. Discussed supportive therapy and rice therapy. Discussed physical exam findings. Advised supportive measures and signs/symptoms to go to the ER. Pt is appropriate for outpt treatment and f/u. Differential Diagnosis Differential diagnosis: Likely fracture of wrist and other (Wrist sprain, hand fracture, finger sprain, finger fracture,) Imaging Data Radiologist's impression: Findings/impression: Right wrist: 1. No fracture or dislocation. Right hand: 1. No fracture or dislocation. Critical Care Time Critical Care Time Critical Care Time: No Discharge Plan Discharge Clinical Impression: Fall Qualifiers: Encounter type: initial encounter Qualified Code(s): W19.XXXA - Unspecified fall, initial encounter Sprain of hand, right Qualifiers: Encounter type: initial encounter Qualified Code(s): S63.91XA - Sprain of unspecified part of right wrist and hand, initial encounter Sprain of wrist, right Qualifiers: Encounter type: initial encounter Wrist sprain location: unspecified location Qualified Code(s): S63.501A - Unspecified sprain of right wrist, initial encounter Patient Disposition: Home Condition: Stable Instructions: Hand Sprain (ED), Wrist Sprain (ED) Additional Instructions: The x-ray of your right wrist and hand are negative for any fractures or acute findings. Rest and elevate the the arm, uses tolerated Apply ice 15-20 minute intervals several times a day Keep it wrapped with JORDIN or use wrist cock-up splint Take the Motrin as directed. May alternate with Tylenol. You may take up to 1000 mg Tylenol every 6-8 hours. Do not exceed 1000 mg per dose, do exceed more than 4000 mg of Tylenol in a day. Follow up with your primary care provider as needed in 1-2 weeks especially if pain persist. Patient Language: Belarusian Prescriptions: New ibuprofen 600 mg tablet 600 mg PO Q6H PRN (Reason: pain) Qty: 30 0RF No Action gabapentin 300 mg capsule 300 mg PO DAILY atorvastatin 40 mg tablet cetirizine 10 mg tablet tramadol 50 mg tablet insulin lispro 100 unit/mL solution (DME) pen needle, diabetic [Unifine Pentips] 32 gauge x 5/32 Needle MISCELLANEOUS Follow-up/Referrals: Joce,Isabella Montez APRN [Primary Care Provider, Unknown] Time of Disposition: 10:38
== END 2025-01-06 10:43 | disposition home or self-care (01) ==
PROVIDERS: PCP Nurse Practitioner Family
DX: S63.91XA Sprain of unspecified part of right wrist and hand, initial encounter (principal); W01.0XXA Fall on same level from slipping, tripping and stumbling without subsequent striking against object, initial encounter; F17.210 Nicotine dependence, cigarettes, uncomplicated; I10 Essential (primary) hypertension; E11.9 Type 2 diabetes mellitus without complications; Z79.4 Long term (current) use of insulin; E78.00 Pure hypercholesterolemia, unspecified; K21.9 Gastro-esophageal reflux disease without esophagitis; J45.909 Unspecified asthma, uncomplicated; M19.90 Unspecified osteoarthritis, unspecified site
CPT/HCPCS: 73110; 73130; 99213; G0463

== ENCOUNTER 2025-02-17 17:09 | Emergency (ER) | payer OTHER, SELFPAY ==
--- NOTE | ~2025-02-17 | XR_ITS ---
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 Findings: There is a nondisplaced fracture proximal aspect of the proximal phalanx fifth digit No significant degenerative changes. Soft tissues unremarkable. Impression: Fifth digit fracture Reviewed, dictated and finalized at location [facility] Impression: Fifth digit fracture
--- OUTSIDE RECORDS SUMMARY | 2025-02-17 17:28 | XMS_ITS | Clinical Summary ---
Author Organization [facility] Address [address] [place] [id number] Care Team Providers Care Lead Mechanical Engineer Name Role Phone Len Ramsey MD Primary Care Provider [phone] Gill Drew SURVEY CREW CHIEF Unavailable [phone] Allergies Active Allergy Reactions Criticality Noted [...] comments) Low 07/16/2016 Pt does not know [place] Hives Medium 02/28/2016 Medications cetirizine (ZyrTEC) 10 [...] 12/16/2021 Assessment & Plan (04/03/2024 3:20 PM PROCUREMENT SPECIALIST): This is a chronic condition which [...] week Assessment & Plan (04/21/2023 2:20 PM PROCUREMENT SPECIALIST): This is a chronic condition which continues to improve 2 lb weight loss since last office visit Encouraged healthy eating, small portion sizes and exercise Discussed eating vegetables such as tomatoes, lettuce, pickles Assessment & Plan (01/19/2023 2:41 PM CDT): This is a chronic condition which continues 10 lb weight loss since last office visit due to bve-at-xzzzlsi diabetes Encouraged to take medications eat healthy and exercise Assessment & Plan (06/23/2022 11:06 AM CDT): This is a chronic condition which is improving with 10lb weight loss since last office visit. Encouraged healthy eating and exercise Continue Victoza to promote weight loss Assessment & Plan (03/24/2022 7:46 AM PROCUREMENT SPECIALIST): This is a chronic condition which is worsening Encouraged healthy eating and exercise Continue Victoza to promote weight loss Assessment & Plan (12/16/2021 10:12 AM CDT): This is a chronic condition which is worsening Encouraged healthy eating and exercise Continue Victoza to promote weight loss Hyperlipidemia associated with type 2 diabetes kaitlin padgett 09/30/2020 Assessment & Plan (04/03/2024 3:21 PM PROCUREMENT SPECIALIST): This is a chronic condition which [...] week. Assessment & Plan (04/21/2023 2:19 PM PROCUREMENT SPECIALIST): This is a chronic condition which [...] prescribed. Assessment & Plan (03/24/2022 7:45 AM PROCUREMENT SPECIALIST): This is a chronic condition which [...] prescribed. Assessment & Plan (06/13/2021 1:54 PM PROCUREMENT SPECIALIST): This is a chronic condition which is worsening and not at goal. Goal is less than 70. Personally reviewed lipid panel. LDL -156 on atorvastatin 40 mg daily (high intensity). Encouraged to eat healthy, include fresh fruits and vegetables daily and avoid eating fried foods more than once per week. Please take medications as prescribed. Assessment & Plan (03/31/2021 2:15 PM PROCUREMENT SPECIALIST): This is a chronic condition which is worsening and not at goal. Goal is less than 70. Personally reviewed lipid panel. LDL -156 on atorvastatin 40 mg daily (high intensity). Encouraged to eat healthy, include fresh fruits and vegetables daily and avoid eating fried foods more than once per week. Please take medications as prescribed. Assessment & Plan (02/12/2021 1:52 PM PROCUREMENT SPECIALIST): This is a chronic condition which [...] 06/28/2020 Assessment & Plan (04/03/2024 3:21 PM PROCUREMENT SPECIALIST): This is a chronic condition which [...] B/P Assessment & Plan (04/21/2023 2:19 PM PROCUREMENT SPECIALIST): This is a chronic condition which [...] prescribed. Assessment & Plan (03/24/2022 7:46 AM PROCUREMENT SPECIALIST): This is a chronic condition which [...] insulin Assessment & Plan (04/03/2024 3:20 PM PROCUREMENT SPECIALIST): This is a chronic condition which [...] losartan Assessment & Plan (04/21/2023 2:19 PM PROCUREMENT SPECIALIST): This is a chronic condition which [...] exam. last dilated eye exam was at [facility] foot exam completed, loss of [...] No history of macrovascular disease - CVA, [place]. Encouraged to take medications as prescribed. Labs per care everywhere- transcribed into [facility]. Assessment & Plan (03/24/2022 7:45 AM PROCUREMENT SPECIALIST): This is a chronic condition which [...] exam. last dilated eye exam was at [facility] foot exam completed, loss of [...] No history of macrovascular disease - CVA, [place]. Encouraged to take medications as prescribed. Labs per care everywhere- transcribed into [facility]. Assessment & Plan (12/16/2021 10:16 AM CDT): [...] exam. last dilated eye exam was at [facility] foot exam completed, loss of [...] No history of macrovascular disease - CVA, [place]. Encouraged to take medications as prescribed. Labs per care everywhere- transcribed into [facility]. Assessment & Plan (09/15/2021 2:32 PM CDT): [...] exam. last dilated eye exam was at [facility] foot exam completed, loss of [...] No history of macrovascular disease - CVA, [place]. Encouraged to take medications as prescribed. Labs per care everywhere- transcribed into [facility]. Assessment & Plan (06/13/2021 2:08 PM PROCUREMENT SPECIALIST): This is a chronic condition which [...] exam. last dilated eye exam was at [facility] foot exam completed, loss of [...] No history of macrovascular disease - CVA, [place]. Encouraged to take medications as prescribed. Assessment & Plan (03/31/2021 2:12 PM PROCUREMENT SPECIALIST): This is a chronic condition which [...] exam. last dilated eye exam was at [facility] foot exam completed, loss of [...] No history of macrovascular disease - CVA, [place]. Encouraged to take medications as prescribed. Assessment & Plan (02/12/2021 2:05 PM PROCUREMENT SPECIALIST): This is a chronic condition which [...] exam. last dilated eye exam was at [facility] foot exam completed, loss of [...] No history of macrovascular disease - CVA, [place]. Encouraged to take medications as prescribed. Assessment [...] exam. last dilated eye exam was at [facility] foot exam completed, loss of [...] No history of macrovascular disease - CVA, [place]. Encouraged to take medications as prescribed. Assessment [...] exam. last dilated eye exam was at [facility] foot exam completed, loss of [...] No history of macrovascular disease - CVA, [place]. Encouraged to take medications as prescribed. Assessment [...] exam. last dilated eye exam was at [facility] foot exam completed, loss of [...] No history of macrovascular disease - CVA, [place]. Assessment & Plan (03/25/2020 2:47 PM PROCUREMENT SPECIALIST): This is a chronic condition which [...] her medicine and she is taking them. [facility] called to review medication list. Monitor blood sugar 2x times a day. Encouraged annual eye exam. last dilated eye exam was at [facility] foot exam completed, loss of [...] No history of macrovascular disease - CVA, [place]. Assessment & Plan (01/23/2020 12:00 PM CDT): [...] No history of macrovascular disease - CVA, [place]. Assessment & Plan (09/22/2019 4:10 PM CDT): [...] daily history of macrovascular disease - CVA, [place]. Resolved Problems Problem Noted Date Diagnosed Date Resolved Date Homelessness 09/05/2024 12/07/2024 Morbid (severe) obesity due to excess calories 12/16/2021 03/24/2022 Assessment & Plan (12/16/2021 10:13 AM CDT): This is a chronic condition which is worsening Encouraged healthy eating and exercise Continue [facility] to promote weight loss Acute pain of [...] Description 12/21/2024 12:30 PM CDT Office Visit [facility] at [address] [place] [address] Gill Drew NP Type 2 diabetes mellitus with hyperglycemia, with long-term current use of insulin (HCC) (Primary Dx); Stress; Hypertension associated with diabetes (HCC); [employer] 780g Insulin pump in place; Class 3 severe obesity due to excess calories with serious comorbidity and body mass index (BMI) of 40.0 to 44.9 in adult 12/07/2024 1:00 PM CDT Office Visit [facility] at [address] [place] [address] Gill Drew NP Type 2 diabetes mellitus [...] on file Legal Sex Female 10:31 AM PROCUREMENT SPECIALIST Gender Identity Not on file Sexual [...] 04/03/2024, 09/0 12/2023, 04/21/2023, Additional history exists DTaP/Tdap/Td Vaccine (2 - Td or Tdap) 04/05/2025 04/05/2015 Hemoglobin A1C 06/06/2025 12/07/2024, 06/0 06/2024, 04/03/2024, Additional history exists Albumin Creatinine Ratio, Urine 09/05/2025 09/05/2024, 12/13/2023, 06/23/2022 Lipid Panel 09/05/2025 09/05/2024, 09/0 12/2023, 06/23/2022, Additional history exists eGFR 09/05/2025 09/05/2024, 09/0 12/2023, 11/06/2022, Additional history exists Procedures Procedure Name Priority Date/Time Associated Diagnosis [...] Blood 12/07/2024 1:11 PM CDT us Gill Drew SURVEY CREW CHIEF POINT OF CARE TEST ORDERABLES F inal Result * POCT glucose (12/07/2024 1:04 PM CDT) Pathologist [facility] Glucose Blood, POC 255 Normal Fasting 70 - 100, Random <200 mg/dL Blood 12/07/2024 1:04 PM CDT us Gill Drew SURVEY CREW CHIEF POINT OF CARE TEST ORDERABLES F inal Result * Albumin Creatinine Ratio, Urine (09/05/2024 1:20 PM CDT) [facility] Albumin Ur <12.0 mg/L Comment: Interpretive Data No reference range established. Current interpretive data was last revised 2018. Testing performed by: [address] [address] Creatinine Ur 149.7 mg/dL [facility] Comment: Interpretive Data No reference range established. Current interpretive data was last revised 2018. Testing performed by: [facility], [address] [place] [address]., [id number] Albumin Creatinine Ratio, Ur <8 1 - 29 mg/g [facility] Comment:Testing performed by : [address] [address] Urine 09/05/2024 1:20 PM CDT 09/05/2024 9:20 PM CDT us Gill Drew SURVEY CREW CHIEF LAB URINE ORDERABLES Final Resu lt Performing Organization Address [facility] de Phone Number [place] [phone] [address] [place] [address] * eGFR (09/05/2024 1:18 PM [...] was last reviewed 2021. Testing performed by: [facility], [address] [place] [address]., [id number] Blood 09/05/2024 1:18 PM CDT 09/05/2024 9:33 PM CDT Gill Drew NP LAB BLOOD ORDERABLES Final Resu lt Performing Organization Address [facility] [[email or web address]] Co de Phone Number [place] [phone] [address] [place] [address] * (ABNORMAL) Lipid panel (09/05/2024 [...] last revised on 2017. Testing performed by: [facility], [address] [place] [address]., [address] Triglycerides 107 <=149 mg/dL [facility] Comment: Interpretive Data Ages < [...] last revised on 2017. Testing performed by: [facility], [address] [place] [address]., [address] HDL 53 >=40 mg/dL [facility] Comment: Interpretive [...] last revised on 2017. Testing performed by: [facility], [address] [place] [address]., [address] LDL, calculated 161(H) <=129 mg/dL [facility] Comment: [...] 3. Mohsen Pelaez et al. FAB Cardiol. 2020 August 03;5(5):540-548. doi: [email or web address] Current Interpretive Data was last revised on 2023. Testing performed by: [address] [address] Non-HDL Cholesterol 180 mg/dL [facility] Comment: Interpretive [...] last revised on 2017. Testing performed by: [address] [address] Chol/HDL ratio 4 [facility] Comment:Testing performed by : [address] [address] Blood 09/05/2024 1:18 PM CDT 09/05/2024 9:19 PM CDT Narrative [facility] - 09/05/2024 9:52 PM CDT These lab test should be done fasting. This means do not eat or drink for at least 12 hours prior to getting your blood drawn. Has the patient been fasting for 8 hours or more?->Yes Gill Drew NP LAB [place]LOOD [place] [address] [address] [place] [address] * Screening Mammogram Bilateral W Radhika (11/12/2021 [...] Most Recently Relevant to Health Maintenance Insurance [facility] Advance Directives For more information, please contact: [phone] * Full Code (Latest Code Status on File) Date Activated Date Inactivated Comments 10/27/2020 6:21 PM 10/29/2020 6:48 PM * Full Code Date Activated Date Inactivated Comments 09/28/2017 11:10 PM 10/01/2017 6:31 PM Care Teams Lead Mechanical Engineer Relationship Specialty Start Date End Date Len Ramsey MD [address] [place] [address] PCP - General 12/27/18 Gill Drew, SURVEY CREW CHIEF [address] [place] [address] Nurse Practitioner Endocrinology Diabetes & Metabolism 02/05/20
--- OUTSIDE RECORDS SUMMARY | 2025-02-17 17:28 | XMS_ITS | Encounter Summary ---
Author Organization [facility] Healthcare Address [address] [place] [id number] Care Team Providers Care Spare Parts Clerk Name Role Phone Joan Myers MD Primary Care Provider [phone] Gill Drew EDGE PLUGGER Unavailable [phone] Encounter Details Date Type Department Care Team (Late st Contact Info) Description 02/17/2021 Orders Only [facility] [address] [place] [address] Joan Myers MD [address] [place] [address] Social History Tobacco Use Types [...] on file Legal Sex Female 10:31 AM BACKSHOE PERSON Gender Identity Not on file Sexual Orientation Not on file documented as of this encounter Plan of Treatment Not on file documented as of this encounter Visit Diagnoses Not on filedocumented in this encounter Care Teams Spare Parts Clerk Relationship Specialty Start Date End Date Joan Myers MD [address] [place] [address] PCP - General 12/27/18 Gill Drew NP [address] [place] [address] Nurse Practitioner Endocrinology Diabetes & Metabolism 02/05/20 documented as of this encounter
[2025-02-17 17:37] VITALS: BP 140/78; PULSE 103; RESP 20; TEMP 37; O2SAT 96
--- NOTE | 2025-02-17 17:37 | ED_ITS ---
HPI - Extremity Injury (Lower) General Chief Complaint: Extremity Injury, Lower Stated Complaint: left pinky toe inj Time Seen by Provider: 02/17/25 17:37 Source: patient, RN notes reviewed and old records reviewed Mode of arrival: ambulatory Limitations: no limitations History of Present Illness HPI Narrative: 60-year-old female presents to the [facility] with left pinky toe pain. Mild swelling noted without bruising. States that she kicked a easel approximately 1 to 1-1/2 hours prior to arrival. No treatment prior to arrival Onset (ago): hour(s) (1-1.5) Related Data Home Medications ?Medication ?Instructions ?Recorded ?Confirmed ?Last Taken ?Type pen needle, diabetic 32 gauge x 11/26/19 08/18/23 Unk nown History (Unifine Pentips) gabapentin 300 mg capsule 300 mg PO DAILY 03/12/20 Unknown History atorvastatin 40 mg tablet mg 08/31/24 Unknown History cetirizine 10 mg tablet mg 08/31/24 Unknown History insulin lispro 100 unit/mL 01/06/25 Unknown History subcutaneous solution Allergies Allergy/AdvReac Type Severity Reaction Status Date / Time cephalexin Allergy Intermediate Swelling Verified 02/17/25 17:37 ciprofloxacin Allergy Intermediate Swelling Verified 02/17/25 17:37 egg Allergy Unknown Unknown Verified 02/17/25 17:37 shellfish derived Allergy Unknown Unknown Verified 02/17/25 17:37 sulfamethoxazole Allergy Unknown Rash Verified 02/17/25 17:37 trimethoprim Allergy Unknown Rash Verified 02/17/25 17:37 peanut Allergy Rash Verified 02/17/25 17:37 Review of Systems Review of Systems: All systems reviewed & are unremarkable except as noted in HPI and below Constitutional: Constitutional: Reports no additional constitutional complaints ENT: Reports system reviewed and no additional complaints, except as documented Cardiovascular: Cardiovascular: Reports no additional cardiovascular complaints, Denies chest pain and Denies dyspnea Respiratory: Respiratory: Reports no additional respiratory complaints, Denies chest congestion, Denies cough and Denies dyspnea Musculoskeletal: Musculoskeletal: Reports as per HPI Integumentary/Breasts: Skin/Breast: Reports system reviewed and no additional complaints, except as docu [facility] Past Medical History Medical History Anxiety Arthritis Asthma Hx of migraines Neck pain Depression Hypercholesteremia History of gastroesophageal reflux (GERD) Post traumatic stress disorder (PTSD) Hypertension Diabetes Surgical History Surgical History Hx of tubal ligation History of carpal tunnel surgery bilateral Family History Family History Father , COPD Smoker in home Mother Diabetes mellitus Grandparent Ovarian cancer Social History Social History Smoking packs per day: 0.5 Smoking cigarettes per day: 10.0 Years smoked: 50 Smoking pack-years: 25.00 Smoking status: Current every day smoker Tobacco type: cigarettes Second hand tobacco smoke exposure: No Alcohol intake: never Substance use: never Living arrangements: with family Occupation/Education: unemployed Gender identity (if verbalized by the patient): Female Comments At the time of my signature, I reviewed and agree with the nursing past medical, surgical, social, and family history. There is no relevant family history pertinent to the patient complaint. Exam Const: General: cooperative, healthy appearing, comfortable, no acute distress, well developed, alert and well nourished Nutritional Appearance: well nourished and obese Orientation/consciousness: patient oriented x3 Limitations: no limitations HENMT: Head: normal to inspection Eyes: General: appearance normal, both eyes and all related structures Alignment and Position: alignment normal Neck: Neck: normal visual inspection, full ROM, no lymphadenopathy and no meningeal signs Chest: Chest palpation & inspection: normal inspection of the chest Resp: Effort & Inspection: normal respiratory effort and able to speak in complete sentences Cardio: Rate: regular rate Skin: General skin exam: normal color and no rashes or lesions noted Neuro: General: patient oriented x3, gait normal, moves all extremities and no meningeal signs Cognition (Neuro): normal cognition Speech: normal speech Gait exam (Neuro): Normal gait present Extrem: General: normal to inspection, full ROM, capillary refill normal and normal gait Left lower extremity: foot Details: tenderness Location: of another digit Location: the 5th digit and at the proximal phalanx Psych: Appearance: grossly normal and well kempt Mental Status: mental status grossly normal Speech and movement: Normal speech and movement present and Clear speech present Affect: normal affect Attitude: cooperative Course Course Level of Care: Express Care Visit Vital Signs Vital signs: Vital Signs Temperature 98.6 F 02/17/25 17:37 Pulse Rate 103 H 02/17/25 17:37 Respiratory Rate 20 02/17/25 17:37 Blood Pressure 140/78 02/17/25 17:37 Pulse Oximetry 96 02/17/25 17:37 Oxygen Delivery Room Air 02/17/25 17:37 Temperature 98.6 F 02/17/25 17:37 Pulse Rate 103 H 02/17/25 17:37 Respiratory Rate 20 02/17/25 17:37 Blood Pressure 140/78 02/17/25 17:37 Pulse Oximetry 96 02/17/25 17:37 Oxygen Delivery Room Air 02/17/25 17:37 Reviewed MDM - Extremity Injury (Lower) MDM Narrative Medical decision making narrative: patient sitting in exam room. Patient is nontoxic, vitals are stable. Patient presents with 1 hour of 5th toe pain left foot. X-ray shows nondisplaced fracture of the proximal phalanx. Tylenol had been given in clinic. Patient placed in postop shoe. Stressed importance of following up with primary care provider Discharge instructions reviewed with patient, as well as provided in writing per nursing staff. The instructions also include specific and strict return/GO TO THE ER as well as f/u information. All questions have been answered, and the patient deny any further questions with discharge and discharge plan. Some parts of this dictation were generated by voice recognition software and may contain typographical and/or grammatical inaccuracies. 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 Findings: There is a nondisplaced fracture proximal aspect of the proximal phalanx fifth digit No significant degenerative changes. Soft tissues unremarkable. Impression: Fifth digit fracture Critical Care Time Critical Care Time Critical Care Time: No Discharge Plan Discharge Clinical Impression: Closed fracture of fifth toe of left foot Patient Disposition: Home Condition: Stable Instructions: Antibiotic Form, Toe Fracture (ED) Additional Instructions: control your blood sugars follow-up with primary care provider follow-up with podiatry rest, ice and elevate every 2-3 hours for 15-20 minutes while awake take Tylenol alternating with Motrin as needed for pain any new concerns please proceed to the nearest emergency room Patient Language: Senegalese Prescriptions: No Action gabapentin 300 mg capsule 300 mg PO DAILY atorvastatin 40 mg tablet cetirizine 10 mg tablet insulin lispro 100 unit/mL solution (DME) pen needle, diabetic [Unifine Pentips] 32 gauge x 5/32 Needle MISCELLANEOUS Follow-up/Referrals: Joce,Isabella Montez APRN [Primary Care Provider, Unknown] Time of Disposition: 18:26
[2025-02-17] MEDS: ACETAMINOPHEN 500 MG TABLET 1000 MG PO (17:47)
== END 2025-02-17 18:31 | disposition home or self-care (01) ==
PROVIDERS: Emergency Provider Nurse Practitioner; PCP Nurse Practitioner Family
DX: S92.502A Displaced unspecified fracture of left lesser toe(s), initial encounter for closed fracture (principal); I10 Essential (primary) hypertension; E11.9 Type 2 diabetes mellitus without complications; F17.210 Nicotine dependence, cigarettes, uncomplicated; W22.09XA Striking against other stationary object, initial encounter
CPT/HCPCS: 73630; 99214; A9270; G0463